=== PATIENT | female | born 1960 | race Caucasian/White ===

== ENCOUNTER 2017-05-26 16:30 | Emergency (ER) | payer MEDICARE, MEDICAID ==
[2017-05-26] MEDS ORDERED: Sodium Chloride 0.9% 10 ML Syringe FLUSH PRN (16:52)
--- NOTE | 2017-05-26 17:06 | EDM.PDOC ---
ED HPI GENERAL MEDICAL PROBLEM - General Chief Complaint: Respiratory Problem Stated Complaint: ILLNESS Time Seen by Provider: 05/26/17 16:40 Source of Information: Reports: Patient, Family History Limitations: Reports: No Limitations - History of Present Illness INITIAL COMMENTS - FREE TEXT/NARRATIVE: 49-year-old female who has chronic bronchitis, and a history of CHF presents with worsening cough, congestion, and low O2 saturations at the alf. She was seen in the clinic 3 days ago and given some pulmonary treatments. She seems to be worsening however, no fever. She was brought in by private car, her sisters brought her in because she is worsening. On arrival her O2 saturations were 85%, yamil to 93% on oxygen but she normally does not need O2. She is also complained of some intermittent right chest discomfort, worse with breathing. Onset: Gradual (Over the past several days) Severity: Moderate Associated Symptoms: Reports: Malaise, Shortness of Breath, Weakness. Denies: Fever/Chills, Headaches Right Chest Pain Score (Numeric/FACES): 5 - Related Data Allergies Allergy/AdvReac Type Severity Reaction Status Date / Time aspirin Allergy Cannot Verified 01/02/15 08:25 Remember cefaclor [From Ceclor] Allergy Cannot Verified 01/02/15 08:25 Remember Penicillins Allergy Rash Verified 01/02/15 08:25 Sulfa (Sulfonamide Allergy Rash Verified 01/02/15 08:25 Antibiotics) Home Meds: Home Meds ALPRAZolam [Alprazolam] 1 mg PO QID 03/19/14 [History] Acetaminophen [Acetaminophen Extra Strength] 1 - 2 tab PO Q46H PRN 03/19/14 [ History] Albuterol [Proventil Neb Soln] 1 ampule IH Q4H PRN 03/19/14 [History] Uqecv-M-Lhnswbmfhospk [Beano] 2 - 3 tab PO TIDAC 03/19/14 [History] Budesonide [Pulmicort] 0.5 mg IH BID 03/19/14 [History] Citalopram Hydrobromide [Citalopram HBr] 40 mg PO DAILY 03/19/14 [History] Codeine/guaiFENesin [Robitussin AC] 5 - 10 ml PO QID PRN 03/19/14 [History] Fluticasone Propionate [Flonase] 2 spray KANDI DAILY 03/19/14 [History] Ibuprofen 2 - 3 tab PO Q46H PRN 03/19/14 [History] Loperamide HCl [Anti-Diarrheal] 2 mg PO QID PRN 03/19/14 [History] Loratadine [Claritin] 1 mg PO DAILY 03/19/14 [History] Montelukast [Singulair] 10 mg PO DAILY 03/19/14 [History] Multivitamin [Multiple Vitamins] 1 tab PO DAILY 03/19/14 [History] Pseudoephedrine HCl [Nexafed] 30 mg PO Q6H PRN 03/19/14 [History] Acetaminophen with Codeine [Tylenol with Codeine #3 Tablet] 1 - 2 tab PO Q4HR PRN 12/31/14 [History] Ferrous Sulfate [Ferrous Sulfate] 325 mg PO DAILY 12/31/14 [History] Furosemide [Furosemide] 40 mg PO DAILY 12/31/14 [History] Albuterol [Ventolin HFA] 2 puff INH Q4H PRN 05/26/17 [History] Ipratropium [Atrovent HFA] 2 puff INH BID 05/26/17 [History] Ipratropium [Atrovent] 2.5 ml INH BID PRN 05/26/17 [History] Nystatin 1 appful TOP BID 05/26/17 [History] guaiFENesin [Robafen] 10 ml PO Q6H PRN 05/26/17 [History] Past Medical History HEENT History: Reports: Hard of Hearing Cardiovascular History: Reports: Hypertension Other Cardiovascular History: open heart Respiratory History: Reports: Bronchitis, Recurrent Psychiatric History: Reports: Anxiety, Developmental Delay, Learning Disability , Other (See Below) Other Psychiatric History: personality disorder - Past Surgical History Other Cardiovascular Surgeries/Procedures: open heart surg when [age]. mitral valve insuficiency, tricuspid valve desease cardiomegaly Other Musculoskeletal Surgeries/Procedures:: right knee three screws Social & Family History - Tobacco Use Smoking Status *Q: Never Smoker Second Hand Smoke Exposure: No - Caffeine Use Caffeine Use: Reports: Coffee - Alcohol Use Days Per Week of Alcohol Use: 0 - Recreational Drug Use Recreational Drug Use: No ED ROS GENERAL - Review of Systems Review Of Systems: See Below Constitutional: Reports: Malaise, Weakness. Denies: Fever, Chills HEENT: Reports: No Symptoms Respiratory: Reports: Shortness of Breath, Wheezing, Cough Cardiovascular: Reports: Chest Pain (Right sided, intermittent) GI/Abdominal: Denies: Abdominal Pain, Nausea, Vomiting : Reports: No Symptoms Neurological: Denies: Headache Psychiatric: Reports: No Symptoms ED EXAM, GENERAL - Physical Exam Exam: See Below Exam Limited By: Respiratory Distress (Appears to be in mild respiratory distress with increased effort, persistent moist cough) General Appearance: Alert, Mild Distress Eye Exam: Bilateral Eye: EOMI, Normal Inspection (No jaundice, normal hydration) Throat/Mouth: Normal Inspection Respiratory/Chest: Respiratory Distress (Mild respiratory distress and increased effort is noticed), Rales (Bilateral basilar rales are heard somewhat worse on the right), Wheezing (Diffuse expiratory wheezing) Cardiovascular: Regular Rate, Rhythm GI/Abdominal: Soft, Non-Tender, Other (morbidly patient is morbidly obese) Extremities: Pedal Edema (1+ symmetric pedal edema) Neurological: Alert, Oriented Psychiatric: Flat Affect Skin Exam: Warm, Dry Course - Vital Signs Last Recorded V/S: Last Vital Signs Temp 100.2 F 05/26/17 18:38 Pulse 94 05/26/17 18:38 Resp 18 05/26/17 18:38 BP 128/74 05/26/17 18:38 Pulse Ox 91 L 05/26/17 18:38 - Orders/Labs/Meds Orders: Active Orders 24 hr Category Date Time Status Insert Urinary Catheter [OM.PC] Stat Care 05/26/17 18:00 Ordered Urinary Catheter Assessment [RC] ASDIRECTED Care 05/26/17 17:50 Active Chest 1V Frontal [CR] Stat Exams 05/26/17 16:51 Taken CULTURE BLOOD [BC] Urgent Lab 05/26/17 17:43 Results CULTURE BLOOD [BC] Urgent Lab 05/26/17 17:53 Results Blood Culture x2 Reflex Set [OM.PC] Urgent Oth 05/26/17 17:39 Ordered Saline Lock Insert [OM.PC] Routine Oth 05/26/17 16:52 Ordered Labs: Laboratory Tests 05/26/17 05/26/17 05/26/17 Range/Units 17:06 17:06 17:50 WBC 18.5 H (4.5-11.0) K/uL RBC 4.59 (3.30-5.50) M/uL Hgb 12.9 D (12.0-15.0) g/dL Hct 41.5 (36.0-48.0) % MCV 90 (80-98) fL MCH 28 (27-31) pg MCHC 31 L (32-36) % Plt Count 161 (150-400) K/uL Add Manual Diff Yes Neutrophils % (Manual) 73 H (36-66) % Band Neutrophils % 10 (5-11) % Lymphocytes % (Manual) 4 L (24-44) % Monocytes % (Manual) 12 H (2-6) % Metamyelocytes % 1 % Sodium 138 L (140-148) mmol/L Potassium 4.1 (3.6-5.2) mmol/L Chloride 98 L (100-108) mmol/L Carbon Dioxide 30 (21-32) mmol/L Anion Gap 14.1 H (5.0-14.0) mmol/L BUN 22 H D (7-18) mg/dL Creatinine 1.3 H D (0.6-1.0) mg/dL Est Cr Clr Drug Dosing 33.88 mL/min Estimated GFR (MDRD) 42 L (>60) Glucose 110 H (74-106) mg/dL Lactic Acid (0.4-2.0) mmol/L Calcium 8.2 L D (8.5-10.1) mg/dL Total Bilirubin 0.7 D (0.2-1.0) mg/dL AST 58 H D (15-37) U/L ALT 57 D (12-78) U/L Alkaline Phosphatase 102 (46-116) U/L Troponin I 0.062 H* (0.000-0.056) ng/mL Total Protein 6.7 (6.4-8.2) g/dL Albumin 3.0 L (3.4-5.0) g/dL Globulin 3.7 H (2.3-3.5) g/dL Albumin/Globulin Ratio 0.8 L (1.2-2.2) Urine Color [place] Urine Appearance Cloudy Urine pH 5.0 (4.5-8.0) Ur Specific [place] 1.020 (1.008-1.030) Urine Protein Negative (NEGATIVE) mg/dL Urine Glucose (UA) Normal (NEGATIVE) mg/dL Urine Ketones Negative (NEGATIVE) mg/dL Urine Occult Blood Negative (NEGATIVE) Urine Nitrite Negative (NEGATIVE) Urine Bilirubin Small (NEGATIVE) Urine Urobilinogen 1 (NORMAL) mg/dL Ur Leukocyte Esterase Negative (NEGATIVE) Urine RBC 0-5 (0-5) Urine WBC 5-10 H (0-5) Ur Epithelial Cells Moderate Amorphous Sediment Moderate Urine Bacteria Few Urine Mucus Moderate 05/26/17 Range/Units 17:53 WBC (4.5-11.0) K/uL RBC (3.30-5.50) M/uL Hgb (12.0-15.0) g/dL Hct (36.0-48.0) % MCV (80-98) fL MCH (27-31) pg MCHC (32-36) % Plt Count (150-400) K/uL Add Manual Diff Neutrophils % (Manual) (36-66) % Band Neutrophils % (5-11) % Lymphocytes % (Manual) (24-44) % Monocytes % (Manual) (2-6) % Metamyelocytes % % Sodium (140-148) mmol/L Potassium (3.6-5.2) mmol/L Chloride (100-108) mmol/L Carbon Dioxide (21-32) mmol/L Anion Gap (5.0-14.0) mmol/L BUN (7-18) mg/dL Creatinine (0.6-1.0) mg/dL Est Cr Clr Drug Dosing mL/min Estimated GFR (MDRD) (>60) Glucose (74-106) mg/dL Lactic Acid 2.6 H (0.4-2.0) mmol/L Calcium (8.5-10.1) mg/dL Total Bilirubin (0.2-1.0) mg/dL AST (15-37) U/L ALT (12-78) U/L Alkaline Phosphatase (46-116) U/L Troponin I (0.000-0.056) ng/mL Total Protein (6.4-8.2) g/dL Albumin (3.4-5.0) g/dL Globulin (2.3-3.5) g/dL Albumin/Globulin Ratio (1.2-2.2) Urine Color Urine Appearance Urine pH (4.5-8.0) Ur Specific [place] (1.008-1.030) Urine Protein (NEGATIVE) mg/dL Urine Glucose (UA) (NEGATIVE) mg/dL Urine Ketones (NEGATIVE) mg/dL Urine Occult Blood (NEGATIVE) Urine Nitrite (NEGATIVE) Urine Bilirubin (NEGATIVE) Urine Urobilinogen (NORMAL) mg/dL Ur Leukocyte Esterase (NEGATIVE) Urine RBC (0-5) Urine WBC (0-5) Ur Epithelial Cells Amorphous Sediment Urine Bacteria Urine Mucus Meds: Medications Discontinued Medications Generic Name Dose Route Start Last Admin Trade Name Freq PRN Reason Stop Dose Admin Acetaminophen 1,000 mg 05/26/17 18:07 05/26/17 18:13 Tylenol Extra Strength PO 05/26/17 18:08 1,000 mg ONETIME ONE Administration Furosemide 80 mg 05/26/17 17:25 05/26/17 17:38 Lasix IVPUSH 05/26/17 17:26 80 mg ONETIME ONE Administration Levofloxacin/Dextrose 750 mg/ 150 mls @ 100 mls/hr 05/26/17 18:08 05/26/17 18 :15 Premix IV 05/26/17 19:37 100 mls/hr ONETIME ONE Administration Sodium Chloride 10 ml 05/26/17 16:52 05/26/17 17:16 Saline Flush FLUSH 10 ml ASDIRECTED PRN Administration Keep Vein Open - Re-Assessments/Exams Free Text/Narrative Re-Assessment/Exam: 05/26/17 18:09 An IV was established. A portable chest x-ray showed likely congestive heart failure, cardiomegaly and a right upper lobe infiltrate. Patient was then given 80 mg of IV Lasix, blood cultures and lactic acid were obtained followed by 750 mg of IV Levaquin. There were no hospital beds available so she was transferred to [place], accepted by Dr. Liriano. She is a DNR. 05/26/17 18:10 White count revealed 18.5. Lactic acid 2.6. Developing sepsis was likely, fluids were continued. Departure - Departure Time of Disposition: 18:50 Disposition: Home, Self-Care 01 Condition: Poor Clinical Impression: Pneumonia, Septicemia Congestive heart failure Qualifiers: Congestive heart failure type: combined Congestive heart failure chronicity: acute on chronic Qualified Code(s): I50.43 - Acute on chronic combined systolic (congestive) and diastolic (congestive) heart failure - Discharge Information Referrals: Christian Fernandez MD [Primary Care Provider] - Forms: ED Department Discharge Care Plan Goals: Patient will be transferred by EMS to [place], admitted to the hospitalist service at [facility]. - My Orders Last 24 Hours: My Active Orders 05/26/17 16:51 Chest 1V Frontal [CR] Stat 05/26/17 16:52 Saline Lock Insert [OM.PC] Routine 05/26/17 17:39 Blood Culture x2 Reflex Set [OM.PC] Urgent 05/26/17 17:43 CULTURE BLOOD [BC] Urgent 05/26/17 17:50 Urinary Catheter Assessment [RC] ASDIRECTED 05/26/17 17:53 CULTURE BLOOD [BC] Urgent 05/26/17 18:00 Insert Urinary Catheter [OM.PC] Stat - Assessment/Plan Last 24 Hours: My Active Orders 05/26/17 16:51 Chest 1V Frontal [CR] Stat 05/26/17 16:52 Saline Lock Insert [OM.PC] Routine 05/26/17 17:39 Blood Culture x2 Reflex Set [OM.PC] Urgent 05/26/17 17:43 CULTURE BLOOD [BC] Urgent 05/26/17 17:50 Urinary Catheter Assessment [RC] ASDIRECTED 05/26/17 17:53 CULTURE BLOOD [BC] Urgent 05/26/17 18:00 Insert Urinary Catheter [OM.PC] Stat
[2017-05-26] MEDS ORDERED: Furosemide 40 MG/4 ML VIAL IVPUSH ONE (17:25)
[2017-05-26] MEDS ORDERED: Acetaminophen 500 MG Tab PO ONE (18:07)
[2017-05-26] MEDS ORDERED: Levofloxacin/Dextrose 5%-Water 750 MG in Premix Bag 1 BAG IV ONE (18:08)
[2017-05-26 18:39] VITALS: BP 128/74
--- NOTE | 2017-05-27 11:58 | CR ---
Portable chest Comparison: March 2014. There is cardiac enlargement. There is vascular engorgement. There are small bilateral effusions. The re is a pleural-based soft tissue density in the peripheral right upper lobe. The finding may reflect a dense pneumonia. A mass cannot be excluded. Impression: 1. CHF with interstitial edema and small effusions. 2. Focal pleural-based density peripheral right upper lobe. Correlate for pneumonia. Close follow-up recommended. A mass is not excluded.
== END 2017-05-26 18:50 | disposition home or self-care (01) ==
LOC: JP.ED 16:30
DX: A41.9 Sepsis, unspecified organism (principal); J18.9 Pneumonia, unspecified organism; I11.0 Hypertensive heart disease with heart failure; I50.43 Acute on chronic combined systolic (congestive) and diastolic (congestive) heart failure; Z88.2 Allergy status to sulfonamides
CPT/HCPCS: 36415; 51702; 71010; 80053; 81001; 83605; 84484; 85025; 87040; 87077; 87184; 96365; 96375; 99284; A9270; J1940; J1956; J7050

== ENCOUNTER 2017-12-26 12:15 | Inpatient (IN) | payer MEDICARE, MEDICAID ==
[2017-12-26] MEDS ORDERED: Albuterol/Ipratropium 3.0-0.5 MG/3 ML Neb Soln NEB ONE (13:09)
--- NOTE | 2017-12-26 13:13 | EDM.PDOC ---
ED HPI GENERAL MEDICAL PROBLEM - General Chief Complaint: Respiratory Problem Stated Complaint: SINUS INFECTION LOW 02 Time Seen by Provider: 12/26/17 13:00 Source of Information: Reports: Patient, Family History Limitations: Reports: No Limitations - History of Present Illness INITIAL COMMENTS - FREE TEXT/NARRATIVE: 49-year-old female who has COPD, [facility] who uses oxygen usually only at night has had an upper respiratory cold for the past several weeks but over the past several days it has gotten much worse, went into her lungs, she is coughing, short of breath, and her O2 sats are lower than her usual baseline. She's been running low-grade fevers. Cough is becoming productive. No nausea or vomiting, no significant pain. Onset: Gradual Severity: Moderate Associated Symptoms: Reports: Cough, Fever/Chills, Shortness of Breath, Weakness. Denies: Chest Pain, Nausea/Vomiting Back Pain Score (Numeric/FACES): 3 Left Shoulder Pain Score (Numeric/FACES): 4 - Related Data Allergies Allergy/AdvReac Type Severity Reaction Status Date / Time aspirin Allergy Cannot Verified 01/02/15 08:25 Remember cefaclor [From Ceclor] Allergy Cannot Verified 01/02/15 08:25 Remember Penicillins Allergy Rash Verified 01/02/15 08:25 Sulfa (Sulfonamide Allergy Rash Verified 01/02/15 08:25 Antibiotics) Home Meds: Home Meds ALPRAZolam [Alprazolam] 1 mg PO TID 03/19/14 [History] Albuterol [Proventil Neb Soln] 1 ampule IH Q4H PRN 03/19/14 [History] Budesonide [Pulmicort] 0.5 mg IH BID 03/19/14 [History] Citalopram Hydrobromide [Citalopram HBr] 40 mg PO DAILY 03/19/14 [History] Fluticasone Propionate [Flonase] 1 spray KANDI BID 03/19/14 [History] Loratadine [Claritin] 10 mg PO DAILY 03/19/14 [History] Montelukast [Singulair] 10 mg PO DAILY 03/19/14 [History] Multivitamin [Multiple Vitamins] 1 tab PO DAILY 03/19/14 [History] Pseudoephedrine HCl [Nexafed] 30 mg PO Q6H PRN 03/19/14 [History] Ferrous Sulfate 325 mg PO DAILY 12/31/14 [History] Albuterol [Ventolin HFA] 2 puff INH Q4H PRN 05/26/17 [History] Nystatin 1 appful TOP BID 05/26/17 [History] guaiFENesin [Robafen] 10 ml PO Q4H PRN 05/26/17 [History] Acetaminophen [Acetaminophen ER] 500 mg PO QID 12/26/17 [History] Clindamycin HCl 600 mg PO ASDIRECTED PRN 12/26/17 [History] Dextran 70/Hypromellose/PF [Artificial Tears Drops] 1 each OP Q4H PRN 12/26/17 [ History] Nystatin 1 each TOP ASDIRECTED PRN 12/26/17 [History] Sennosides/Docusate Sodium [Senna Plus Tablet] 2 tab PO Q12HR PRN 12/26/17 [ History] Triamterene/Hydrochlorothiazid [Triamterene-HCTZ 37.5-25 MG] 1 each PO DAILY [History] traMADol HCl [Tramadol HCl] 50 mg PO QID PRN 12/26/17 [History] Past Medical History HEENT History: Reports: Hard of Hearing Cardiovascular History: Reports: Hypertension Other Cardiovascular History: open heart Respiratory History: Reports: Bronchitis, Recurrent Psychiatric History: Reports: Anxiety, Developmental Delay, Learning Disability , Other (See Below) Other Psychiatric History: personality disorder - Infectious Disease History Infectious Disease History: Reports: Chicken Pox, Measles, Mumps - Past Surgical History Other Cardiovascular Surgeries/Procedures: open heart surg when [age]. mitral valve insuficiency, tricuspid valve desease cardiomegaly Other Musculoskeletal Surgeries/Procedures:: right knee three screws Social & Family History - Tobacco Use Smoking Status *Q: Never Smoker - Caffeine Use Caffeine Use: Reports: Coffee - Recreational Drug Use Recreational Drug Use: No ED ROS GENERAL - Review of Systems Review Of Systems: See Below Constitutional: Denies: Fever, Chills Respiratory: Reports: Shortness of Breath, Cough, Sputum Cardiovascular: Denies: Chest Pain GI/Abdominal: Denies: Abdominal Pain, Nausea, Vomiting : Reports: No Symptoms Skin: Reports: No Symptoms Neurological: Reports: Weakness. Denies: Headache ED EXAM, GENERAL - Physical Exam Exam: See Below Exam Limited By: No Limitations General Appearance: Alert, No Apparent Distress Head: Atraumatic Respiratory/Chest: No Respiratory Distress, Crackles, Rales, Wheezing (Patient has diffuse rales, expiratory wheezes), Other (O2 saturations were only in the low to mid 80s without O2, O2 was applied) Cardiovascular: Regular Rate, Rhythm Neurological: Alert, Oriented Psychiatric: Normal Affect, Normal Mood Skin Exam: Warm, Dry Course - Vital Signs Last Recorded V/S: Last Vital Signs Temp 98.1 F 12/27/17 11:44 Pulse 74 12/27/17 11:44 Resp 16 12/27/17 11:44 BP 91/71 12/27/17 11:44 Pulse Ox 91 L 12/27/17 11:44 - Orders/Labs/Meds Orders: Active Orders 24 hr Category Date Time Status UA W/MICROSCOPIC [URIN] Stat Lab 12/26/17 14:44 Ordered Medication Orders Acetaminophen (Tylenol) 650 mg PO Q4H PRN PRN Reason: Pain (Mild 1-3)/fever Last Admin: 12/27/17 00:36 Dose: 650 mg Admin: 12/26/17 20:15 Dose: 650 mg Albuterol (Proventil Neb Soln) 2.5 mg INH Q4H PRN PRN Reason: Shortness of Breath Albuterol (Ventolin Hfa) 0 gm INH Q4H PRN PRN Reason: Shortness of Breath Albuterol/Ipratropium (Duoneb 3.0-0.5 Mg/3 Ml) 3 ml NEB QIDRT [facility] Last Admin: 12/27/17 11:07 Dose: 3 ml Admin: 12/27/17 07:28 Dose: 3 ml Admin: 12/26/17 20:46 Dose: 3 ml Admin: 12/26/17 16:51 Dose: 3 ml Alprazolam (Xanax) 1 mg PO QID [facility] Last Admin: 12/27/17 09:06 Dose: 1 mg Admin: 12/27/17 05:04 Dose: 1 mg Admin: 12/26/17 21:04 Dose: 1 mg Admin: 12/26/17 16:50 Dose: 1 mg Budesonide (Pulmicort) 0.5 mg INH BIDRT [facility] Last Admin: 12/27/17 07:28 Dose: 0.5 mg Admin: 12/26/17 20:46 Dose: 0.5 mg Citalopram Hydrobromide (Celexa) 40 mg PO DAILY [facility] Last Admin: 12/27/17 08:54 Dose: 40 mg Enoxaparin Sodium (Lovenox) 40 mg SUBCUT Q24H [facility] Last Admin: 12/26/17 17:00 Dose: 40 mg Fluticasone Propionate (Flonase) 0 gm KANDI DAILY [facility] Last Admin: 12/27/17 08:54 Dose: 2 spray Furosemide (Lasix) 40 mg PO DAILY [facility] Last Admin: 12/27/17 08:54 Dose: 40 mg Guaifenesin/Codeine Phosphate (Robitussin Ac) 5 - 10 ml PO Q4H PRN PRN Reason: Cough Last Admin: 12/26/17 21:00 Dose: 10 ml Levofloxacin/Dextrose 500 mg/ (Premix) 100 mls @ 100 mls/hr IV Q24H [facility] Last Admin: 12/26/17 16:43 Dose: 100 mls/hr Sodium Chloride (Normal Saline) 1,000 mls @ 75 mls/hr IV ASDIRECTED [facility] Last Admin: 12/27/17 05:03 Dose: 75 mls/hr Infusion: 12/27/17 05:03 Dose: 75 mls/hr Admin: 12/26/17 17:00 Dose: 75 mls/hr Loratadine (Claritin) 10 mg PO DAILY [facility] Last Admin: 12/27/17 08:54 Dose: 10 mg Magnesium Hydroxide (Milk Of Magnesia) 30 ml PO Q12H PRN PRN Reason: Constipation Methylprednisolone Sodium Succinate (Solu-Medrol) 40 mg IVPUSH Q6H [facility] Last Admin: 12/27/17 09:06 Dose: 40 mg Admin: 12/27/17 03:46 Dose: 40 mg Admin: 12/26/17 21:04 Dose: 40 mg Admin: 12/26/17 16:43 Dose: 40 mg Montelukast Sodium (Singulair) 10 mg PO DAILY [facility] Last Admin: 12/27/17 08:55 Dose: 10 mg Ondansetron HCl (Zofran) 4 mg IV Q4H PRN PRN Reason: Nausea/Vomiting Polyethylene Glycol (Miralax) 17 gm PO DAILY PRN PRN Reason: Constipation Senna/Docusate Sodium (Senna Plus) 1 tab PO BID PRN PRN Reason: Constipation Sodium Chloride (Saline Flush) 10 ml FLUSH ASDIRECTED PRN PRN Reason: Keep Vein Open Tramadol HCl (Ultram) 50 mg PO QID [facility] Last Admin: 12/27/17 09:06 Dose: 50 mg Admin: 12/27/17 05:03 Dose: 50 mg Admin: 12/26/17 21:04 Dose: 50 mg Admin: 12/26/17 16:44 Dose: 50 mg Triamterene/HCTZ (Maxzide 25-37.5 Mg) 1 each PO DAILY [facility] Last Admin: 12/27/17 08:55 Dose: 1 each Labs: Laboratory Tests 12/26/17 12/26/17 12/26/17 Range/Units 13:18 13:18 14:44 WBC 7.2 (4.5-11.0) K/uL RBC 5.07 (3.30-5.50) M/uL Hgb 13.7 (12.0-15.0) g/dL Hct 42.5 (36.0-48.0) % MCV 84 (80-98) fL MCH 27 (27-31) pg MCHC 32 (32-36) % Plt Count 159 (150-400) K/uL Neut % (Auto) 77 H (36-66) % Lymph % (Auto) 11 L (24-44) % [place] % (Auto) 11 H (2-6) % Eos % (Auto) 1 L (2-4) % Baso % (Auto) 0 (0-1) % Sodium 139 L (140-148) mmol/L Potassium 3.7 (3.6-5.2) mmol/L Chloride 98 L (100-108) mmol/L Carbon Dioxide 33 H (21-32) mmol/L Anion Gap 11.7 (5.0-14.0) mmol/L BUN 8 (7-18) mg/dL Creatinine 0.6 (0.6-1.0) mg/dL Est Cr Clr Drug Dosing 73.41 mL/min Estimated GFR (MDRD) > 60 (>60) Glucose 96 (74-106) mg/dL Calcium 8.3 L (8.5-10.1) mg/dL Urine Color Yellow Urine Appearance Clear Urine pH 7.0 (4.5-8.0) Ur Specific [place] 1.005 L (1.008-1.030) Urine Protein Negative (NEGATIVE) mg/dL Urine Glucose (UA) Normal (NEGATIVE) mg/dL Urine Ketones Negative (NEGATIVE) mg/dL Urine Occult Blood Negative (NEGATIVE) Urine Nitrite Negative (NEGATIVE) Urine Bilirubin Negative (NEGATIVE) Urine Urobilinogen Normal (NORMAL) mg/dL Ur Leukocyte Esterase Negative (NEGATIVE) Urine RBC Not seen (0-5) Urine WBC 0-5 (0-5) Ur Epithelial Cells Few Amorphous Sediment Not seen Urine Bacteria Not seen Urine Mucus Not seen Meds: Medications Generic Name Dose Route Start Last Admin Trade Name Freq PRN Reason Stop Dose Admin Acetaminophen 650 mg 12/26/17 15:23 12/27/17 00:36 Tylenol PO 650 mg Q4H PRN Administration Pain (Mild 1-3)/fever Albuterol 2.5 mg 12/26/17 15:23 Proventil Neb Soln INH Q4H PRN Shortness of Breath Albuterol 0 gm 12/26/17 15:23 Ventolin Hfa INH Q4H PRN Shortness of Breath Albuterol/Ipratropium 3 ml 12/26/17 16:00 12/27/17 11:07 Duoneb 3.0-0.5 Mg/3 Ml NEB 3 ml QIDRT [facility] Administration Alprazolam 1 mg 12/26/17 16:00 12/27/17 09:06 Xanax PO 1 mg QID [facility] Administration Budesonide 0.5 mg 12/26/17 21:00 12/27/17 07:28 Pulmicort INH 0.5 mg BIDRT [facility] Administration Citalopram Hydrobromide 40 mg 12/27/17 09:00 12/27/17 08:54 Celexa PO 40 mg DAILY [facility] Administration Enoxaparin Sodium 40 mg 12/26/17 18:00 12/26/17 17:00 Lovenox SUBCUT 40 mg Q24H [facility] Administration Fluticasone Propionate 0 gm 12/27/17 09:00 12/27/17 08:54 Flonase KANDI 2 spray DAILY [facility] Administration Furosemide 40 mg 12/27/17 09:00 12/27/17 08:54 Lasix PO 40 mg DAILY [facility] Administration Guaifenesin/Codeine Phosphate 5 - 10 ml 12/26/17 15:23 12/26/17 21:00 Robitussin Ac PO 10 ml Q4H PRN Administration Cough Levofloxacin/Dextrose 500 mg/ 100 mls @ 100 mls/hr 12/26/17 16:00 12/26/17 16 :43 Premix IV 100 mls/hr Q24H [facility] Administration Sodium Chloride 1,000 mls @ 75 mls/hr 12/26/17 15:23 12/27/17 05:03 Normal Saline IV 75 mls/hr ASDIRECTED [facility] Administration Loratadine 10 mg 12/27/17 09:00 12/27/17 08:54 Claritin PO 10 mg DAILY [facility] Administration Magnesium Hydroxide 30 ml 12/26/17 15:23 Milk Of Magnesia PO Q12H PRN Constipation Methylprednisolone Sodium Succinate 40 mg 12/26/17 16:00 12/27/17 09:06 Solu-Medrol IVPUSH 40 mg Q6H [facility] Administration Montelukast Sodium 10 mg 12/27/17 09:00 12/27/17 08:55 Singulair PO 10 mg DAILY [facility] Administration Ondansetron HCl 4 mg 12/26/17 15:23 Zofran IV Q4H PRN Nausea/Vomiting Polyethylene Glycol 17 gm 12/26/17 15:23 Miralax PO DAILY PRN Constipation Senna/Docusate Sodium 1 tab 12/26/17 15:23 Senna Plus PO BID PRN Constipation Sodium Chloride 10 ml 12/26/17 15:23 Saline Flush FLUSH ASDIRECTED PRN Keep Vein Open Tramadol HCl 50 mg 12/26/17 16:00 12/27/17 09:06 Ultram PO 50 mg QID [facility] Administration Triamterene/HCTZ 1 each 12/27/17 09:00 12/27/17 08:55 Maxzide 25-37.5 Mg PO 1 each DAILY [facility] Administration Discontinued Medications Generic Name Dose Route Start Last Admin Trade Name Freq PRN Reason Stop Dose Admin Albuterol/Ipratropium 3 ml 12/26/17 13:09 12/26/17 13:37 Duoneb 3.0-0.5 Mg/3 Ml NEB 12/26/17 13:10 3 ml ONETIME ONE Administration - Re-Assessments/Exams Free Text/Narrative Re-Assessment/Exam: 12/26/17 13:12 Nasal cannula O2 helped her sats remain in the upper 80s to low 90s, a two-view chest x-ray was obtained as well as a CBC and BMP and the patient was supplied with a DuoNeb. 12/26/17 14:15 White count and hemoglobin was normal. Electrolytes are reassuring. Two-view chest x-ray showed some fluid in the pleural fissure on the lateral view but no significant infiltrates. Despite the DuoNeb the patient still needed 4 L of oxygen to maintain saturations at 88-89%. Even a small amount of activity causes dyspnea. I think she'll need some IV steroids for the next 1-2 days and antibiotics on an inpatient basis. I discussed this with Dr. Momin and he agreed to see the patient and assess for admission. Departure - Departure Time of Disposition: 15:29 Disposition: Admitted As Inpatient 65 Condition: Fair Clinical Impression: COPD with acute exacerbation, Bronchitis, Hypoxia - Discharge Information - My Orders Last 24 Hours: My Active Orders 12/26/17 14:44 UA W/MICROSCOPIC [URIN] Stat - Assessment/Plan Last 24 Hours: My Active Orders 12/26/17 14:44 UA W/MICROSCOPIC [URIN] Stat
--- NOTE | 2017-12-26 15:17 | PCM.HP ---
H&P History of Present Illness - General Date of Service: 12/26/17 Admit Problem/Dx: Source of Information: Patient, Old Records, Provider, RN Notes Reviewed History Limitations: Reports: Altered Mental Status (Congenital cognitive impairment) - History of Present Illness Initial Comments - Free Text/Narative: Ms. Marti 57-year-old woman who is admitted through the emergency department with shortness of breath and hypoxia secondary to COPD exacerbation with bronchitis. She has a known history of COPD, over the past few weeks has come progressively more short of breath with associated cough. In the past she has had difficulty with environmental allergies. Symptoms of been worse over the past few days and her sputum has become yellow in color. This morning nursing staff at the [facility] found her to be hypoxic, when she did not respond to nebulizer therapy, she was brought into the emergency department by ambulance. When she first arrived here was found to be hypoxic, oxygen saturation has improved with supplemental oxygen. She is receiving nebulizer therapy which seems to help modestly. White blood cell count is normal and chest x-ray shows no evidence of acute infiltrate. - Related Data Allergies/Adverse Reactions: Allergies Allergy/AdvReac Type Severity Reaction Status Date / Time aspirin Allergy Cannot Verified 01/02/15 08:25 Remember cefaclor [From Ceclor] Allergy Cannot Verified 01/02/15 08:25 Remember Penicillins Allergy Rash Verified 01/02/15 08:25 Sulfa (Sulfonamide Allergy Rash Verified 01/02/15 08:25 Antibiotics) Home Medications: Home Meds ALPRAZolam [Alprazolam] 1 mg PO QID 03/19/14 [History] Albuterol [Proventil Neb Soln] 1 ampule IH Q4H PRN 03/19/14 [History] Wukkc-O-Zfrixokghquph [Beano] 2 - 3 tab PO TIDAC 03/19/14 [History] Budesonide [Pulmicort] 0.5 mg IH BID 03/19/14 [History] Citalopram Hydrobromide [Citalopram HBr] 40 mg PO DAILY 03/19/14 [History] Codeine/guaiFENesin [Robitussin AC] 5 - 10 ml PO QID PRN 03/19/14 [History] Fluticasone Propionate [Flonase] 2 spray KANDI DAILY 03/19/14 [History] Ibuprofen 2 - 3 tab PO Q46H PRN 03/19/14 [History] Loperamide HCl [Anti-Diarrheal] 2 mg PO QID PRN 03/19/14 [History] Loratadine [Claritin] 10 mg PO DAILY 03/19/14 [History] Montelukast [Singulair] 10 mg PO DAILY 03/19/14 [History] Multivitamin [Multiple Vitamins] 1 tab PO DAILY 03/19/14 [History] Pseudoephedrine HCl [Nexafed] 30 mg PO Q6H PRN 03/19/14 [History] Ferrous Sulfate 325 mg PO DAILY 12/31/14 [History] Furosemide 40 mg PO DAILY 12/31/14 [History] Albuterol [Ventolin HFA] 2 puff INH Q4H PRN 05/26/17 [History] Ipratropium [Atrovent] 2.5 ml INH BID PRN 05/26/17 [History] Nystatin 1 appful TOP BID 05/26/17 [History] guaiFENesin [Robafen] 10 ml PO Q6H PRN 05/26/17 [History] Acetaminophen [Acetaminophen ER] 500 mg PO QID 12/26/17 [History] Triamterene/Hydrochlorothiazid [Triamterene-HCTZ 37.5-25 MG] 1 each PO DAILY [History] traMADol HCl [Tramadol HCl] 50 mg PO QID 12/26/17 [History] Past Medical History HEENT History: Reports: Hard of Hearing Cardiovascular History: Reports: Hypertension, Other (See Below) (Tetralogy of Fallot) Other Cardiovascular History: open heart Respiratory History: Reports: Bronchitis, Recurrent, COPD Psychiatric History: Reports: Anxiety, Developmental Delay, Learning Disability , Other (See Below) Other Psychiatric History: personality disorder - Infectious Disease History Infectious Disease History: Reports: Chicken Pox, Measles, Mumps - Past Surgical History Other Cardiovascular Surgeries/Procedures: open heart surg when [age]. mitral valve insuficiency, tricuspid valve desease cardiomegaly Other Musculoskeletal Surgeries/Procedures:: right knee three screws Social & Family History - Tobacco Use Smoking Status *Q: Never Smoker - Caffeine Use Caffeine Use: Reports: Coffee - Recreational Drug Use Recreational Drug Use: No H&P Review of Systems - Review of Systems: Review Of Systems: See Below General: Reports: Malaise, Weakness, Fatigue, Decreased Appetite. Denies: Fever , Chills HEENT: Reports: No Symptoms Pulmonary: Reports: Shortness of Breath, Wheezing, Cough, Sputum. Denies: Pleuritic Chest Pain, Hemoptysis Cardiovascular: Reports: Dyspnea on Exertion. Denies: Chest Pain, Palpitations , Orthopnea, PND, Edema, Lightheadedness Gastrointestinal: Reports: No Symptoms Genitourinary: Reports: No Symptoms Musculoskeletal: Reports: No Symptoms Skin: Reports: No Symptoms Psychiatric: Reports: No Symptoms Neurological: Reports: No Symptoms Hematologic/Lymphatic: Reports: No Symptoms Immunologic: Reports: No Symptoms Exam - Exam Exam: See Below - Vital Signs Vital Signs: Last Vital Signs Temp 98.1 F 12/26/17 12:44 Pulse 88 12/26/17 12:44 Resp 13 12/26/17 12:44 BP 149/71 H 12/26/17 12:44 Pulse Ox 84 L 12/26/17 12:44 Weight: 180 lb 15.992 oz - Exam Quality Assessment: Supplemental Oxygen, DVT Prophylaxis General: Alert, Cooperative, Mild Distress HEENT: Conjunctiva Clear, Hearing Intact, Mucosa Moist & [place], Normal Nasal Septum, Posterior Pharynx Clear, Pupils Equal Neck: Supple, Trachea Midline, +2 Carotid Pulse wo Bruit Lungs: Decreased Breath Sounds, Rhonchi, Wheezing. No: Rales, Rub Cardiovascular: Regular Rate, Regular Rhythm, Normal S1, Normal S2, Systolic Murmur. No: Bradycardia, Tachycardia, Diastolic Murmur GI/Abdominal Exam: Soft, Non-Tender, No Organomegaly, No Distention, No Mass Back Exam: Normal Inspection, Decreased Range of Motion, Other (Surgical scar thoracic spine) Extremities: Non-Tender, No Pedal Edema Skin: Warm, Dry, Intact Neurological: Cranial Nerves Intact, Strength Equal Bilateral, Normal Speech, Normal Tone, Sensation Intact. No: Focal Deficit Neuro Extensive - Mental Status: Alert, Normal Mood/Affect. No: Normal Cognition - Patient Data Lab Results Last 24 hrs: Laboratory Results - last 24 hr 12/26/17 12/26/17 12/26/17 Range/Units 13:18 13:18 14:44 WBC 7.2 (4.5-11.0) K/uL RBC 5.07 (3.30-5.50) M/uL Hgb 13.7 (12.0-15.0) g/dL Hct 42.5 (36.0-48.0) % MCV 84 (80-98) fL MCH 27 (27-31) pg MCHC 32 (32-36) % Plt Count 159 (150-400) K/uL Neut % (Auto) 77 H (36-66) % Lymph % (Auto) 11 L (24-44) % [place] % (Auto) 11 H (2-6) % Eos % (Auto) 1 L (2-4) % Baso % (Auto) 0 (0-1) % Sodium 139 L (140-148) mmol/L Potassium 3.7 (3.6-5.2) mmol/L Chloride 98 L (100-108) mmol/L Carbon Dioxide 33 H (21-32) mmol/L Anion Gap 11.7 (5.0-14.0) mmol/L BUN 8 (7-18) mg/dL Creatinine 0.6 (0.6-1.0) mg/dL Est Cr Clr Drug Dosing 73.41 mL/min Estimated GFR (MDRD) > 60 (>60) Glucose 96 (74-106) mg/dL Calcium 8.3 L (8.5-10.1) mg/dL Urine Color Yellow Urine Appearance Clear Urine pH 7.0 (4.5-8.0) Ur Specific [place] 1.005 L (1.008-1.030) Urine Protein Negative (NEGATIVE) mg/dL Urine Glucose (UA) Normal (NEGATIVE) mg/dL Urine Ketones Negative (NEGATIVE) mg/dL Urine Occult Blood Negative (NEGATIVE) Urine Nitrite Negative (NEGATIVE) Urine Bilirubin Negative (NEGATIVE) Urine Urobilinogen Normal (NORMAL) mg/dL Ur Leukocyte Esterase Negative (NEGATIVE) Urine RBC Not seen (0-5) Urine WBC 0-5 (0-5) Ur Epithelial Cells Few Amorphous Sediment Not seen Urine Bacteria Not seen Urine Mucus Not seen Result Diagrams: 12/26/17 13:18 12/26/17 13:18 *Q Meaningful Use (ADM) - VTE Risk Assess *Q Each Risk Factor Represents 1 Point: Age 41 - 59 years, Obesity ( BMI > 25 kg/m2 ), Abnormal Pulmonary Function (COPD) Total Score 1 Point Risk Factors: 3 Each Risk Factor Represents 2 Points: None Total Score 2 Point Risk Factors: 0 Each Risk Factor Represents 3 Points: None Total Score 3 Point Risk Factors: 0 Each Risk Factor Represents 5 Points: None Total Score 5 Point Risk Factors: 0 Venous Thromboembolism Risk Factor Score *Q: 3 Problem List Initiated/Reviewed/Updated: Yes Orders Last 24hrs: Active Orders 24 hr Category Date Time Status Patient Status Manage Transfer [TRANSFER] Routine ADT 12/26/17 15:03 Ordered RT Aerosol Therapy [RC] ASDIRECTED Care 12/26/17 13:09 Active Chest 2V [CR] Routine Exams 12/26/17 13:09 Taken UA W/MICROSCOPIC [URIN] Stat Lab 12/26/17 14:44 Ordered Resuscitation Status Routine Resus Stat 12/26/17 15:07 Ordered Assessment/Plan Comment:: ASSESSMENT AND PLAN COPD EXACERBATION SECONDARY TO BRONCHITIS-she is not oxygen dependent at baseline, has had previous history of exacerbations and shortness of breath. Also has a history of underlying environmental allergies likely causing a portion of her current exacerbation. Chest x-ray shows no evidence of infiltrate and her white blood cell count is within normal range. -Sputum culture pending -Nebulized albuterol and duo nebs -IV levofloxacin -Solu-Medrol 40 mg IV every 6 hours -Supplemental oxygen as needed HYPOXIA-secondary to COPD exacerbation and bronchitis -Management as above TETRALOGY OF FALLOT-stable with no evidence of pulmonary edema or CHF exacerbation -Continue outpatient medical regimen MAINTENANCE ISSUES -DVT prophylaxis; Lovenox 40 mg subcutaneous daily -GI prophylaxis; not indicated -Sharma catheter; not indicated -Nutrition; 2 g sodium diet -Nicotine dependence; not required CODE STATUS-FULL CODE ADMISSION STATUS-patient will be admitted to inpatient status, expect at least a 2 night hospital stay for evaluation and management of problems as outlined above. At the time of this admission I do not reasonably expected evaluation and management of this problem will require more than a 96 hour hospital stay. DISPOSITION-anticipate discharge to home after the hospital stay. PRIMARY CARE PROVIDER-Dr. Fernandez
[2017-12-26] MEDS ORDERED: Magnesium Hydroxide 400 MG/5 ML Susp 30 ML Cup PO PRN (15:23)
[2017-12-26] MEDS ORDERED: Albuterol 0.083% 2.5 MG/3 ML Neb Soln INH PRN (15:23)
[2017-12-26] MEDS ORDERED: Sodium Chloride 0.9% 10 ML Syringe FLUSH PRN (15:23)
[2017-12-26] MEDS ORDERED: Albuterol 8 GM Inhaler INH PRN (15:23)
[2017-12-26] MEDS ORDERED: Polyethylene Glycol 3350 Powder 17 GM Packet PO PRN (15:23)
[2017-12-26] MEDS ORDERED: Ondansetron 4 MG/2 ML SDV IV PRN (15:23)
[2017-12-26] MEDS: methylPREDNISolone Sodium Succinate 40 MG/1 ML SDV IVPUSH SCH ×2 (16:43→21:04)
[2017-12-26] MEDS: Levofloxacin/Dextrose 5%-Water 500 MG in Premix Bag 1 BAG IV SCH (16:43)
[2017-12-26] MEDS: traMADol 50 MG Tab PO SCH ×2 (16:44→21:04)
[2017-12-26] MEDS: ALPRAZolam 0.5 MG Tab PO SCH ×2 (16:50→21:04)
[2017-12-26] MEDS: Albuterol/Ipratropium 3.0-0.5 MG/3 ML Neb Soln NEB SCH ×2 (16:51→20:46)
[2017-12-26] MEDS: Sodium Chloride 0.9% 1,000 ML IV SCH (17:00)
[2017-12-26] MEDS: Enoxaparin 40 MG/0.4 ML Syringe SUBCUT SCH (17:00)
[2017-12-26] MEDS: Acetaminophen 325 MG Tab PO PRN (20:15)
[2017-12-26] MEDS: Budesonide 0.5 MG/2 ML Neb Susp INH SCH (20:46)
[2017-12-26] MEDS: Codeine/guaiFENesin 100mg-10 MG/5 ML Syrup 10 ML Cup PO PRN (21:00)
[2017-12-27] MEDS: Acetaminophen 325 MG Tab PO PRN ×3 (00:36→23:15)
[2017-12-27] MEDS: methylPREDNISolone Sodium Succinate 40 MG/1 ML SDV IVPUSH SCH ×4 (03:46→21:04)
[2017-12-27] MEDS: Sodium Chloride 0.9% 1,000 ML IV SCH (05:03)
[2017-12-27] MEDS: traMADol 50 MG Tab PO SCH ×4 (05:03→21:08)
[2017-12-27] MEDS: ALPRAZolam 0.5 MG Tab PO SCH ×4 (05:04→21:09)
[2017-12-27] MEDS: Budesonide 0.5 MG/2 ML Neb Susp INH SCH ×2 (07:28→21:03)
[2017-12-27] MEDS: Albuterol/Ipratropium 3.0-0.5 MG/3 ML Neb Soln NEB SCH ×4 (07:28→21:03)
[2017-12-27] MEDS: Furosemide 40 MG Tab PO SCH (08:54)
[2017-12-27] MEDS: Fluticasone Propionate Nasal Spray 16 GM Bottle NAS SCH (08:54)
[2017-12-27] MEDS: Loratadine 10 MG Tab PO SCH (08:54)
[2017-12-27] MEDS: Citalopram 20 MG Tab PO SCH (08:54)
[2017-12-27] MEDS: Hydrochlorothiazide/Triamterene 25-37.5 Tab PO SCH (08:55)
[2017-12-27] MEDS: Montelukast 10 MG Tab PO SCH (08:55)
--- NOTE | 2017-12-27 09:57 | CR ---
Cardiomegaly stable. Prominence the right paratracheal stripe similar. Emphysematous change. Pulmonar y vasculature is mildly engorged. No focal consolidation.
--- NOTE | 2017-12-27 12:10 | PCM.PN ---
- General Info Date of Service: 12/27/17 Subjective Update: Ms. Marti has experienced modest improvement in symptoms of shortness of breath and cough since admission. Continues to require relatively high level of supplemental oxygen to maintain adequate saturations. Vital signs have been stable and she has remained afebrile. - Review of Systems General: Denies: Fever, Weakness, Chills Pulmonary: Reports: Shortness of Breath, Cough, Sputum, Wheezing. Denies: Pleuritic Chest Pain, Hemoptysis Cardiovascular: Reports: Dyspnea on Exertion. Denies: Chest Pain, Palpitations , Orthopnea, PND, Edema, Lightheadedness Gastrointestinal: Reports: No Symptoms - Patient Data Vitals - Most Recent: Last Vital Signs Temp 98.1 F 12/27/17 11:44 Pulse 74 12/27/17 11:44 Resp 16 12/27/17 11:44 BP 91/71 12/27/17 11:44 Pulse Ox 91 L 12/27/17 11:44 Weight - Most Recent: 184 lb 8 oz I&O - Last 24 Hours: Intake & Output 12/26/17 12/27/17 12/27/17 22:59 06:59 14:59 Intake Total 1834 250 Output Total 200 2250 700 Balance -200 -416 -450 Lab Results Last 24 Hours: Laboratory Results - last 24 hr 12/26/17 12/26/17 12/26/17 Range/Units 13:18 13:18 14:44 WBC 7.2 (4.5-11.0) K/uL RBC 5.07 (3.30-5.50) M/uL Hgb 13.7 (12.0-15.0) g/dL Hct 42.5 (36.0-48.0) % MCV 84 (80-98) fL MCH 27 (27-31) pg MCHC 32 (32-36) % Plt Count 159 (150-400) K/uL Neut % (Auto) 77 H (36-66) % Lymph % (Auto) 11 L (24-44) % Hamilton % (Auto) 11 H (2-6) % Eos % (Auto) 1 L (2-4) % Baso % (Auto) 0 (0-1) % Sodium 139 L (140-148) mmol/L Potassium 3.7 (3.6-5.2) mmol/L Chloride 98 L (100-108) mmol/L Carbon Dioxide 33 H (21-32) mmol/L Anion Gap 11.7 (5.0-14.0) mmol/L BUN 8 (7-18) mg/dL Creatinine 0.6 (0.6-1.0) mg/dL Est Cr Clr Drug Dosing 73.41 mL/min Estimated GFR (MDRD) > 60 (>60) Glucose 96 (74-106) mg/dL Calcium 8.3 L (8.5-10.1) mg/dL Magnesium (1.8-2.4) mg/dL Urine Color Yellow Urine Appearance Clear Urine pH 7.0 (4.5-8.0) Ur Specific Sikes 1.005 L (1.008-1.030) Urine Protein Negative (NEGATIVE) mg/dL Urine Glucose (UA) Normal (NEGATIVE) mg/dL Urine Ketones Negative (NEGATIVE) mg/dL Urine Occult Blood Negative (NEGATIVE) Urine Nitrite Negative (NEGATIVE) Urine Bilirubin Negative (NEGATIVE) Urine Urobilinogen Normal (NORMAL) mg/dL Ur Leukocyte Esterase Negative (NEGATIVE) Urine RBC Not seen (0-5) Urine WBC 0-5 (0-5) Ur Epithelial Cells Few Amorphous Sediment Not seen Urine Bacteria Not seen Urine Mucus Not seen 12/27/17 12/27/17 Range/Units 04:39 04:39 WBC 5.9 (4.5-11.0) K/uL RBC 4.65 (3.30-5.50) M/uL Hgb 12.4 (12.0-15.0) g/dL Hct 39.0 (36.0-48.0) % MCV 84 (80-98) fL MCH 27 (27-31) pg MCHC 32 (32-36) % Plt Count 134 L (150-400) K/uL Neut % (Auto) 92 H (36-66) % Lymph % (Auto) 7 L (24-44) % Hamilton % (Auto) 1 L (2-6) % Eos % (Auto) 0 L (2-4) % Baso % (Auto) 0 (0-1) % Sodium 138 L (140-148) mmol/L Potassium 3.8 (3.6-5.2) mmol/L Chloride 100 (100-108) mmol/L Carbon Dioxide 30 (21-32) mmol/L Anion Gap 11.8 (5.0-14.0) mmol/L BUN 7 (7-18) mg/dL Creatinine 0.6 (0.6-1.0) mg/dL Est Cr Clr Drug Dosing 73.41 mL/min Estimated GFR (MDRD) > 60 (>60) Glucose 179 H (74-106) mg/dL Calcium 7.9 L (8.5-10.1) mg/dL Magnesium 1.9 (1.8-2.4) mg/dL Urine Color Urine Appearance Urine pH (4.5-8.0) Ur Specific Sikes (1.008-1.030) Urine Protein (NEGATIVE) mg/dL Urine Glucose (UA) (NEGATIVE) mg/dL Urine Ketones (NEGATIVE) mg/dL Urine Occult Blood (NEGATIVE) Urine Nitrite (NEGATIVE) Urine Bilirubin (NEGATIVE) Urine Urobilinogen (NORMAL) mg/dL Ur Leukocyte Esterase (NEGATIVE) Urine RBC (0-5) Urine WBC (0-5) Ur Epithelial Cells Amorphous Sediment Urine Bacteria Urine Mucus Micheal Results Last 24 Hours: Microbiology 12/26/17 16:14 Gram Stain - Final Sputum - Expectorated Med Orders - Current: Current Medications Acetaminophen (Tylenol) 650 mg PO Q4H PRN PRN Reason: Pain (Mild 1-3)/fever Last Admin: 12/27/17 00:36 Dose: 650 mg Albuterol (Proventil Neb Soln) 2.5 mg INH Q4H PRN PRN Reason: Shortness of Breath Albuterol (Ventolin Hfa) 0 gm INH Q4H PRN PRN Reason: Shortness of Breath Albuterol/Ipratropium (Duoneb 3.0-0.5 Mg/3 Ml) 3 ml NEB QIDRT [facility] Last Admin: 12/27/17 11:07 Dose: 3 ml Alprazolam (Xanax) 1 mg PO QID [facility] Last Admin: 12/27/17 09:06 Dose: 1 mg Budesonide (Pulmicort) 0.5 mg INH BIDRT [facility] Last Admin: 12/27/17 07:28 Dose: 0.5 mg Citalopram Hydrobromide (Celexa) 40 mg PO DAILY [facility] Last Admin: 12/27/17 08:54 Dose: 40 mg Enoxaparin Sodium (Lovenox) 40 mg SUBCUT Q24H [facility] Last Admin: 12/26/17 17:00 Dose: 40 mg Fluticasone Propionate (Flonase) 0 gm KANDI DAILY [facility] Last Admin: 12/27/17 08:54 Dose: 2 spray Furosemide (Lasix) 40 mg PO DAILY [facility] Last Admin: 12/27/17 08:54 Dose: 40 mg Guaifenesin/Codeine Phosphate (Robitussin Ac) 5 - 10 ml PO Q4H PRN PRN Reason: Cough Last Admin: 12/26/17 21:00 Dose: 10 ml Levofloxacin/Dextrose 500 mg/ (Premix) 100 mls @ 100 mls/hr IV Q24H [facility] Last Admin: 12/26/17 16:43 Dose: 100 mls/hr Loratadine (Claritin) 10 mg PO DAILY [facility] Last Admin: 12/27/17 08:54 Dose: 10 mg Magnesium Hydroxide (Milk Of Magnesia) 30 ml PO Q12H PRN PRN Reason: Constipation Methylprednisolone Sodium Succinate (Solu-Medrol) 40 mg IVPUSH Q6H [facility] Last Admin: 12/27/17 09:06 Dose: 40 mg Montelukast Sodium (Singulair) 10 mg PO DAILY [facility] Last Admin: 12/27/17 08:55 Dose: 10 mg Ondansetron HCl (Zofran) 4 mg IV Q4H PRN PRN Reason: Nausea/Vomiting Polyethylene Glycol (Miralax) 17 gm PO DAILY PRN PRN Reason: Constipation Senna/Docusate Sodium (Senna Plus) 1 tab PO BID PRN PRN Reason: Constipation Sodium Chloride (Saline Flush) 10 ml FLUSH ASDIRECTED PRN PRN Reason: Keep Vein Open Tramadol HCl (Ultram) 50 mg PO QID [facility] Last Admin: 12/27/17 09:06 Dose: 50 mg Triamterene/HCTZ (Maxzide 25-37.5 Mg) 1 each PO DAILY [facility] Last Admin: 12/27/17 08:55 Dose: 1 each Discontinued Medications Albuterol/Ipratropium (Duoneb 3.0-0.5 Mg/3 Ml) 3 ml NEB ONETIME ONE Stop: 12/26/17 13:10 Last Admin: 12/26/17 13:37 Dose: 3 ml Sodium Chloride (Normal Saline) 1,000 mls @ 75 mls/hr IV ASDIRECTED [facility] Last Admin: 12/27/17 05:03 Dose: 75 mls/hr - Exam Quality Assessment: DVT Prophylaxis General: Alert, Oriented, Cooperative, Mild Distress Lungs: Decreased Breath Sounds, Rhonchi, Wheezing. No: Rales, Rub Cardiovascular: Regular Rate, Regular Rhythm, Murmurs GI/Abdominal Exam: Soft, Non-Tender, No Organomegaly, No Distention Extremities: Non-Tender, No Pedal Edema Skin: Warm, Dry, Intact - Problem List Review Problem List Initiated/Reviewed/Updated: Yes - My Orders Last 24 Hours: My Active Orders 12/26/17 15:07 Resuscitation Status Routine 12/26/17 15:23 Patient Status [ADT] Routine Ambulate [RC] QID Height and Weight [RC] DAILY Intake and Output [RC] QSHIFT Notify Provider Vital Signs [RC] ASDIRECTED Oxygen Therapy [RC] PRN Peripheral IV Care [RC] . DIRECTED Pulse Oximetry [RC] CONTINUOUS RT Aerosol Therapy [RC] ASDIRECTED Up With Assistance [RC] ASDIRECTED Up to Chair [RC] QID VTE/DVT Education [RC] Per Unit Routine Vital Signs [RC] Q4H Acetaminophen [Tylenol] 650 mg PO Q4H PRN Albuterol [Proventil Neb Soln] 2.5 mg INH Q4H PRN Albuterol [Ventolin HFA] 0 gm INH Q4H PRN Codeine/guaiFENesin [Robitussin AC] 5 - 10 ml PO Q4H PRN Docusate Sodium/Sennosides [Senna Plus] 1 tab PO BID PRN Magnesium Hydroxide [Milk of Magnesia] 30 ml PO Q12H PRN Ondansetron [Zofran] 4 mg IV Q4H PRN Polyethylene Glycol 3350 [MiraLAX] 17 gm PO DAILY PRN Sodium Chloride 0.9% [Saline Flush] 10 ml FLUSH ASDIRECTED PRN Peripheral IV Insertion Adult [OM.PC] Routine 12/26/17 16:00 ALPRAZolam [Xanax] 1 mg PO QID Albuterol/Ipratropium [DuoNeb 3.0-0.5 MG/3 ML] 3 ml NEB QIDRT Levofloxacin/Dextrose 5%-Water [Levaquin in D5W 500 MG/100 ML] 500 mg Premix Bag 1 bag IV Q24H methylPREDNISolone Sod Succ [Solu-MEDROL] 40 mg IVPUSH Q6H traMADol [Ultram] 50 mg PO QID 12/26/17 16:14 CULTURE RESPIRATORY + SMEAR [RM] Stat 12/26/17 18:00 Enoxaparin [Lovenox] 40 mg SUBCUT Q24H 12/26/17 21:00 Budesonide [Pulmicort] 0.5 mg INH BIDRT 12/26/17 Lunch 2 Gram Sodium Diet [DIET] 12/27/17 09:00 Citalopram [Celexa] 40 mg PO DAILY Fluticasone Propionate [Flonase] 0 gm KANDI DAILY Furosemide [Lasix] 40 mg PO DAILY HCTZ/Triamterene [Maxzide 25-37.5 MG] 1 each PO DAILY Loratadine [Claritin] 10 mg PO DAILY Montelukast [Singulair] 10 mg PO DAILY 12/27/17 12:06 Convert IV to Saline Lock [OM.PC] Routine - Plan Plan:: ASSESSMENT AND PLAN COPD EXACERBATION SECONDARY TO BRONCHITIS-modest improvement in symptoms since admission, continues to require relatively high level of supplemental oxygen -Sputum culture pending -Nebulized albuterol and duo nebs -IV levofloxacin -Solu-Medrol 40 mg IV every 6 hours -Supplemental oxygen as needed -Saline lock IV HYPOXIA-secondary to COPD exacerbation and bronchitis -Management as above TETRALOGY OF FALLOT-stable with no evidence of pulmonary edema or CHF exacerbation -Continue outpatient medical regimen MAINTENANCE ISSUES -DVT prophylaxis; Lovenox 40 mg subcutaneous daily -GI prophylaxis; not indicated -Sharma catheter; not indicated -Nutrition; 2 g sodium diet -Nicotine dependence; not required CODE STATUS-FULL CODE ADMISSION STATUS-patient will be admitted to inpatient status, expect at least a 2 night hospital stay for evaluation and management of problems as outlined above. At the time of this admission I do not reasonably expected evaluation and management of this problem will require more than a 96 hour hospital stay. DISPOSITION-anticipate discharge to home after the hospital stay. PRIMARY CARE PROVIDER-Dr. Fernandez
[2017-12-27] MEDS: Nystatin Topical Powder 15 GM Bottle TOP SCH ×2 (15:17→21:03)
[2017-12-27] MEDS: Levofloxacin/Dextrose 5%-Water 500 MG in Premix Bag 1 BAG IV SCH (15:17)
[2017-12-27] MEDS: Enoxaparin 40 MG/0.4 ML Syringe SUBCUT SCH (17:00)
[2017-12-28] MEDS: Codeine/guaiFENesin 100mg-10 MG/5 ML Syrup 10 ML Cup PO PRN ×2 (02:02→07:47)
[2017-12-28] MEDS: methylPREDNISolone Sodium Succinate 40 MG/1 ML SDV IVPUSH SCH ×2 (03:03→10:50)
[2017-12-28] MEDS: traMADol 50 MG Tab PO SCH ×2 (06:08→10:46)
[2017-12-28] MEDS: ALPRAZolam 0.5 MG Tab PO SCH ×2 (06:08→10:46)
[2017-12-28] MEDS: Albuterol/Ipratropium 3.0-0.5 MG/3 ML Neb Soln NEB SCH ×2 (07:17→10:54)
[2017-12-28] MEDS: Budesonide 0.5 MG/2 ML Neb Susp INH SCH (07:18)
[2017-12-28 07:54] VITALS: BP 124/70
[2017-12-28] MEDS: Citalopram 20 MG Tab PO SCH (08:53)
[2017-12-28] MEDS: Fluticasone Propionate Nasal Spray 16 GM Bottle NAS SCH (08:53)
[2017-12-28] MEDS: Loratadine 10 MG Tab PO SCH (08:53)
[2017-12-28] MEDS: Hydrochlorothiazide/Triamterene 25-37.5 Tab PO SCH (08:53)
[2017-12-28] MEDS: Furosemide 40 MG Tab PO SCH (08:53)
[2017-12-28] MEDS: Nystatin Topical Powder 15 GM Bottle TOP SCH (08:54)
[2017-12-28] MEDS: Montelukast 10 MG Tab PO SCH (08:54)
--- NOTE | 2017-12-28 11:51 | PCM.DCSUM1 ---
Discharge Summary - Hospital Course Brief History: Ms. Marti is a 57-year-old woman who was admitted through the emergency department with hypoxia, secondary to COPD exacerbation and underlying bronchitis. - Discharge Data Discharge Date: 12/28/17 Discharge Disposition: DC/Tfer to SNF 03 Condition: Fair - Discharge Diagnosis/Problem(s) (1) COPD with acute exacerbation SNOMED Code(s): 656388389 ICD Code: J44.1 - CHRONIC OBSTRUCTIVE PULMONARY DISEASE W (ACUTE) EXACERBATION Status: Acute Current Visit: Yes (2) Bronchitis SNOMED Code(s): 98391018 ICD Code: J40 - BRONCHITIS, NOT SPECIFIED ACUTE OR CHRONIC Status: Acute Current Visit: Yes (3) Hypoxia SNOMED Code(s): 356850070 ICD Code: R09.02 - HYPOXEMIA Status: Acute Current Visit: Yes - Patient Summary/Data Hospital Course: Ms. Marti 57-year-old woman who was admitted through the emergency department with shortness of breath and hypoxia secondary to COPD exacerbation with bronchitis. She has a known history of COPD, over the past few weeks she has become progressively more short of breath with associated cough. Over the past few weeks she has had difficulty with environmental allergies. Symptoms have been worse over the past few days and her sputum has become yellow in color. This [facility] found her to be hypoxic, when she did not respond to nebulizer therapy, she was brought into the emergency department by ambulance. When she first arrived here was found to be hypoxic, oxygen saturation has improved with supplemental oxygen. She has receiving nebulizer therapy which seems to help modestly. White blood cell count is normal and chest x-ray shows no evidence of acute infiltrate. She was initially given IV fluids for hydration, IV antibiotic therapy with Rocephin, IV Solu-Medrol, and nebulizer therapy. Over the next few days of hospitalization she improved significantly and by the time of discharge was off of supplemental oxygen with adequate saturations on room air. She will be [facility] to [facility] oxygen at night and while sleeping as well as as needed during the day. She will complete a course of oral antibiotic therapy over the next 3 days and will be on prednisone 40 mg daily for the next 4 days. Activity will be as tolerated and she will resume her usual diet. - Patient Instructions Diet: Low Sodium Activity: As Tolerated Other/Special Instructions: Oxygen 2 L/m via nasal cannula at night and while sleeping, and as needed during the day. - Discharge Plan Prescriptions/Med Rec: Levofloxacin [Levaquin] 500 mg PO DAILY #3 tab predniSONE [Prednisone] 40 mg PO DAILY #8 tablet Home Medications: Home Meds ALPRAZolam [Alprazolam] 1 mg PO TID 03/19/14 [History] Albuterol [Proventil Neb Soln] 1 ampule IH Q4H PRN 03/19/14 [History] Budesonide [Pulmicort] 0.5 mg IH BID 03/19/14 [History] Citalopram Hydrobromide [Citalopram HBr] 40 mg PO DAILY 03/19/14 [History] Fluticasone Propionate [Flonase] 1 spray KANDI BID 03/19/14 [History] Loratadine [Claritin] 10 mg PO DAILY 03/19/14 [History] Montelukast [Singulair] 10 mg PO DAILY 03/19/14 [History] Multivitamin [Multiple Vitamins] 1 tab PO DAILY 03/19/14 [History] Pseudoephedrine HCl [Nexafed] 30 mg PO Q6H PRN 03/19/14 [History] Ferrous Sulfate 325 mg PO DAILY 12/31/14 [History] Albuterol [Ventolin HFA] 2 puff INH Q4H PRN 05/26/17 [History] Nystatin 1 appful TOP BID 05/26/17 [History] guaiFENesin [Robafen] 10 ml PO Q4H PRN 05/26/17 [History] Acetaminophen [Acetaminophen ER] 500 mg PO QID 12/26/17 [History] Dextran 70/Hypromellose/PF [Artificial Tears Drops] 1 each OP Q4H PRN 12/26/17 [ History] Nystatin 1 each TOP ASDIRECTED PRN 12/26/17 [History] Sennosides/Docusate Sodium [Senna Plus Tablet] 2 tab PO Q12HR PRN 12/26/17 [ History] Triamterene/Hydrochlorothiazid [Triamterene-HCTZ 37.5-25 MG] 1 each PO DAILY [History] traMADol HCl [Tramadol HCl] 50 mg PO QID PRN 12/26/17 [History] Levofloxacin [Levaquin] 500 mg PO DAILY #3 tab 12/28/17 [Rx] predniSONE [Prednisone] 40 mg PO DAILY #8 tablet 12/28/17 [Rx] Referrals: Christian Fernandez MD [Primary Care Provider] - - Discharge Summary/Plan Comment DC Time >30 min.: No - Patient Data Vitals - Most Recent: Last Vital Signs Temp 95.9 F 12/28/17 07:51 Pulse 81 12/28/17 10:54 Resp 16 12/28/17 07:51 BP 124/70 12/28/17 07:51 Pulse Ox 90 L 12/28/17 10:54 Weight - Most Recent: 186 lb I&O - Last 24 hours: Intake & Output 12/27/17 12/28/17 12/28/17 22:59 06:59 14:59 Intake Total 1097 740 Output Total 500 1550 1400 Balance 597 -810 -1400 JIA Results - Last 24 hrs: Microbiology 12/26/17 16:14 Gram Stain - Final Sputum - Expectorated Respiratory Culture - Preliminary NORMAL RESPIRATORY TK 1 DAY Med Orders - Current: Current Medications Acetaminophen (Tylenol) 650 mg PO Q4H PRN PRN Reason: Pain (Mild 1-3)/fever Last Admin: 12/27/17 23:15 Dose: 650 mg Albuterol (Proventil Neb Soln) 2.5 mg INH Q4H PRN PRN Reason: Shortness of Breath Albuterol (Ventolin Hfa) 0 gm INH Q4H PRN PRN Reason: Shortness of Breath Albuterol/Ipratropium (Duoneb 3.0-0.5 Mg/3 Ml) 3 ml NEB QIDRT [facility] Last Admin: 12/28/17 10:54 Dose: 3 ml Alprazolam (Xanax) 1 mg PO QID [facility] Last Admin: 12/28/17 10:46 Dose: 1 mg Budesonide (Pulmicort) 0.5 mg INH BIDRT [facility] Last Admin: 12/28/17 07:18 Dose: 0.5 mg Citalopram Hydrobromide (Celexa) 40 mg PO DAILY [facility] Last Admin: 12/28/17 08:53 Dose: 40 mg Enoxaparin Sodium (Lovenox) 40 mg SUBCUT Q24H [facility] Last Admin: 12/27/17 17:00 Dose: 40 mg Fluticasone Propionate (Flonase) 0 gm KANDI DAILY [facility] Last Admin: 12/28/17 08:53 Dose: 2 spray Furosemide (Lasix) 40 mg PO DAILY [facility] Last Admin: 12/28/17 08:53 Dose: 40 mg Guaifenesin/Codeine Phosphate (Robitussin Ac) 5 - 10 ml PO Q4H PRN PRN Reason: Cough Last Admin: 12/28/17 07:47 Dose: 10 ml Levofloxacin/Dextrose 500 mg/ (Premix) 100 mls @ 100 mls/hr IV Q24H [facility] Last Admin: 12/27/17 15:17 Dose: 100 mls/hr Loratadine (Claritin) 10 mg PO DAILY [facility] Last Admin: 12/28/17 08:53 Dose: 10 mg Magnesium Hydroxide (Milk Of Magnesia) 30 ml PO Q12H PRN PRN Reason: Constipation Methylprednisolone Sodium Succinate (Solu-Medrol) 40 mg IVPUSH Q6H [facility] Last Admin: 12/28/17 10:50 Dose: 40 mg Montelukast Sodium (Singulair) 10 mg PO DAILY [facility] Last Admin: 12/28/17 08:54 Dose: 10 mg Nystatin (Nystop) 0 gm TOP TID [facility] Last Admin: 12/28/17 08:54 Dose: 1 applic Ondansetron HCl (Zofran) 4 mg IV Q4H PRN PRN Reason: Nausea/Vomiting Polyethylene Glycol (Miralax) 17 gm PO DAILY PRN PRN Reason: Constipation Senna/Docusate Sodium (Senna Plus) 1 tab PO BID PRN PRN Reason: Constipation Sodium Chloride (Saline Flush) 10 ml FLUSH ASDIRECTED PRN PRN Reason: Keep Vein Open Tramadol HCl (Ultram) 50 mg PO QID [facility] Last Admin: 12/28/17 10:46 Dose: 50 mg Triamterene/HCTZ (Maxzide 25-37.5 Mg) 1 each PO DAILY [facility] Last Admin: 12/28/17 08:53 Dose: 1 each Discontinued Medications Albuterol/Ipratropium (Duoneb 3.0-0.5 Mg/3 Ml) 3 ml NEB ONETIME ONE Stop: 12/26/17 13:10 Last Admin: 12/26/17 13:37 Dose: 3 ml Sodium Chloride (Normal Saline) 1,000 mls @ 75 mls/hr IV ASDIRECTED [facility] Last Admin: 12/27/17 05:03 Dose: 75 mls/hr - Exam Quality Assessment: Reports: Supplemental Oxygen General: Reports: Alert, Cooperative, No Acute Distress Lungs: Reports: Clear to Auscultation, Normal Respiratory Effort, Decreased Breath Sounds Cardiovascular: Reports: Regular Rate, Regular Rhythm, Murmurs GI/Abdominal Exam: Soft, Non-Tender, No Organomegaly, No Distention Extremities: Non-Tender, No Pedal Edema Skin: Reports: Warm, Dry, Intact
== END 2017-12-28 13:30 | DRG 190 ==
LOC: JP.ED 12:15 → JP.MS 15:03
PROVIDERS: ADMIT Hospitalist; ATTEND Hospitalist
DX: J44.0 Chronic obstructive pulmonary disease with (acute) lower respiratory infection (principal); Q21.3 Tetralogy of Fallot; J20.9 Acute bronchitis, unspecified; J44.1 Chronic obstructive pulmonary disease with (acute) exacerbation; I10 Essential (primary) hypertension; R09.02 Hypoxemia; Z99.81 Dependence on supplemental oxygen; R06.02 Shortness of breath; R05 Cough; F41.9 Anxiety disorder, unspecified; H91.90 Unspecified hearing loss, unspecified ear; F81.9 Developmental disorder of scholastic skills, unspecified; F60.9 Personality disorder, unspecified; Z88.6 Allergy status to analgesic agent; Z88.1 Allergy status to other antibiotic agents; Z88.0 Allergy status to penicillin; Z88.2 Allergy status to sulfonamides; Z91.09 Other allergy status, other than to drugs and biological substances
CPT/HCPCS: 36415; 71046 ×2; 80048; 81001; 85025; 99285; J7620; 83735; 87070; 87205; 94640; 94762; A9270-GY; J1650; J1956; J2920; J7030

== ENCOUNTER 2019-01-07 07:42 | Emergency (ER) | payer MEDICARE, MEDICAID ==
[2019-01-07] MEDS ORDERED: Nitroglycerin 0.4 MG Tab.SL SL PRN (07:44)
[2019-01-07] MEDS ORDERED: methylPREDNISolone Sodium Succinate 125 MG/2 ML SDV IVPUSH ONE (07:51)
[2019-01-07] MEDS: Aspirin 81 MG Tab.Chew PO ONE ×3 (07:52→10:16)
--- NOTE | 2019-01-07 08:15 | CRLCR ---
INDICATION: chest pain HISTORY: Chest pain. COMPARISON: 12/26/2017. TECHNIQUE: Chest one-view portable upright. FINDINGS: There is a vague airspace opacity adjacent to the right pulmonary hilum, which is new from previous. This could represent pneumonia. This measures 2.4 cm in craniocaudad dimension. Radiographic followup is advised to document resolution. Cardiomegaly is stable. Fusion elissa in the thoracolumbar spine, with S shaped scoliotic curvature. Paucity of abdominal bowel gas. No pneumothorax. IMPRESSION: 1. Airspace opacity adjacent to the right pulmonary hilum, new from 12/26/2017. 2. Consider pneumonia. When clinically appropriate, follow-up PA and lateral chest radiographs are suggested. Dictated by Migue Fay MD @ 01/07/2019 8:13:41 AM Dictated by: Migue Fay MD @ 01/07/2019 08:13:47 (Electronically Signed)
[2019-01-07] MEDS ORDERED: Sodium Chloride 0.9% 90 ML IV SCH (08:45)
[2019-01-07] MEDS ORDERED: Iopamidol 755 Mg/ML 100 ML Bottle IV SCH (08:45)
--- NOTE | 2019-01-07 08:47 | EDM.PDOC ---
ED HPI GENERAL MEDICAL PROBLEM - General Chief Complaint: Cardiovascular Problem Stated Complaint: [facility] Time Seen by Provider: 01/07/19 07:45 Source of Information: Reports: Patient, EMS, Family - History of Present Illness INITIAL COMMENTS - FREE TEXT/NARRATIVE: 58 yo with hx of COPD (recent chronic O2 dependence), tetralogy of fallot, hypertension who presents from her [facility] with concerns of dyspnea. EMS was called to her home this morning. They found the patients tachypnic with increased WOB. Oxygen sats were noted to be in the low 80s. She was noted to be mildly hypertensive with SBPs in 160s. WOB improved with bipap, 40 mg of IV lasix were administered. Patient's ability to provide history somewhat limited by respiratory distress on bipap. She reports that symptoms started abruptly this AM. The is concerns of discomfort in her left arm. Family reports this is chronic. They report that she has been more dyspneic recently, generally improves with inhaler. Patients reports minimal cough. Non-productive. No hemoptysis. No LE edema or pain. No fevers. Treatments LADLE POURER: Reports: Breathing Treatments, EKG, IV/IO, Oxygen Left Upper Chest Pain Score (Numeric/FACES): 5 - Related Data Allergies Allergy/AdvReac Type Severity Reaction Status Date / Time aspirin Allergy Cannot Verified 01/07/19 08:03 Remember cefaclor [From Ceclor] Allergy Cannot Verified 01/07/19 08:03 Remember Penicillins Allergy Rash Verified 01/07/19 08:03 Sulfa (Sulfonamide Allergy Rash Verified 01/07/19 08:03 Antibiotics) Home Meds: Home Meds ALPRAZolam [Alprazolam] 1 mg PO TID 03/19/14 [History] Albuterol [Proventil Neb Soln] 1 ampule IH Q4H PRN 03/19/14 [History] Budesonide [Pulmicort] 0.5 mg IH BID 03/19/14 [History] Citalopram Hydrobromide [Citalopram HBr] 40 mg PO DAILY 03/19/14 [History] Fluticasone Propionate [Flonase] 1 spray KANDI BID 03/19/14 [History] Loratadine [Claritin] 10 mg PO DAILY 03/19/14 [History] Montelukast [Singulair] 10 mg PO DAILY 03/19/14 [History] Multivitamin [Multiple Vitamins] 1 tab PO DAILY 03/19/14 [History] Pseudoephedrine HCl [Nexafed] 30 mg PO Q6H PRN 03/19/14 [History] Albuterol [Ventolin HFA] 2 puff INH Q4H PRN 05/26/17 [History] Nystatin 1 appful TOP BID 05/26/17 [History] guaiFENesin [Robafen] 10 ml PO Q4H PRN 05/26/17 [History] Acetaminophen [Acetaminophen ER] 500 mg PO QID 12/26/17 [History] Nystatin 1 each TOP ASDIRECTED PRN 12/26/17 [History] Sennosides/Docusate Sodium [Senna Plus Tablet] 2 tab PO Q12HR PRN 12/26/17 [ History] Triamterene/Hydrochlorothiazid [Triamterene-HCTZ 37.5-25 MG] 1 each PO DAILY [History] traMADol HCl [Tramadol HCl] 50 mg PO QID PRN 12/26/17 [History] Ipratropium/Albuterol Sulfate [Iprat-Albut 0.5-3(2.5) MG/3 ML] 3 ml IH QID 01/07 [History] Mirtazapine [Remeron] 7.5 mg PO BEDTIME 01/07/19 [History] busPIRone [Buspar] 15 mg PO BID 01/07/19 [History] Past Medical History HEENT History: Reports: Cataract, Hard of Hearing Other HEENT History: Cataract on right. Cardiovascular History: Reports: Heart Murmur, Hypertension Other Cardiovascular History: open heart Respiratory History: Reports: Bronchitis, Recurrent, COPD Gastrointestinal History: Reports: GERD Genitourinary History: Reports: Renal Disease FUEL QUALITY TECH History: Reports: Musculoskeletal History: Reports: Arthritis Neurological History: Reports: Headaches, Chronic Psychiatric History: Reports: Anxiety, Developmental Delay, Learning Disability , Other (See Below) Other Psychiatric History: personality disorder Endocrine/Metabolic History: Reports: Obesity/BMI 30+ Hematologic History: Reports: Anemia, Blood Transfusion(s) - Infectious Disease History Infectious Disease History: Reports: Chicken Pox - Past Surgical History HEENT Surgical History: Reports: Cataract Surgery, Oral Surgery Cardiovascular Surgical History: Reports: Other (See Below) Other Cardiovascular Surgeries/Procedures: open heart surg when [age]. mitral valve insuficiency, tricuspid valve desease cardiomegaly GI Surgical History: Reports: Cholecystectomy, EGD, Hernia, Inguinal Female Surgical History: Reports: Breast Biopsy Neurological Surgical History: Reports: Scoliosis Other Musculoskeletal Surgeries/Procedures:: right knee three screws Social & Family History - Family History Family Medical History: Noncontributory - Tobacco Use Smoking Status *Q: Never Smoker - Caffeine Use Caffeine Use: Reports: Coffee Other Caffeine Use: 1-4 coffee's per/day. - Recreational Drug Use Recreational Drug Use: No ED ROS GENERAL - Review of Systems Review Of Systems: See Below Constitutional: Denies: Fever, Chills HEENT: Reports: No Symptoms Respiratory: Reports: Shortness of Breath. Denies: Wheezing, Hemoptysis Cardiovascular: Reports: Chest Pain Endocrine: Reports: No Symptoms GI/Abdominal: Denies: Abdominal Pain : Reports: No Symptoms Musculoskeletal: Reports: No Symptoms Skin: Reports: No Symptoms Neurological: Reports: No Symptoms Psychiatric: Reports: No Symptoms Hematologic/Lymphatic: Reports: No Symptoms Immunologic: Reports: No Symptoms ED EXAM, GENERAL - Physical Exam Exam: See Below Exam Limited By: No Limitations General Appearance: Alert, Moderate Distress Eye Exam: Bilateral Eye: EOMI Nose: Normal Inspection Throat/Mouth: Normal Inspection Head: Atraumatic, Normocephalic Neck: Supple Respiratory/Chest: Respiratory Distress, Rhonchi (diffuse), Accessory Muscle Use , Other (tachypnea). No: Wheezing Cardiovascular: No Edema, Tachycardia GI/Abdominal: Soft, Non-Tender Back Exam: Normal Inspection Extremities: Normal Inspection Neurological: Alert, Oriented Psychiatric: Normal Affect Skin Exam: Warm, Dry EKG INTERPRETATION EKG Date: 01/07/19 Rhythm: NSR QRS: RBBB QT: Prolonged EKG Interpretation Comments: Sinus tachycardia with RBBB. ST depression in V4. Prolonged QT. No prior tracing for comparison. Course - Vital Signs Last Recorded V/S: Last Vital Signs Temp 35.9 C 01/07/19 10:55 Pulse 105 H 01/07/19 10:55 Resp 21 H 01/07/19 10:55 BP 94/69 01/07/19 10:55 Pulse Ox 94 L 01/07/19 10:55 - Orders/Labs/Meds Orders: Active Orders 24 hr Category Date Time Status EKG Documentation Completion [RC] ASDIRECTED Care 01/07/19 07:43 Active Iopamidol [Isovue-370 (76%)] Med 01/07/19 08:45 Active 100 ml IV . DIRECTED Nitroglycerin [Nitrostat] Med 01/07/19 07:44 Active 0.4 mg SL Q5M PRN Sodium Chloride 0.9% [Normal Saline] 90 ml Med 01/07/19 08:45 Active IV ASDIRECTED EKG 12 Lead [EK] Routine Ther 01/07/19 07:43 Ordered Medication Orders Sodium Chloride (Normal Saline) 90 mls @ 4 mls/sec IV ASDIRECTED MACARIO Last Admin: 01/07/19 09:09 Dose: 4 mls/sec Iopamidol (Isovue-370 (76%)) 100 ml IV . DIRECTED [facility] Last Admin: 01/07/19 09:09 Dose: 100 ml Nitroglycerin (Nitrostat) 0.4 mg SL Q5M PRN PRN Reason: Chest Pain Last Admin: 01/07/19 07:52 Dose: 0.4 mg Labs: Laboratory Tests 01/07/19 01/07/19 01/07/19 Range/Units 07:54 07:54 09:52 WBC 25.9 H (4.5-11.0) K/uL RBC 5.01 (3.30-5.50) M/uL Hgb 13.3 (12.0-15.0) g/dL Hct 44.8 (36.0-48.0) % MCV 89 (80-98) fL MCH 27 (27-31) pg MCHC 30 L (32-36) % Plt Count 255 (150-400) K/uL Sodium 138 L (140-148) mmol/L Potassium 3.9 (3.6-5.2) mmol/L Chloride 99 L (100-108) mmol/L Carbon Dioxide 33 H (21-32) mmol/L Anion Gap 9.9 (5.0-14.0) mmol/L BUN 12 D (7-18) mg/dL Creatinine 0.8 (0.6-1.0) mg/dL Est Cr Clr Drug Dosing TNP Estimated GFR (MDRD) > 60 (>60) Glucose 144 H (74-106) mg/dL Calcium 8.4 L (8.5-10.1) mg/dL Total Bilirubin 0.3 D (0.2-1.0) mg/dL AST 35 (15-37) U/L ALT 31 (12-78) U/L Alkaline Phosphatase 132 H (46-116) U/L Troponin I 0.358 H* 1.198 H* (0.000-0.056) ng/mL NT-Pro-B Natriuret Pep 654 H (5-125) pg/mL Total Protein 6.6 (6.4-8.2) g/dL Albumin 3.0 L (3.4-5.0) g/dL Globulin 3.6 H (2.3-3.5) g/dL Albumin/Globulin Ratio 0.8 L (1.2-2.2) Meds: Medications Generic Name Dose Route Start Last Admin Trade Name Kirsten PRN Reason Stop Dose Admin Sodium Chloride 90 mls @ 4 mls/sec 01/07/19 08:45 01/07/19 09:09 Normal Saline IV 4 mls/sec ASDIRECTED MACARIO Administration Iopamidol 100 ml 01/07/19 08:45 01/07/19 09:09 Isovue-370 (76%) IV 100 ml . DIRECTED MACARIO Administration Nitroglycerin 0.4 mg 01/07/19 07:44 01/07/19 07:52 Nitrostat SL 0.4 mg Q5M PRN Administration Chest Pain Discontinued Medications Generic Name Dose Route Start Last Admin Trade Name Kirsten PRN Reason Stop Dose Admin Aspirin 324 mg 01/07/19 07:45 01/07/19 10:16 Aspirin PO 01/07/19 07:46 324 mg ONETIME ONE Administration Heparin Sodium (Porcine) 4,000 units 01/07/19 10:43 01/07/19 10:56 Heparin Sodium IVPUSH 01/07/19 10:44 4,000 units BOLUS ONE Administration Ceftriaxone Sodium 1 gm/ 50 mls @ 100 mls/hr 01/07/19 08:48 01/07/19 09:43 Sodium Chloride IV 01/07/19 09:17 100 mls/hr ONETIME ONE Administration Doxycycline Hyclate 100 mg/ 100 mls @ 100 mls/hr 01/07/19 08:48 01/07/19 10: 14 Sodium Chloride IV 01/07/19 09:47 100 mls/hr ONETIME ONE Administration Methylprednisolone Sodium Succinate 125 mg 01/07/19 07:51 01/07/19 08:08 Solu-Medrol IVPUSH 01/07/19 07:52 125 mg ONETIME ONE Administration - Re-Assessments/Exams Free Text/Narrative Re-Assessment/Exam: 58 yo with hx of COPD, chronic O2 dependence, tetralogy of fallot repair with diastolic CHF presents in respiratory distress. Tachycardic and tachypnic on arrival with significant WOB. BPs largely normalized by arrival. Diffuse rhonchi on pulmonary exam. Otherwise no obvious volume overload. Immediately treated with bipap support. CXR limited by showing likely volume overload, difficult to assess L base of lungs. EKG appears to be sinus tachycardia with RBBB, no prior. Treated by dose of steroids for COPD, antibiotics, lasix given prehospital, nitro given with minimal change in symptoms, ASA for possible ischemia. Her labs returned with elevated troponin in setting of normal renal function as well as leukocytosis. Given the chest discomfort, acute onset, tachycardia and hypoxia we are going to get a CT for PE to rule this out and look for occult infection. 01/07/19 08:55 Free Text/Narrative Re-Assessment/Exam: CT shows right lower lobe pneumonia. No PE. Patient remains quite hypoxic when taken off of BiPAP support. Antibiotics for CAP given. I suspect her troponin elevation is type II HI. I will check a delta. Given her complex cardiac history and troponin elevation believe she would benefit from urgent repeat echocardiogram and possible cardiology consultation. For this reason we are transferring her to a higher level care in [place]. 01/07/19 10:15 Free Text/Narrative Re-Assessment/Exam: Delta troponin returned quite elevated (0.3 -> 1) Heparin bolus given with plan for initiation of gtt at receiving facility as discussed with accepting MD 01/07/19 12:48 Departure - Departure Time of Disposition: 10:30 Disposition: DC/Tfer to Acute Hospital 02 Reason for Transfer *Q: Other (cardiology consultation) Clinical Impression: Acute and chronic respiratory failure with hypoxia, Elevated troponin Pneumonia Qualifiers: Pneumonia type: due to unspecified organism Laterality: right Lung location: lower lobe of lung Qualified Code(s): J18.1 - Lobar pneumonia, unspecified organism Referrals: PCP,None [Primary Care Provider] - Forms: ED Department Discharge Critical Care Note - Critical Care Note Total Time (mins): 34 Comments: 34 minutes of CC time spent stabilizing undifferentiated respiratory distress including administration of bipap, interpreting EKGs, assessing unstable vital signs, treating possible sepsis, IV heparin administration, and counseling patient/family. - My Orders Last 24 Hours: My Active Orders 01/07/19 07:43 EKG Documentation Completion [RC] ASDIRECTED EKG 12 Lead [EK] Routine 01/07/19 07:44 Nitroglycerin [Nitrostat] 0.4 mg SL Q5M PRN 01/07/19 08:45 Iopamidol [Isovue-370 (76%)] 100 ml IV . DIRECTED Sodium Chloride 0.9% [Normal Saline] 90 ml IV ASDIRECTED - Assessment/Plan Last 24 Hours: My Active Orders 01/07/19 07:43 EKG Documentation Completion [RC] ASDIRECTED EKG 12 Lead [EK] Routine 01/07/19 07:44 Nitroglycerin [Nitrostat] 0.4 mg SL Q5M PRN 01/07/19 08:45 Iopamidol [Isovue-370 (76%)] 100 ml IV . DIRECTED Sodium Chloride 0.9% [Normal Saline] 90 ml IV ASDIRECTED
[2019-01-07] MEDS ORDERED: Doxycycline 100 MG in Sodium Chloride 0.9% 100 ML IV ONE (08:48)
[2019-01-07] MEDS ORDERED: cefTRIAXone 1 GM in Sodium Chloride 0.9% 50 ML IV ONE (08:48)
--- NOTE | 2019-01-07 09:41 | CRLCT ---
HISTORY: Chest pain shortness of breath concern for PE. TECHNIQUE: Contrast-enhanced CT PE 100 mL Isovue-370 coronal and sagittal re-formatted images obtained. COMPARISON: No comparison studies are available. Findings: The heart is enlarged. There is adequate opacification of the pulmonary arteries. There is no filling defects in the pulmonary arteries. The ascending thoracic aorta is ectatic measuring 3.9 cm. Descending thoracic aorta measures 3.7 cm. 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 No pericardial effusion. Prominent mediastinal hilar lymph nodes. There is a there is no central endobronchial lesion. There is right perihilar and right lower lobe consolidation. Patchy posterior left lower lobe consolidation. There are diffuse bilateral centrilobular opacities. Bilateral small pleural effusions. No axillary adenopathy. Upper abdominal collateral vessels. Moderate hiatal hernia. Thoracolumbar scoliosis with spinal stabilization rods. Impression: 1. No pulmonary emboli. 2. Right sided aortic arch. Ascending thoracic aorta is ectatic measuring 3.9 cm descending thoracic aorta measures 3.7 cm. 3. Findings most suggestive of multilobar bronchopneumonia with right perihilar and right lower lobe consolidation. Patchy left lower lobe consolidation with diffuse ill-defined centrilobular opacities. Small effusions. Follow-up is suggested when clinically appropriate. Please note that all CT scans at this facility use dose modulation, iterative reconstruction, and/or weight-based dosing when appropriate to reduce radiation dose to as low as reasonably achievable. Dictated by Anna Cutler MD @ Jan 07 2019 9:20AM Signed by Dr. Anna Cutler @ Jan 07 2019 9:40AM
[2019-01-07] MEDS ORDERED: Heparin Sodium 5,000 Units/ML Vial IVPUSH ONE (10:43)
[2019-01-07 13:16] VITALS: BP 107/78
== END 2019-01-07 12:20 ==
LOC: JP.ED 07:42
DX: J96.21 Acute and chronic respiratory failure with hypoxia (principal); J18.1 Lobar pneumonia, unspecified organism; R79.89 Other specified abnormal findings of blood chemistry; I10 Essential (primary) hypertension; F41.9 Anxiety disorder, unspecified; Z86.2 Personal history of diseases of the blood and blood-forming organs and certain disorders involving the immune mechanism; M19.90 Unspecified osteoarthritis, unspecified site; Z98.49 Cataract extraction status, unspecified eye; Z98.890 Other specified postprocedural states; Z90.49 Acquired absence of other specified parts of digestive tract; Z88.0 Allergy status to penicillin; Z88.1 Allergy status to other antibiotic agents; Z88.6 Allergy status to analgesic agent
CPT/HCPCS: 36415; 71045; 71275; 80053; 83880; 84484; 85027; 93005; 96365; 96367; 96375; 99285; A9270; J0696; J1644; J2930; J3490; J7030; J7050; Q9967

== ENCOUNTER 2019-08-09 05:04 | Inpatient (IN) | payer MEDICARE, MEDICAID ==
[2019-08-09] MEDS ORDERED: Acetaminophen 500 MG Tab PO ONE (05:26)
[2019-08-09] MEDS ORDERED: Sodium Chloride 0.9% 10 ML Syringe FLUSH PRN ×2 (05:30→08:43)
--- NOTE | 2019-08-09 05:37 | EDM.PDOC ---
ED HPI GENERAL MEDICAL PROBLEM - General Chief Complaint: Respiratory Problem Stated Complaint: [facility] Time Seen by Provider: 08/09/19 05:10 Source of Information: Reports: Patient, EMS History Limitations: Reports: No Limitations - History of Present Illness INITIAL COMMENTS - FREE TEXT/NARRATIVE: 59-year-old female with a history of COPD, tetralogy of [place] and coronary artery disease presents with 2 days of increased dyspnea, especially lying back or lying on her right side. Nebulizers help but only temporarily. She has had intermittent low-grade fevers as well. Denies chest pain. Has a cough but is nonproductive. Tonight she felt more short of breath than usual so they sent her up for evaluation. On arrival she has 92 to 94% O2 saturations with nasal cannula oxygen and a mild increased respiratory rate but is talking full sentences. She did receive influenza vaccine as well as a pneumonia shot. Onset: Gradual Duration: Day(s): (2 to 3 days) Associated Symptoms: Reports: Cough, Fever/Chills, Shortness of Breath - Related Data Allergies Allergy/AdvReac Type Severity Reaction Status Date / Time aspirin Allergy Cannot Verified 08/09/19 05:12 Remember cefaclor [From Ceclor] Allergy Cannot Verified 08/09/19 15:02 Remember Penicillins Allergy Rash Verified 08/09/19 05:12 Sulfa (Sulfonamide Allergy Rash Verified 08/09/19 05:12 Antibiotics) Home Meds: Home Meds ALPRAZolam [Alprazolam] 1 mg PO TID 03/19/14 [History] Albuterol [Proventil Neb Soln] 1 ampule IH Q4H PRN 03/19/14 [History] Budesonide [Pulmicort] 0.5 mg IH BID 03/19/14 [History] Citalopram Hydrobromide [Citalopram HBr] 40 mg PO DAILY 03/19/14 [History] Loratadine [Claritin] 10 mg PO DAILY 03/19/14 [History] Montelukast [Singulair] 10 mg PO DAILY 03/19/14 [History] Multivitamin [Multiple Vitamins] 1 tab PO DAILY 03/19/14 [History] Pseudoephedrine HCl [Nexafed] 30 mg PO TID 03/19/14 [History] Albuterol [Ventolin HFA] 2 puff INH Q4H PRN 10/26/17 [History] Nystatin 1 appful TOP BID 05/26/17 [History] guaiFENesin [Robafen] 10 ml PO Q4H PRN 05/26/17 [History] Acetaminophen [Acetaminophen ER] 500 mg PO QID 12/26/17 [History] Nystatin 1 each TOP ASDIRECTED PRN 12/26/17 [History] Sennosides/Docusate Sodium [Senna Plus Tablet] 2 tab PO Q12HR PRN 12/26/17 [ History] Triamterene/Hydrochlorothiazid [Triamterene-HCTZ 37.5-25 MG] 1 each PO DAILY [History] traMADol HCl [Tramadol HCl] 50 mg PO QID PRN 12/26/17 [History] Ipratropium/Albuterol Sulfate [Iprat-Albut 0.5-3(2.5) MG/3 ML] 3 ml IH QID 01/07 [History] Mirtazapine [Remeron] 7.5 mg PO BEDTIME 01/07/19 [History] busPIRone [Buspar] 15 mg PO BID 01/07/19 [History] Aspirin [Adult Low Dose Aspirin EC] 81 mg PO DAILY 08/09/19 [History] Fluticasone Propionate [Flovent Diskus] 50 mcg IH BID 08/09/19 [History] Furosemide [Lasix] 40 mg PO DAILY 08/09/19 [History] Metoprolol Succinate [Toprol XL] 12.5 mg PO DAILY 08/09/19 [History] guaiFENesin/Codeine Phosphate [Guaifenesin AC Cough Syrup] 400 mg PO Q4H PRN 04/20 [History] Past Medical History HEENT History: Reports: Cataract, Hard of Hearing Other HEENT History: Cataract on right. Cardiovascular History: Reports: Heart Murmur, Hypertension Other Cardiovascular History: open heart Respiratory History: Reports: Bronchitis, Recurrent, COPD Gastrointestinal History: Reports: GERD Genitourinary History: Reports: Renal Disease [employer] History: Reports: Musculoskeletal History: Reports: Arthritis Neurological History: Reports: Headaches, Chronic Psychiatric History: Reports: Anxiety, Developmental Delay, Learning Disability , Other (See Below) Other Psychiatric History: personality disorder Endocrine/Metabolic History: Reports: Obesity/BMI 30+ Hematologic History: Reports: Anemia, Blood Transfusion(s) - Infectious Disease History Infectious Disease History: Reports: Chicken Pox - Past Surgical History HEENT Surgical History: Reports: Cataract Surgery, Oral Surgery Cardiovascular Surgical History: Reports: Other (See Below) Other Cardiovascular Surgeries/Procedures: open heart surg when [age]. mitral valve insuficiency, tricuspid valve desease cardiomegaly GI Surgical History: Reports: Cholecystectomy, EGD, Hernia, Inguinal Female Surgical History: Reports: Breast Biopsy Neurological Surgical History: Reports: Scoliosis Other Musculoskeletal Surgeries/Procedures:: right knee three screws Social & Family History - Family History Family Medical History: Noncontributory - Caffeine Use Caffeine Use: Reports: Coffee Other Caffeine Use: 1-4 coffee's per/day. ED ROS GENERAL - Review of Systems Review Of Systems: See Below Constitutional: Reports: Fever, Chills, Malaise HEENT: Denies: Throat Pain Respiratory: Reports: Shortness of Breath, Cough. Denies: Sputum Cardiovascular: Denies: Chest Pain GI/Abdominal: Denies: Nausea, Vomiting Musculoskeletal: Reports: Shoulder Pain (Chronic shoulder pain) Neurological: Denies: Headache ED EXAM, GENERAL - Physical Exam Exam: See Below Exam Limited By: No Limitations General Appearance: Alert, No Apparent Distress (Looks uncomfortable but not distressed) Respiratory/Chest: Decreased Breath Sounds (Decreased breath sounds in the bases especially on the right with a few scattered rales and expiratory wheezes) Cardiovascular: Regular Rate, Rhythm GI/Abdominal: Soft, Non-Tender Extremities: Other (Scattered bruises superficially, no significant edema of the lower extremities) Neurological: Alert, Oriented Psychiatric: Anxious Skin Exam: Warm, Dry Course - Vital Signs Last Recorded V/S: Last Vital Signs Temp 99.9 F 08/09/19 15:24 Pulse 86 08/09/19 15:24 Resp 24 H 08/09/19 15:24 BP 119/56 L 08/09/19 15:24 Pulse Ox 95 08/09/19 15:24 - Orders/Labs/Meds Orders: Medication Orders Acetaminophen (Tylenol) 650 mg PO Q4H PRN PRN Reason: Pain (Mild 1-3)/fever Last Admin: 08/09/19 14:47 Dose: 650 mg Albuterol (Proventil Neb Soln) 2.5 mg NEB Q4H PRN PRN Reason: Shortness Of Breath/wheezing Albuterol/Ipratropium (Duoneb 3.0-0.5 Mg/3 Ml) 3 ml NEB QIDRT [facility] Last Admin: 08/09/19 14:33 Dose: 3 ml Admin: 08/09/19 11:31 Dose: 3 ml Alprazolam (Xanax) 1 mg PO TID [facility] Last Admin: 08/09/19 14:36 Dose: 1 mg Admin: 08/09/19 10:51 Dose: 1 mg Aspirin (Halfprin) 81 mg PO DAILY [facility] Last Admin: 08/09/19 10:46 Dose: 81 mg Budesonide (Pulmicort) 0.5 mg INH BIDRT [facility] Last Admin: 08/09/19 09:27 Dose: 0.5 mg Buspirone HCl 10 mg/ Buspirone (HCl 5 mg) 15 mg PO BID [facility] Last Admin: 08/09/19 10:51 Dose: 15 mg Citalopram Hydrobromide (Celexa) 40 mg PO DAILY [facility] Last Admin: 08/09/19 10:44 Dose: 40 mg Enoxaparin Sodium (Lovenox) 40 mg SUBCUT Q24H [facility] Last Admin: 08/09/19 12:26 Dose: 40 mg Furosemide (Lasix) 40 mg PO DAILY [facility] Guaifenesin/Codeine Phosphate (Robitussin Ac) 10 ml PO Q4H PRN PRN Reason: Cough Azithromycin 500 mg/ Sodium (Chloride) 250 mls @ 250 mls/hr IV Q24H [facility] Ceftriaxone Sodium 1 gm/ (Sodium Chloride) 50 mls @ 100 mls/hr IV Q24H [facility] Last Admin: 08/09/19 10:31 Dose: 100 mls/hr Sodium Chloride (Normal Saline) 1,000 mls @ 125 mls/hr IV ASDIRECTED [facility] Last Admin: 08/09/19 13:37 Dose: 125 mls/hr Infusion: 08/09/19 13:37 Dose: 125 mls/hr Admin: 08/09/19 10:08 Dose: 125 mls/hr Loratadine (Claritin) 10 mg PO DAILY [facility] Last Admin: 08/09/19 10:44 Dose: 10 mg Methylprednisolone Sodium Succinate (Solu-Medrol) 40 mg IVPUSH Q6H [facility] Last Admin: 08/09/19 12:27 Dose: 40 mg Metoprolol Succinate (Toprol Xl) 12.5 mg PO DAILY [facility] Mirtazapine (Remeron) 7.5 mg PO BEDTIME [facility] Montelukast Sodium (Singulair) 10 mg PO BEDTIME [facility] Ondansetron HCl (Zofran) 4 mg IV Q4H PRN PRN Reason: Nausea/Vomiting Polyethylene Glycol (Miralax) 17 gm PO DAILY PRN PRN Reason: Constipation Pseudoephedrine HCl (Sudogest) 30 mg PO TID [facility] Last Admin: 08/09/19 16:20 Dose: 30 mg Sodium Chloride (Saline Flush) 10 ml FLUSH ASDIRECTED PRN PRN Reason: Keep Vein Open Tramadol HCl (Ultram) 50 mg PO QID PRN PRN Reason: Pain Triamterene/HCTZ (Maxzide 25-37.5 Mg) 1 each PO DAILY [facility] Labs: Laboratory Tests 08/09/19 08/09/19 08/09/19 Range/Units 05:41 05:41 07:50 WBC 3.5 L (4.5-11.0) K/uL RBC 4.79 (3.30-5.50) M/uL Hgb 11.5 L (12.0-15.0) g/dL Hct 38.1 (36.0-48.0) % MCV 80 (80-98) fL MCH 24 L (27-31) pg MCHC 30 L (32-36) % Plt Count 178 (150-400) K/uL Neut % (Auto) 61 (36-66) % Lymph % (Auto) 15 L (24-44) % [place] % (Auto) 23 H (2-6) % Eos % (Auto) 1 L (2-4) % Baso % (Auto) 0 (0-1) % Sodium 136 L (140-148) mmol/L Potassium 3.1 L (3.6-5.2) mmol/L Chloride 97 L (100-108) mmol/L Carbon Dioxide 32 (21-32) mmol/L Anion Gap 10.1 (5.0-14.0) mmol/L BUN 10 (7-18) mg/dL Creatinine 0.7 (0.6-1.0) mg/dL Est Cr Clr Drug Dosing 61.39 mL/min Estimated GFR (MDRD) > 60 (>60) Glucose 100 (74-106) mg/dL Calcium 8.1 L (8.5-10.1) mg/dL Magnesium 2.1 (1.8-2.4) mg/dL Meds: Medications Generic Name Dose Route Start Last Admin Trade Name Freq PRN Reason Stop Dose Admin Acetaminophen 650 mg 08/09/19 08:43 08/09/19 14:47 Tylenol PO 650 mg Q4H PRN Administration Pain (Mild 1-3)/fever Albuterol 2.5 mg 08/09/19 08:43 Proventil Neb Soln NEB Q4H PRN Shortness Of Breath/wheezing Albuterol/Ipratropium 3 ml 08/09/19 11:00 08/09/19 14:33 Duoneb 3.0-0.5 Mg/3 Ml NEB 3 ml QIDRT [facility] Administration Alprazolam 1 mg 08/09/19 09:30 08/09/19 14:36 Xanax PO 1 mg TID [facility] Administration Aspirin 81 mg 08/09/19 09:00 08/09/19 10:46 Halfprin PO 81 mg DAILY [facility] Administration Budesonide 0.5 mg 08/09/19 09:00 08/09/19 09:27 Pulmicort INH 0.5 mg BIDRT [facility] Administration Buspirone HCl 10 mg/ Buspirone 15 mg 08/09/19 09:30 08/09/19 10:51 HCl 5 mg PO 15 mg BID [facility] Administration Citalopram Hydrobromide 40 mg 08/09/19 09:30 08/09/19 10:44 Celexa PO 40 mg DAILY [facility] Administration Enoxaparin Sodium 40 mg 08/09/19 11:00 08/09/19 12:26 Lovenox SUBCUT 40 mg Q24H [facility] Administration Furosemide 40 mg 08/09/19 09:00 Lasix PO DAILY [facility] Guaifenesin/Codeine Phosphate 10 ml 08/09/19 14:35 Robitussin Ac PO Q4H PRN Cough Azithromycin 500 mg/ Sodium 250 mls @ 250 mls/hr 08/10/19 06:00 Chloride IV Q24H [facility] Ceftriaxone Sodium 1 gm/ 50 mls @ 100 mls/hr 08/09/19 10:00 08/09/19 10:31 Sodium Chloride IV 100 mls/hr Q24H [facility] Administration Sodium Chloride 1,000 mls @ 125 mls/hr 08/09/19 08:43 08/09/19 13:37 Normal Saline IV 125 mls/hr ASDIRECTED [facility] Administration Loratadine 10 mg 08/09/19 09:00 08/09/19 10:44 Claritin PO 10 mg DAILY [facility] Administration Methylprednisolone Sodium Succinate 40 mg 08/09/19 12:00 08/09/19 12:27 Solu-Medrol IVPUSH 40 mg Q6H [facility] Administration Metoprolol Succinate 12.5 mg 08/09/19 09:00 Toprol Xl PO DAILY [facility] Mirtazapine 7.5 mg 08/09/19 21:00 Remeron PO BEDTIME [facility] Montelukast Sodium 10 mg 08/09/19 21:00 Singulair PO BEDTIME [facility] Ondansetron HCl 4 mg 08/09/19 08:43 Zofran IV Q4H PRN Nausea/Vomiting Polyethylene Glycol 17 gm 08/09/19 08:43 Miralax PO DAILY PRN Constipation Pseudoephedrine HCl 30 mg 08/09/19 15:15 08/09/19 16:20 Sudogest PO 30 mg TID [facility] Administration Sodium Chloride 10 ml 08/09/19 08:43 Saline Flush FLUSH ASDIRECTED PRN Keep Vein Open Tramadol HCl 50 mg 08/09/19 08:43 Ultram PO QID PRN Pain Triamterene/HCTZ 1 each 08/09/19 09:00 Maxzide 25-37.5 Mg PO DAILY [facility] Discontinued Medications Generic Name Dose Route Start Last Admin Trade Name Freq PRN Reason Stop Dose Admin Acetaminophen 1,000 mg 08/09/19 05:26 08/09/19 06:12 Tylenol Extra Strength PO 08/09/19 05:27 1,000 mg ONETIME ONE Administration Furosemide 40 mg 08/09/19 05:58 08/09/19 06:13 Lasix IVPUSH 08/09/19 05:59 40 mg ONETIME ONE Administration Azithromycin 500 mg/ Sodium 250 mls @ 250 mls/hr 08/09/19 05:58 08/09/19 06: 13 Chloride IV 08/09/19 06:57 250 mls/hr ONETIME ONE Administration Potassium Chloride/Sodium Chloride 1,000 mls @ 500 mls/hr 08/09/19 08:00 04/20 07:58 Normal Saline With 20 Meq Kcl IV 500 mls/hr ASDIRECTED [facility] Administration Sodium Chloride 1,000 mls @ 500 mls/hr 08/09/19 10:45 08/09/19 11:13 Normal Saline IV 08/09/19 12:44 500 mls/hr ASDIRECTED [facility] Administration Methylprednisolone Sodium Succinate 125 mg 08/09/19 05:58 08/09/19 06:12 Solu-Medrol IVPUSH 08/09/19 05:59 125 mg ONETIME ONE Administration Potassium Chloride 40 meq 08/09/19 07:50 08/09/19 07:58 Potassium Chloride PO 08/09/19 07:51 40 meq ONETIME ONE Administration Potassium Chloride 40 meq 08/09/19 10:00 08/09/19 10:46 Klor-Con M20 PO 08/09/19 10:01 40 meq ONETIME ONE Administration Sodium Chloride 10 ml 08/09/19 05:30 08/09/19 05:37 Saline Flush FLUSH 10 ml ASDIRECTED PRN Administration Keep Vein Open - Re-Assessments/Exams Free Text/Narrative Re-Assessment/Exam: 08/09/19 05:56 A 2 view chest x-ray was obtained which was very similar to 2018, very minimal vascular congestion and no obvious infiltrate. An IV was started and the patient was given 125 mg of Solu-Medrol IV and 1000 mg of oral Tylenol for shoulder pain. She normally gets 40 mg of Lasix in the morning, so was given 20 mg of Lasix IV. Influenza antigens negative. Admission to hospitalist service. WBC 3.5 Departure - Departure Time of Disposition: 08:30 Disposition: Admitted As Inpatient 65 Clinical Impression: COPD with acute exacerbation, Tetralogy of [place] s/p repair - Discharge Information Sepsis Event Note - Evaluation Sepsis Screening Result: Possible Sepsis Risk - Focused Exam Vital Signs: Vital Signs Pulse Resp BP Pulse Ox 08/09/19 07:52 87 74/44 L 94 L 08/09/19 06:34 85 20 98/37 L 94 L Date Exam was Performed: 08/09/19 Time Exam was Performed: 17:17
[2019-08-09] MEDS ORDERED: Azithromycin 500 MG in Sodium Chloride 0.9% 250 ML IV ONE (05:58)
[2019-08-09] MEDS ORDERED: methylPREDNISolone Sodium Succinate 125 MG/2 ML SDV IVPUSH ONE (05:58)
[2019-08-09] MEDS ORDERED: Furosemide 40 MG/4 ML VIAL IVPUSH ONE (05:58)
[2019-08-09] MEDS ORDERED: Potassium Chloride 10 MEQ Cap.ER PO ONE (07:50)
[2019-08-09] MEDS ORDERED: NS + KCl 20mEq/L 1,000 ML IV SCH (08:00)
--- NOTE | 2019-08-09 08:06 | PCM.HP.2 ---
H&P History of Present Illness - General Date of Service: 08/09/19 Admit Problem/Dx: Admission Diagnosis/Problem Admission Diagnosis/Problem Hypoxia Source of Information: Patient, Family, Old Records, Provider History Limitations: Reports: No Limitations - History of Present Illness Initial Comments - Free Text/Narative: Ms. Marti is a 59-year-old woman who was admitted through the emergency department with cough and increased shortness of breath secondary to COPD exacerbation and underlying bronchitis. She has a history of significant cardiac disease with underlying coronary artery disease as well as congenital tetralogy of Fallot. Over the last 2 days she is developed increased shortness of breath and cough. On evaluation in the emergency department she was found to be hypoxic. White blood cell count is within normal range and chest x-ray shows no obvious infiltrate. - Related Data Allergies/Adverse Reactions: Allergies Allergy/AdvReac Type Severity Reaction Status Date / Time aspirin Allergy Cannot Verified 08/09/19 05:12 Remember cefaclor [From Ceclor] Allergy Cannot Verified 08/09/19 05:12 Remember Penicillins Allergy Rash Verified 08/09/19 05:12 Sulfa (Sulfonamide Allergy Rash Verified 08/09/19 05:12 Antibiotics) Home Medications: Home Meds ALPRAZolam [Alprazolam] 1 mg PO TID 03/19/14 [History] Albuterol [Proventil Neb Soln] 1 ampule IH Q4H PRN 03/19/14 [History] Budesonide [Pulmicort] 0.5 mg IH BID 03/19/14 [History] Citalopram Hydrobromide [Citalopram HBr] 40 mg PO DAILY 03/19/14 [History] Loratadine [Claritin] 10 mg PO DAILY 03/19/14 [History] Montelukast [Singulair] 10 mg PO DAILY 03/19/14 [History] Multivitamin [Multiple Vitamins] 1 tab PO DAILY 03/19/14 [History] Pseudoephedrine HCl [Nexafed] 30 mg PO Q6H PRN 03/19/14 [History] Albuterol [Ventolin HFA] 2 puff INH Q4H PRN 05/26/17 [History] Nystatin 1 appful TOP BID 05/26/17 [History] guaiFENesin [Robafen] 10 ml PO Q4H PRN 05/26/17 [History] Acetaminophen [Acetaminophen ER] 500 mg PO QID 12/26/17 [History] Nystatin 1 each TOP ASDIRECTED PRN 12/26/17 [History] Sennosides/Docusate Sodium [Senna Plus Tablet] 2 tab PO Q12HR PRN 12/26/17 [ History] Triamterene/Hydrochlorothiazid [Triamterene-HCTZ 37.5-25 MG] 1 each PO DAILY [History] traMADol HCl [Tramadol HCl] 50 mg PO QID PRN 12/26/17 [History] Ipratropium/Albuterol Sulfate [Iprat-Albut 0.5-3(2.5) MG/3 ML] 3 ml IH QID 01/07 [History] Mirtazapine [Remeron] 7.5 mg PO BEDTIME 01/07/19 [History] busPIRone [Buspar] 15 mg PO BID 01/07/19 [History] Aspirin [Adult Low Dose Aspirin EC] 81 mg PO DAILY 08/09/19 [History] Fluticasone Propionate [Flovent Diskus] 50 mcg IH BID 08/09/19 [History] Furosemide [Lasix] 40 mg PO DAILY 08/09/19 [History] Metoprolol Succinate [Toprol XL] 12.5 mg PO DAILY 08/09/19 [History] guaiFENesin/Codeine Phosphate [Guaifenesin AC Cough Syrup] 400 mg PO Q4H PRN 04/20 [History] Past Medical History HEENT History: Reports: Cataract, Hard of Hearing Other HEENT History: Cataract on right. 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: Musculoskeletal History: Reports: Arthritis Neurological History: Reports: Headaches, Chronic Psychiatric History: Reports: Anxiety, Developmental Delay, Learning Disability , Other (See Below) Other Psychiatric History: personality disorder Endocrine/Metabolic History: Reports: Obesity/BMI 30+ Hematologic History: Reports: Anemia, Blood Transfusion(s) - Infectious Disease History Infectious Disease History: Reports: Chicken Pox - Past Surgical History HEENT Surgical History: Reports: Cataract Surgery, Oral Surgery Cardiovascular Surgical History: Reports: Other (See Below) Other Cardiovascular Surgeries/Procedures: open heart surg when [age]. mitral valve insuficiency, tricuspid valve desease cardiomegaly GI Surgical History: Reports: Cholecystectomy, EGD, Hernia, Inguinal Female Surgical History: Reports: Breast Biopsy Neurological Surgical History: Reports: Scoliosis Other Musculoskeletal Surgeries/Procedures:: right knee three screws Social & Family History - Family History Family Medical History: Noncontributory - Tobacco Use Smoking Status *Q: Never Smoker - Caffeine Use Caffeine Use: Reports: Coffee Other Caffeine Use: 1-4 coffee's per/day. - Recreational Drug Use Recreational Drug Use: No H&P Review of Systems - Review of Systems: Review Of Systems: See Below General: Reports: Fever, Chills, Malaise, Weakness HEENT: Reports: No Symptoms Pulmonary: Reports: Shortness of Breath, Cough, Sputum. Denies: Wheezing, Pleuritic Chest Pain, Hemoptysis Cardiovascular: Reports: Dyspnea on Exertion. Denies: Chest Pain, Palpitations , Orthopnea, PND, Edema, Lightheadedness Gastrointestinal: Reports: No Symptoms Genitourinary: Reports: No Symptoms Musculoskeletal: Reports: No Symptoms Skin: Reports: No Symptoms Psychiatric: Reports: No Symptoms Neurological: Reports: No Symptoms Exam - Exam Exam: See Below - Vital Signs Vital Signs: Last Vital Signs Temp 99.6 F 08/09/19 05:08 Pulse 87 08/09/19 07:52 Resp 20 08/09/19 06:34 BP 74/44 L 08/09/19 07:52 Pulse Ox 94 L 08/09/19 07:52 Weight: 205 lb - Exam Quality Assessment: Supplemental Oxygen, DVT Prophylaxis General: Alert, Oriented, Cooperative, Mild Distress HEENT: Conjunctiva Clear, Hearing Intact, Mucosa Moist & [place], Normal Nasal Septum, Posterior Pharynx Clear, Pupils Equal Neck: Supple, Trachea Midline, +2 Carotid Pulse wo Bruit Lungs: Decreased Breath Sounds. No: Rales, Rhonchi, Rub, Wheezing Cardiovascular: Regular Rate, Regular Rhythm, Normal S1, Normal S2. No: Systolic Murmur, Diastolic Murmur GI/Abdominal Exam: Soft, Non-Tender, No Organomegaly, No Distention Back Exam: Normal Inspection, Full Range of Motion Extremities: Non-Tender, No Pedal Edema Skin: Warm, Dry, Intact Neurological: Cranial Nerves Intact, Strength Equal Bilateral, Normal Speech, Normal Tone, Sensation Intact. No: Focal Deficit Neuro Extensive - Mental Status: Alert, Oriented x3, Normal Mood/Affect, Normal Cognition, Memory Intact - Patient Data Lab Results Last 24 hrs: Laboratory Results - last 24 hr 08/09/19 08/09/19 08/09/19 Range/Units 05:41 05:41 07:50 WBC 3.5 L (4.5-11.0) K/uL RBC 4.79 (3.30-5.50) M/uL Hgb 11.5 L (12.0-15.0) g/dL Hct 38.1 (36.0-48.0) % MCV 80 (80-98) fL MCH 24 L (27-31) pg MCHC 30 L (32-36) % Plt Count 178 (150-400) K/uL Neut % (Auto) 61 (36-66) % Lymph % (Auto) 15 L (24-44) % [place] % (Auto) 23 H (2-6) % Eos % (Auto) 1 L (2-4) % Baso % (Auto) 0 (0-1) % Sodium 136 L (140-148) mmol/L Potassium 3.1 L (3.6-5.2) mmol/L Chloride 97 L (100-108) mmol/L Carbon Dioxide 32 (21-32) mmol/L Anion Gap 10.1 (5.0-14.0) mmol/L BUN 10 (7-18) mg/dL Creatinine 0.7 (0.6-1.0) mg/dL Est Cr Clr Drug Dosing 61.39 mL/min Estimated GFR (MDRD) > 60 (>60) Glucose 100 (74-106) mg/dL Calcium 8.1 L (8.5-10.1) mg/dL Magnesium 2.1 (1.8-2.4) mg/dL Result Diagrams: 08/09/19 05:41 08/09/19 05:41 Micheal Results Last 24 hrs: Microbiology 08/09/19 06:14 Influenza Type A Antigen Screen - Final Nasal, Unspecified NEGATIVE INFLUENZA A VIRUS AG REFERENCE RANGE: NEGATIVE Influenza Type B Antigen Screen - Final NEGATIVE INFLUENZA B VIRUS AG REFERENCE RANGE: NEGATIVE Sepsis Event Note - Evaluation Sepsis Screening Result: Possible Sepsis Risk - Focused Exam Vital Signs: Vital Signs Temp Pulse Resp BP Pulse Ox 08/09/19 07:52 87 74/44 L 94 L 08/09/19 06:34 85 20 98/37 L 94 L 08/09/19 05:08 99.6 F 91 22 H 128/65 94 L Date Exam was Performed: 08/09/19 Time Exam was Performed: 10:54 *Q Meaningful Use (ADM) - VTE Risk Assess *Q Each Risk Factor Represents 1 Point: Obesity ( BMI > 25 kg/m2), Abnormal Pulmonary Function (COPD) Total Score 1 Point Risk Factors: 2 Each Risk Factor Represents 2 Points: Age 60 - 74 Years Total Score 2 Point Risk Factors: 2 Each Risk Factor Represents 3 Points: None Total Score 3 Point Risk Factors: 0 Each Risk Factor Represents 5 Points: None Total Score 5 Point Risk Factors: 0 Venous Thromboembolism Risk Factor Score *Q: 4 Problem List Initiated/Reviewed/Updated: Yes Orders Last 24hrs: Active Orders 24 hr Category Date Time Status Patient Status Manage Transfer [TRANSFER] Routine ADT 08/09/19 07:57 Ordered Chest 2V [CR] Routine Exams 08/09/19 05:19 Taken NS + KCl 20mEq/L [Normal Saline with 20 mEq KCl] 1,000 Med 08/09/19 08:00 Active ml IV ASDIRECTED Sodium Chloride 0.9% [Saline Flush] Med 08/09/19 05:30 Active 10 ml FLUSH ASDIRECTED PRN Saline Lock Insert [OM.PC] Routine Oth 08/09/19 05:30 Ordered Resuscitation Status Routine Resus Stat 08/09/19 08:01 Ordered Medication Orders Potassium Chloride/Sodium Chloride (Normal Saline With 20 Meq Kcl) 1,000 mls @ 500 mls/hr IV ASDIRECTED MACARIO Last Admin: 08/09/19 07:58 Dose: 500 mls/hr Sodium Chloride (Saline Flush) 10 ml FLUSH ASDIRECTED PRN PRN Reason: Keep Vein Open Last Admin: 08/09/19 05:37 Dose: 10 ml Assessment/Plan Comment:: ASSESSMENT AND PLAN COPD EXACERBATION/BRONCHITIS-increased shortness of breath and cough over the past few days resulting in hypoxia. Likely secondary to underlying bronchitis, bacterial versus viral. -Nebulized albuterol and DuoNebs -Solu-Medrol 40 mg IV every 6 hours -IV azithromycin and ceftriaxone -Continuous pulse oximetry -IV fluids HYPOXIA-secondary to underlying COPD with exacerbation and infection -Supplemental oxygen as needed TETROLOGY OF FALLOT -Continue outpatient medications MAINTENANCE ISSUES -DVT prophylaxis; Lovenox 40 mg subcu daily -GI prophylaxis; not indicated -Sharma catheter; not indicated -Nutrition; consistent carb diet -Nicotine dependence; not required CODE STATUS-DNR/DNI ADMISSION STATUS-patient will be admitted to inpatient status, expect at least a 2 night hospital stay for evaluation and management of problems as outlined above. At the time of this admission I do not reasonably expected evaluation and management of this problem will require more than a 96 hour hospital stay. DISPOSITION-anticipate discharge to home after the hospital stay. PRIMARY CARE PROVIDER-Dr. Fernandez - Mortality Measure Prognosis:: Good
--- NOTE | 2019-08-09 08:10 | CRLCR ---
HISTORY: Dyspnea. TECHNIQUE: Two views of the chest. COMPARISON: 01/07/2019. FINDINGS: Cardiomegaly. No lung consolidation or definite pulmonary edema. There is no pneumothorax. No moderate or large pleural effusion. Prior spinal instrumentation. IMPRESSION: 1. Cardiomegaly. 2. No acute lung infiltrate or pulmonary edema. Dictated by Jeevan Pelletier MD @ 08/09/2019 8:09:21 AM Dictated by: Jeevan Pelletier MD @ 08/09/2019 08:09:28 (Electronically Signed)
[2019-08-09] MEDS ORDERED: Ondansetron 4 MG/2 ML SDV IV PRN (08:43)
[2019-08-09] MEDS ORDERED: traMADol 50 MG Tab PO PRN (08:43)
[2019-08-09] MEDS ORDERED: Polyethylene Glycol 3350 Powder 17 GM Packet PO PRN (08:43)
[2019-08-09] MEDS ORDERED: CITALOPRAM HYDROBROMIDE 40 MG PO SCH (09:00)
[2019-08-09] MEDS ORDERED: Hydrochlorothiazide/Triamterene 25-37.5 Tab PO SCH (09:00)
[2019-08-09] MEDS ORDERED: ALPRAZOLAM 1 MG PO SCH (09:00)
[2019-08-09] MEDS ORDERED: Non-Formulary Medication 1 Each (Buspirone [Buspar] 15 MG) PO SCH (09:00)
[2019-08-09] MEDS ORDERED: Furosemide 40 MG Tab PO SCH (09:00)
[2019-08-09] MEDS ORDERED: Metoprolol Succinate 25 MG Tab.ER PO SCH (09:00)
[2019-08-09] MEDS: Budesonide 0.5 MG/2 ML Neb Susp INH SCH ×2 (09:27→20:27)
[2019-08-09] MEDS ORDERED: Potassium Chloride 20 MEQ Tab.ER PO ONE (10:00)
[2019-08-09] MEDS: Sodium Chloride 0.9% 1,000 ML IV SCH ×3 (10:08→21:27)
[2019-08-09] MEDS: cefTRIAXone 1 GM in Sodium Chloride 0.9% 50 ML IV SCH (10:31)
[2019-08-09] MEDS: Citalopram 20 MG Tab PO SCH (10:44)
[2019-08-09] MEDS: Loratadine 10 MG Tab PO SCH (10:44)
[2019-08-09] MEDS ORDERED: Sodium Chloride 0.9% 1,000 ML IV SCH (10:45)
[2019-08-09] MEDS: Aspirin 81 MG Tab.EC PO SCH (10:46)
[2019-08-09] MEDS: busPIRone 10 MG, busPIRone 5 MG PO SCH ×4 (10:51→20:17)
[2019-08-09] MEDS: ALPRAZolam 0.5 MG Tab PO SCH ×3 (10:51→20:26)
[2019-08-09] MEDS: Albuterol/Ipratropium 3.0-0.5 MG/3 ML Neb Soln NEB SCH ×3 (11:31→20:27)
[2019-08-09] MEDS: Enoxaparin 40 MG/0.4 ML Syringe SUBCUT SCH (12:26)
[2019-08-09] MEDS: methylPREDNISolone Sodium Succinate 40 MG/1 ML SDV IVPUSH SCH ×3 (12:27→23:26)
[2019-08-09] MEDS: Acetaminophen 325 MG Tab PO PRN ×2 (14:47→20:26)
[2019-08-09] MEDS: Pseudoephedrine 30 MG Tab PO SCH ×2 (16:20→20:17)
[2019-08-09] MEDS: Codeine/guaiFENesin 100mg-10 MG/5 ML Syrup 10 ML Cup PO PRN ×2 (19:14→23:26)
[2019-08-09] MEDS: Montelukast 10 MG Tab PO SCH (20:17)
[2019-08-09] MEDS: Mirtazapine 15 MG Tab PO SCH (20:17)
[2019-08-09] MEDS ORDERED: Non-Formulary Medication 1 Each (Mirtazapine [Remeron] 7.5 MG) PO SCH (21:00)
[2019-08-10] MEDS: Albuterol 0.083% 2.5 MG/3 ML Neb Soln NEB PRN (01:16)
[2019-08-10] MEDS: methylPREDNISolone Sodium Succinate 40 MG/1 ML SDV IVPUSH SCH ×2 (05:40→11:35)
[2019-08-10] MEDS ORDERED: Azithromycin 500 MG in Sodium Chloride 0.9% 250 ML IV SCH (06:00)
[2019-08-10] MEDS: Acetaminophen 325 MG Tab PO PRN ×2 (06:36→11:07)
[2019-08-10] MEDS: Albuterol/Ipratropium 3.0-0.5 MG/3 ML Neb Soln NEB SCH ×4 (07:05→20:15)
[2019-08-10] MEDS: Budesonide 0.5 MG/2 ML Neb Susp INH SCH ×2 (07:05→20:15)
[2019-08-10] MEDS ORDERED: Sodium Chloride 0.9% 500 ML IV ONE (08:30)
[2019-08-10] MEDS: busPIRone 10 MG, busPIRone 5 MG PO SCH ×4 (08:52→20:18)
[2019-08-10] MEDS: Pseudoephedrine 30 MG Tab PO SCH ×3 (08:52→20:19)
[2019-08-10] MEDS: Loratadine 10 MG Tab PO SCH (08:53)
[2019-08-10] MEDS: Citalopram 20 MG Tab PO SCH (08:53)
[2019-08-10] MEDS: Aspirin 81 MG Tab.EC PO SCH (08:53)
[2019-08-10] MEDS: ALPRAZolam 0.5 MG Tab PO SCH ×2 (08:57→13:32)
[2019-08-10] MEDS: Sodium Chloride 0.9% 1,000 ML IV SCH (09:38)
[2019-08-10] MEDS: cefTRIAXone 1 GM in Sodium Chloride 0.9% 50 ML IV SCH (11:06)
[2019-08-10] MEDS: Codeine/guaiFENesin 100mg-10 MG/5 ML Syrup 10 ML Cup PO PRN (11:17)
[2019-08-10] MEDS: Enoxaparin 40 MG/0.4 ML Syringe SUBCUT SCH (11:35)
--- NOTE | 2019-08-10 12:14 | PCM.PN ---
- General Info Date of Service: 08/10/19 Subjective Update: Ms. Marti been stable since admission yesterday with improvement in respiratory status. She reports less shortness of breath and has had good oxygenation. Intermittent episodes of hypotension, blood pressure medications will be held. Functional Status: Reports: Tolerating Diet, Ambulating, Urinating - Review of Systems General: Reports: Weakness. Denies: Fever, Chills Pulmonary: Reports: Shortness of Breath, Cough. Denies: Pleuritic Chest Pain, Sputum, Hemoptysis, Wheezing Cardiovascular: Reports: Dyspnea on Exertion. Denies: Chest Pain, Palpitations , Orthopnea, PND, Edema, Lightheadedness Gastrointestinal: Reports: No Symptoms - Patient Data Vitals - Most Recent: Last Vital Signs Temp 98.2 F 08/10/19 11:19 Pulse 87 08/10/19 11:19 Resp 16 08/10/19 11:19 BP 99/60 08/10/19 11:19 Pulse Ox 95 08/10/19 11:19 Weight - Most Recent: 205 lb I&O - Last 24 Hours: Intake & Output 08/09/19 08/10/19 08/10/19 22:59 06:59 14:59 Intake Total 2425 2085 1162 Output Total 975 2625 Balance 1450 -540 1162 Lab Results Last 24 Hours: Laboratory Results - last 24 hr 08/10/19 08/10/19 Range/Units 04:10 04:10 WBC 2.7 L (4.5-11.0) K/uL RBC 4.40 (3.30-5.50) M/uL Hgb 10.5 L (12.0-15.0) g/dL Hct 35.7 L (36.0-48.0) % MCV 81 (80-98) fL MCH 24 L (27-31) pg MCHC 29 L (32-36) % Plt Count 157 (150-400) K/uL Neut % (Auto) 83 H (36-66) % Lymph % (Auto) 7 L (24-44) % [place] % (Auto) 10 H (2-6) % Eos % (Auto) 0 L (2-4) % Baso % (Auto) 0 (0-1) % Sodium 141 (140-148) mmol/L Potassium 4.0 (3.6-5.2) mmol/L Chloride 106 (100-108) mmol/L Carbon Dioxide 29 (21-32) mmol/L Anion Gap 5.7 (5.0-14.0) mmol/L BUN 6 L (7-18) mg/dL Creatinine 0.5 L (0.6-1.0) mg/dL Est Cr Clr Drug Dosing 85.94 mL/min Estimated GFR (MDRD) > 60 (>60) Glucose 149 H (74-106) mg/dL Calcium 7.3 L (8.5-10.1) mg/dL Magnesium 2.1 (1.8-2.4) mg/dL Micheal Results Last 24 Hours: Microbiology 08/09/19 06:14 Influenza Type A Antigen Screen - Final Nasal, Unspecified NEGATIVE INFLUENZA A VIRUS AG REFERENCE RANGE: NEGATIVE Influenza Type B Antigen Screen - Final NEGATIVE INFLUENZA B VIRUS AG REFERENCE RANGE: NEGATIVE Med Orders - Current: Current Medications Acetaminophen (Tylenol) 650 mg PO Q4H PRN PRN Reason: Pain (Mild 1-3)/fever Last Admin: 08/10/19 11:07 Dose: 650 mg Albuterol (Proventil Neb Soln) 2.5 mg NEB Q4H PRN PRN Reason: Shortness Of Breath/wheezing Last Admin: 08/10/19 01:16 Dose: 2.5 mg Albuterol/Ipratropium (Duoneb 3.0-0.5 Mg/3 Ml) 3 ml NEB QIDRT [facility] Last Admin: 08/10/19 11:01 Dose: 3 ml Alprazolam (Xanax) 1 mg PO TID [facility] Last Admin: 08/10/19 08:57 Dose: 1 mg Aspirin (Halfprin) 81 mg PO DAILY [facility] Last Admin: 08/10/19 08:53 Dose: 81 mg Budesonide (Pulmicort) 0.5 mg INH BIDRT [facility] Last Admin: 08/10/19 07:05 Dose: 0.5 mg Buspirone HCl 10 mg/ Buspirone (HCl 5 mg) 15 mg PO BID [facility] Last Admin: 08/10/19 08:52 Dose: 15 mg Citalopram Hydrobromide (Celexa) 40 mg PO DAILY [facility] Last Admin: 08/10/19 08:53 Dose: 40 mg Enoxaparin Sodium (Lovenox) 40 mg SUBCUT Q24H [facility] Last Admin: 08/10/19 11:35 Dose: 40 mg Azithromycin 500 mg/ Sodium (Chloride) 250 mls @ 250 mls/hr IV Q24H [facility] Last Admin: 08/10/19 05:40 Dose: 250 mls/hr Ceftriaxone Sodium 1 gm/ (Sodium Chloride) 50 mls @ 100 mls/hr IV Q24H [facility] Last Admin: 08/10/19 11:06 Dose: 100 mls/hr Loratadine (Claritin) 10 mg PO DAILY [facility] Last Admin: 08/10/19 08:53 Dose: 10 mg Methylprednisolone Sodium Succinate (Solu-Medrol) 40 mg IVPUSH Q6H [facility] Last Admin: 08/10/19 11:35 Dose: 40 mg Mirtazapine (Remeron) 7.5 mg PO BEDTIME [facility] Last Admin: 08/09/19 20:17 Dose: 7.5 mg Montelukast Sodium (Singulair) 10 mg PO BEDTIME [facility] Last Admin: 08/09/19 20:17 Dose: 10 mg Ondansetron HCl (Zofran) 4 mg IV Q4H PRN PRN Reason: Nausea/Vomiting Polyethylene Glycol (Miralax) 17 gm PO DAILY PRN PRN Reason: Constipation Pseudoephedrine HCl (Sudogest) 30 mg PO TID [facility] Last Admin: 08/10/19 08:52 Dose: 30 mg Sodium Chloride (Saline Flush) 10 ml FLUSH ASDIRECTED PRN PRN Reason: Keep Vein Open Tramadol HCl (Ultram) 50 mg PO QID PRN PRN Reason: Pain Discontinued Medications Acetaminophen (Tylenol Extra Strength) 1,000 mg PO ONETIME ONE Stop: 08/09/19 05:27 Last Admin: 08/09/19 06:12 Dose: 1,000 mg Furosemide (Lasix) 40 mg IVPUSH ONETIME ONE Stop: 08/09/19 05:59 Last Admin: 08/09/19 06:13 Dose: 40 mg Furosemide (Lasix) 40 mg PO DAILY [facility] Last Admin: 08/10/19 09:41 Dose: Not Given Guaifenesin/Codeine Phosphate (Robitussin Ac) 10 ml PO Q4H PRN PRN Reason: Cough Last Admin: 08/10/19 11:17 Dose: 10 ml Azithromycin 500 mg/ Sodium (Chloride) 250 mls @ 250 mls/hr IV ONETIME ONE Stop: 08/09/19 06:57 Last Admin: 08/09/19 06:13 Dose: 250 mls/hr Potassium Chloride/Sodium Chloride (Normal Saline With 20 Meq Kcl) 1,000 mls @ 500 mls/hr IV ASDIRECTED [facility]ARIO Last Admin: 08/09/19 07:58 Dose: 500 mls/hr Sodium Chloride (Normal Saline) 1,000 mls @ 75 mls/hr IV ASDIRECTED [place] Last Admin: 08/10/19 09:38 Dose: 75 mls/hr Sodium Chloride (Normal Saline) 1,000 mls @ 500 mls/hr IV ASDIRECTED [place]IO Stop: 08/09/19 12:44 Last Admin: 08/09/19 11:13 Dose: 500 mls/hr Sodium Chloride (Normal Saline) 500 mls @ 500 mls/hr IV BOLUS ONE Stop: 08/10/19 09:29 Last Admin: 08/10/19 08:40 Dose: 500 mls/hr Methylprednisolone Sodium Succinate (Solu-Medrol) 125 mg IVPUSH ONETIME ONE Stop: 08/09/19 05:59 Last Admin: 08/09/19 06:12 Dose: 125 mg Metoprolol Succinate (Toprol Xl) 12.5 mg PO DAILY [facility] Last Admin: 08/10/19 09:42 Dose: Not Given Potassium Chloride (Potassium Chloride) 40 meq PO ONETIME ONE Stop: 08/09/19 07:51 Last Admin: 08/09/19 07:58 Dose: 40 meq Potassium Chloride (Klor-Con M20) 40 meq PO ONETIME ONE Stop: 08/09/19 10:01 Last Admin: 08/09/19 10:46 Dose: 40 meq Sodium Chloride (Saline Flush) 10 ml FLUSH ASDIRECTED PRN PRN Reason: Keep Vein Open Last Admin: 08/09/19 05:37 Dose: 10 ml Triamterene/HCTZ (Maxzide 25-37.5 Mg) 1 each PO DAILY [facility] Last Admin: 08/10/19 09:42 Dose: Not Given - Exam Quality Assessment: DVT Prophylaxis General: Alert, Oriented, Cooperative, No Acute Distress Lungs: Clear to Auscultation, Normal Respiratory Effort, Decreased Breath Sounds. No: Rales, Rhonchi, Rub, Wheezing Cardiovascular: Regular Rate, Regular Rhythm, No Murmurs GI/Abdominal Exam: Soft, Non-Tender, No Organomegaly, No Distention Extremities: Non-Tender, No Pedal Edema Sepsis Event Note - Evaluation Sepsis Screening Result: Severe Sepsis Risk - Focused Exam Vital Signs: Vital Signs Temp Pulse Resp BP BP Pulse Ox 08/10/19 11:19 98.2 F 87 16 99/60 95 08/10/19 11:01 94 08/10/19 09:39 106/69 08/10/19 08:00 94 L 08/10/19 07:30 98.1 F 97 16 80/49 L 91 L 08/10/19 07:06 88 08/10/19 03:30 97.8 F 99 20 103/69 95 08/10/19 00:34 91 L Date Exam was Performed: 08/10/19 Time Exam was Performed: 12:19 - Problem List Review Problem List Initiated/Reviewed/Updated: Yes - My Orders Last 24 Hours: My Active Orders 08/09/19 12:00 methylPREDNISolone Sod Succ [Solu-MEDROL] 40 mg IVPUSH Q6H 08/09/19 15:15 Pseudoephedrine [Sudogest] 30 mg PO TID 08/09/19 21:00 Mirtazapine [Remeron] 7.5 mg PO BEDTIME Montelukast [Singulair] 10 mg PO BEDTIME 08/10/19 06:00 Azithromycin [Zithromax] 500 mg Sodium Chloride 0.9% [Normal Saline] 250 ml IV Q24H 08/10/19 08:31 Communication Order [RC] ASDIRECTED 08/10/19 12:08 Convert IV to Saline Lock [OM.PC] Routine - Plan Plan:: ASSESSMENT AND PLAN COPD EXACERBATION/BRONCHITIS-increased shortness of breath and cough over the past few days resulting in hypoxia. Likely secondary to underlying bronchitis, bacterial versus viral. Since admission with less shortness of breath and cough -Nebulized albuterol and DuoNebs -Solu-Medrol 40 mg IV every 6 hours -IV azithromycin and ceftriaxone -Daily lock IV HYPOXIA-secondary to underlying COPD with exacerbation and infection. Proved with current management -Supplemental oxygen as needed TETROLOGY OF FALLOT -Continue outpatient medications HYPOTENSION-likely secondary to blood pressure medications -Hold metoprolol, triamterene/hydrochlorothiazide, and furosemide MAINTENANCE ISSUES -DVT prophylaxis; Lovenox 40 mg subcu daily -GI prophylaxis; not indicated -Sharma catheter; not indicated -Nutrition; consistent carb diet -Nicotine dependence; not required CODE STATUS-DNR/DNI ADMISSION STATUS-patient will be admitted to inpatient status, expect at least a 2 night hospital stay for evaluation and management of problems as outlined above. At the time of this admission I do not reasonably expected evaluation and management of this problem will require more than a 96 hour hospital stay. DISPOSITION-anticipate discharge to home after the hospital stay. PRIMARY CARE PROVIDER-Dr. Fernandez
[2019-08-10] MEDS: LORazepam 1 MG Tab PO PRN (17:40)
[2019-08-10] MEDS: guaiFENesin/Dextromethorphan 100-10 MG/5 ML Soln 10 ML Cup PO PRN ×2 (17:40→21:52)
[2019-08-10] MEDS: Doxycycline 100 MG Cap PO SCH (20:19)
[2019-08-10] MEDS: Mirtazapine 15 MG Tab PO SCH (20:19)
[2019-08-10] MEDS: Montelukast 10 MG Tab PO SCH (20:19)
[2019-08-11] MEDS: Albuterol 0.083% 2.5 MG/3 ML Neb Soln NEB PRN (03:39)
[2019-08-11] MEDS: Budesonide 0.5 MG/2 ML Neb Susp INH SCH (07:32)
[2019-08-11] MEDS: Albuterol/Ipratropium 3.0-0.5 MG/3 ML Neb Soln NEB SCH (07:32)
[2019-08-11 08:05] VITALS: BP 124/78; PULSE 78
--- NOTE | 2019-08-11 08:35 | PCM.DCSUM1 ---
Discharge Summary - Hospital Course Brief History: Ms. Marti is a 59-year-old woman who was admitted through the emergency department with hypoxia secondary to COPD exacerbation and underlying bronchitis. - Discharge Data Discharge Date: 08/11/19 Discharge Disposition: DC/Tfer to SNF 03 Condition: Fair - Referral to Home Health Primary Care Physician: Christian Fernandez MD - Discharge Diagnosis/Problem(s) (1) Bronchitis SNOMED Code(s): 51734077 ICD Code: J40 - BRONCHITIS, NOT SPECIFIED ACUTE OR CHRONIC Status: Acute Current Visit: Yes (2) Hypoxia SNOMED Code(s): 292392358 ICD Code: R09.02 - HYPOXEMIA Status: Acute Current Visit: Yes (3) COPD with acute exacerbation SNOMED Code(s): 171619707 ICD Code: J44.1 - CHRONIC OBSTRUCTIVE PULMONARY DISEASE W (ACUTE) EXACERBATION Status: Acute Current Visit: Yes (4) Tetralogy of Fallot s/p repair SNOMED Code(s): 39475131641183, 62878354691972 ICD Code: Z87.74 - PERSONAL HISTORY OF CONGENITAL MALFORM OF HEART AND CIRC SYS Status: Chronic Current Visit: Yes - Patient Summary/Data Hospital Course: Ms. Marti is a 59-year-old woman who was admitted through the emergency department with cough and increased shortness of breath secondary to COPD exacerbation and underlying bronchitis. She has a history of significant cardiac disease with underlying coronary artery disease as well as congenital tetralogy of Fallot. Over the last 2 days she is developed increased shortness of breath and cough. On evaluation in the emergency department she was found to be hypoxic. White blood cell count was within normal range and chest x-ray showed no obvious infiltrate. On admission she was given IV fluids for hydration. IV antibiotic therapy was initiated with ceftriaxone and azithromycin. Nebulizer therapy was ordered and she was also placed on Solu- Medrol 40 mg every 6 hours. Over the next 2 days of hospitalization she improved with less shortness of breath and cough. She will remain on supplemental oxygen as needed at 2 L/min via nasal cannula. Prior to discharge she was transitioned to oral antibiotic therapy with doxycycline 100 mg p.o. twice daily. She will complete an additional 3 days of antibiotic therapy. She did not have much wheezing noted during hospitalization and Solu-Medrol was discontinued on the second day. She was noted to have difficulty with hypotension and bradycardia which was thought secondary to medication effect. Triamterene hydrochlorothiazide and metoprolol were held during hospitalization and will be discontinued on discharge. Activity will be as tolerated and she will remain on a low-sodium diet. Follow-up will be at the [facility] with primary care as needed. - Patient Instructions Diet: Low Sodium Activity: As Tolerated - Discharge Plan *PRESCRIPTION DRUG MONITORING PROGRAM REVIEWED*: Not Applicable *COPY OF PRESCRIPTION DRUG MONITORING REPORT IN PATIENT ABELINO: Not Applicable Prescriptions/Med Rec: Doxycycline [Vibramycin] 100 mg PO BID #6 cap Nystatin 15 gm TP QID #15 powder Home Medications: Home Meds ALPRAZolam [Alprazolam] 1 mg PO TID 03/19/14 [History] Albuterol [Proventil Neb Soln] 1 ampule IH Q4H PRN 03/19/14 [History] Budesonide [Pulmicort] 0.5 mg IH BID 03/19/14 [History] Citalopram Hydrobromide [Citalopram HBr] 40 mg PO DAILY 03/19/14 [History] Loratadine [Claritin] 10 mg PO DAILY 03/19/14 [History] Montelukast [Singulair] 10 mg PO DAILY 03/19/14 [History] Multivitamin [Multiple Vitamins] 1 tab PO DAILY 03/19/14 [History] Pseudoephedrine HCl [Nexafed] 30 mg PO TID 03/19/14 [History] Albuterol [Ventolin HFA] 2 puff INH Q4H PRN 05/26/17 [History] Nystatin 1 appful TOP BID 05/26/17 [History] guaiFENesin [Robafen] 10 ml PO Q4H PRN 05/26/17 [History] Acetaminophen [Acetaminophen ER] 500 mg PO QID 12/26/17 [History] Nystatin 1 each TOP ASDIRECTED PRN 12/26/17 [History] Sennosides/Docusate Sodium [Senna Plus Tablet] 2 tab PO Q12HR PRN 12/26/17 [ History] traMADol HCl [Tramadol HCl] 50 mg PO QID PRN 12/26/17 [History] Ipratropium/Albuterol Sulfate [Iprat-Albut 0.5-3(2.5) MG/3 ML] 3 ml IH QID 01/07 [History] Mirtazapine [Remeron] 7.5 mg PO BEDTIME 01/07/19 [History] busPIRone [Buspar] 15 mg PO BID 01/07/19 [History] Aspirin [Adult Low Dose Aspirin EC] 81 mg PO DAILY 08/09/19 [History] Fluticasone Propionate [Flovent] 50 mcg IH BID 08/09/19 [History] Furosemide [Lasix] 40 mg PO DAILY 08/09/19 [History] guaiFENesin/Codeine Phosphate [Guaifenesin AC Cough Syrup] 400 mg PO Q4H PRN 04/20 [History] Doxycycline [Vibramycin] 100 mg PO BID #6 cap 08/11/19 [Rx] Nystatin 15 gm TP QID #15 powder 08/11/19 [Rx] Oxygen Therapy Mode: Nasal Cannula Oxygen Flow Rate (L/min): 2 Referrals: Christian Fernandez MD [Primary Care Provider] - - Discharge Summary/Plan Comment DC Time >30 min.: No - Patient Data Vitals - Most Recent: Last Vital Signs Temp 97.8 F 08/11/19 08:04 Pulse 78 08/11/19 08:04 Resp 20 08/11/19 08:04 BP 124/78 08/11/19 08:04 Pulse Ox 91 L 08/11/19 08:04 Weight - Most Recent: 205 lb I&O - Last 24 hours: Intake & Output 08/10/19 08/11/19 08/11/19 22:59 06:59 14:59 Intake Total 1420 Output Total 750 1550 200 Balance 670 -1550 -200 Med Orders - Current: Current Medications Acetaminophen (Tylenol) 650 mg PO Q4H PRN PRN Reason: Pain (Mild 1-3)/fever Last Admin: 08/10/19 11:07 Dose: 650 mg Albuterol (Proventil Neb Soln) 2.5 mg NEB Q4H PRN PRN Reason: Shortness Of Breath/wheezing Last Admin: 08/11/19 03:39 Dose: 2.5 mg Albuterol/Ipratropium (Duoneb 3.0-0.5 Mg/3 Ml) 3 ml NEB QIDRT [facility]ARIO Last Admin: 08/11/19 07:32 Dose: 3 ml Alprazolam (Xanax) 1 mg PO TID [facility] Last Admin: 08/10/19 13:32 Dose: 1 mg Aspirin (Halfprin) 81 mg PO DAILY [facility] Last Admin: 08/10/19 08:53 Dose: 81 mg Budesonide (Pulmicort) 0.5 mg INH BIDRT [facility] Last Admin: 08/11/19 07:32 Dose: 0.5 mg Buspirone HCl 10 mg/ Buspirone (HCl 5 mg) 15 mg PO BID [facility] Last Admin: 08/10/19 20:18 Dose: 15 mg Citalopram Hydrobromide (Celexa) 40 mg PO DAILY [facility] Last Admin: 08/10/19 08:53 Dose: 40 mg Doxycycline Hyclate (Vibramycin) 100 mg PO BID [facility] Last Admin: 08/10/19 20:19 Dose: 100 mg Enoxaparin Sodium (Lovenox) 40 mg SUBCUT Q24H [facility] Last Admin: 08/10/19 11:35 Dose: 40 mg Guaifenesin/Dextromethorphan (Robitussin Dm) 10 ml PO Q4H PRN PRN Reason: Cough Last Admin: 08/10/19 21:52 Dose: 10 ml Loratadine (Claritin) 10 mg PO DAILY [facility] Last Admin: 08/10/19 08:53 Dose: 10 mg Lorazepam (Ativan) 1 mg PO Q4H PRN PRN Reason: Anxiety Last Admin: 08/10/19 17:40 Dose: 1 mg Mirtazapine (Remeron) 7.5 mg PO BEDTIME [facility] Last Admin: 08/10/19 20:19 Dose: 7.5 mg Montelukast Sodium (Singulair) 10 mg PO BEDTIME [facility] Last Admin: 08/10/19 20:19 Dose: 10 mg Ondansetron HCl (Zofran) 4 mg IV Q4H PRN PRN Reason: Nausea/Vomiting Polyethylene Glycol (Miralax) 17 gm PO DAILY PRN PRN Reason: Constipation Pseudoephedrine HCl (Sudogest) 30 mg PO TID [facility] Last Admin: 08/10/19 20:19 Dose: 30 mg Sodium Chloride (Saline Flush) 10 ml FLUSH ASDIRECTED PRN PRN Reason: Keep Vein Open Tramadol HCl (Ultram) 50 mg PO QID PRN PRN Reason: Pain Last Admin: 08/10/19 12:24 Dose: 50 mg Discontinued Medications Acetaminophen (Tylenol Extra Strength) 1,000 mg PO ONETIME ONE Stop: 08/09/19 05:27 Last Admin: 08/09/19 06:12 Dose: 1,000 mg Furosemide (Lasix) 40 mg IVPUSH ONETIME ONE Stop: 08/09/19 05:59 Last Admin: 08/09/19 06:13 Dose: 40 mg Furosemide (Lasix) 40 mg PO DAILY [facility] Last Admin: 08/10/19 09:41 Dose: Not Given Guaifenesin/Codeine Phosphate (Robitussin Ac) 10 ml PO Q4H PRN PRN Reason: Cough Last Admin: 08/10/19 11:17 Dose: 10 ml Azithromycin 500 mg/ Sodium (Chloride) 250 mls @ 250 mls/hr IV ONETIME ONE Stop: 08/09/19 06:57 Last Admin: 08/09/19 06:13 Dose: 250 mls/hr Potassium Chloride/Sodium Chloride (Normal Saline With 20 Meq Kcl) 1,000 mls @ 500 mls/hr IV ASDIRECTED [facility] Last Admin: 08/09/19 07:58 Dose: 500 mls/hr Azithromycin 500 mg/ Sodium (Chloride) 250 mls @ 250 mls/hr IV Q24H [facility] Last Admin: 08/10/19 05:40 Dose: 250 mls/hr Ceftriaxone Sodium 1 gm/ (Sodium Chloride) 50 mls @ 100 mls/hr IV Q24H [facility] Last Admin: 08/10/19 11:06 Dose: 100 mls/hr Sodium Chloride (Normal Saline) 1,000 mls @ 75 mls/hr IV ASDIRECTED [facility] Last Admin: 08/10/19 09:38 Dose: 75 mls/hr Sodium Chloride (Normal Saline) 1,000 mls @ 500 mls/hr IV ASDIRECTED [facility] Stop: 08/09/19 12:44 Last Admin: 08/09/19 11:13 Dose: 500 mls/hr Sodium Chloride (Normal Saline) 500 mls @ 500 mls/hr IV BOLUS ONE Stop: 08/10/19 09:29 Last Admin: 08/10/19 08:40 Dose: 500 mls/hr Methylprednisolone Sodium Succinate (Solu-Medrol) 125 mg IVPUSH ONETIME ONE Stop: 08/09/19 05:59 Last Admin: 08/09/19 06:12 Dose: 125 mg Methylprednisolone Sodium Succinate (Solu-Medrol) 40 mg IVPUSH Q6H [facility] Last Admin: 08/10/19 11:35 Dose: 40 mg Metoprolol Succinate (Toprol Xl) 12.5 mg PO DAILY [facility] Last Admin: 08/10/19 09:42 Dose: Not Given Potassium Chloride (Potassium Chloride) 40 meq PO ONETIME ONE Stop: 08/09/19 07:51 Last Admin: 08/09/19 07:58 Dose: 40 meq Potassium Chloride (Klor-Con M20) 40 meq PO ONETIME ONE Stop: 08/09/19 10:01 Last Admin: 08/09/19 10:46 Dose: 40 meq Sodium Chloride (Saline Flush) 10 ml FLUSH ASDIRECTED PRN PRN Reason: Keep Vein Open Last Admin: 08/09/19 05:37 Dose: 10 ml Triamterene/HCTZ (Maxzide 25-37.5 Mg) 1 each PO DAILY [facility] Last Admin: 08/10/19 09:42 Dose: Not Given - Exam Quality Assessment: Reports: DVT Prophylaxis General: Reports: Alert, Oriented, Cooperative, No Acute Distress Lungs: Reports: Decreased Breath Sounds. Denies: Crackles, Rales, Rhonchi, Wheezing Cardiovascular: Reports: Regular Rate, Regular Rhythm, No Murmurs GI/Abdominal Exam: Soft, Non-Tender, No Organomegaly, No Distention Extremities: Non-Tender, No Pedal Edema
[2019-08-11] MEDS: busPIRone 10 MG, busPIRone 5 MG PO SCH ×2 (08:39)
[2019-08-11] MEDS: Pseudoephedrine 30 MG Tab PO SCH (08:39)
[2019-08-11] MEDS: Citalopram 20 MG Tab PO SCH (08:39)
[2019-08-11] MEDS: Loratadine 10 MG Tab PO SCH (08:40)
[2019-08-11] MEDS: Doxycycline 100 MG Cap PO SCH (08:40)
[2019-08-11] MEDS: Aspirin 81 MG Tab.EC PO SCH (08:40)
[2019-08-11] MEDS: LORazepam 1 MG Tab PO PRN (08:45)
== END 2019-08-11 09:30 | DRG 190 ==
LOC: JP.ED 05:04 → JP.MS 07:57
PROVIDERS: ADMIT Hospitalist; ATTEND Hospitalist
DX: J44.1 Chronic obstructive pulmonary disease with (acute) exacerbation (principal); Q21.3 Tetralogy of Fallot; Z68.41 Body mass index [BMI] 40.0-44.9, adult; I25.10 Atherosclerotic heart disease of native coronary artery without angina pectoris; H91.90 Unspecified hearing loss, unspecified ear; I10 Essential (primary) hypertension; Z99.81 Dependence on supplemental oxygen; F81.9 Developmental disorder of scholastic skills, unspecified; R62.50 Unspecified lack of expected normal physiological development in childhood; Z66 Do not resuscitate; D64.9 Anemia, unspecified; K21.9 Gastro-esophageal reflux disease without esophagitis; M19.90 Unspecified osteoarthritis, unspecified site; Z88.1 Allergy status to other antibiotic agents; F41.9 Anxiety disorder, unspecified; I95.9 Hypotension, unspecified; R00.1 Bradycardia, unspecified; T44.7X5A Adverse effect of beta-adrenoreceptor antagonists, initial encounter; T50.2X5A Adverse effect of carbonic-anhydrase inhibitors, benzothiadiazides and other diuretics, initial encounter; E66.9 Obesity, unspecified; F60.9 Personality disorder, unspecified; Z98.49 Cataract extraction status, unspecified eye; Z90.49 Acquired absence of other specified parts of digestive tract; Z88.8 Allergy status to other drugs, medicaments and biological substances; Z88.0 Allergy status to penicillin; Z88.2 Allergy status to sulfonamides; Z79.51 Long term (current) use of inhaled steroids; Z79.82 Long term (current) use of aspirin; Z79.899 Other long term (current) drug therapy; Z98.890 Other specified postprocedural states
CPT/HCPCS: 36415; 71046; 80048; 83735; 85025; 87804 ×2; A9270; J0456; J1940; J2930; J7050; 94640; 94762; 96365; 96375; 99285; 99285-25; J0696; J1650; J2920; J3480; J7030; J7620-GY

== ENCOUNTER 2019-08-11 18:51 | Observation (INO) | payer MEDICARE, MEDICAID ==
[2019-08-11] MEDS ORDERED: Albuterol 0.083% 2.5 MG/3 ML Neb Soln NEB ONE (19:13)
--- NOTE | 2019-08-11 19:19 | EDM.PDOC ---
ED HPI GENERAL MEDICAL PROBLEM - General Chief Complaint: Respiratory Problem Stated Complaint: [facility] Time Seen by Provider: 08/11/19 19:05 Source of Information: Reports: Patient, EMS, Old Records, RN History Limitations: Reports: No Limitations - History of Present Illness INITIAL COMMENTS - FREE TEXT/NARRATIVE: 59 yo female went home from the hospital this morning after a couple day admission for SOB. She was discharged on doxycycline. Is coughing up more colored sputum this evening than before. Is not running a fever. [facility] staff had to increase her oxygen from 2 to 3 liters/min/nc. Seems more wheezy than before. Had a Duoneb about 45 min before arrival. Onset: Gradual Duration: Hour(s):, Day(s):, Getting Worse Location: Reports: Chest Quality: Reports: Other (pain not reported) Severity: Moderate Improves with: Reports: Other (oxygen increase) Worsens with: Reports: Other (time) Context: Reports: Other (see HPI) Associated Symptoms: Reports: Cough, Shortness of Breath. Denies: Fever/Chills Treatments UX INFORMATION ARCHITECT: Reports: Other (see below) (see HPI) headache Pain Score (Numeric/FACES): 2 - Related Data Allergies Allergy/AdvReac Type Severity Reaction Status Date / Time aspirin Allergy Cannot Verified 08/11/19 18:57 Remember cefaclor [From Ceclor] Allergy Cannot Verified 08/11/19 18:57 Remember Penicillins Allergy Rash Verified 08/11/19 18:57 Sulfa (Sulfonamide Allergy Rash Verified 08/11/19 18:57 Antibiotics) Home Meds: Home Meds ALPRAZolam [Alprazolam] 1 mg PO TID 03/19/14 [History] Albuterol [Proventil Neb Soln] 1 ampule IH Q4H PRN 03/19/14 [History] Budesonide [Pulmicort] 0.5 mg IH BID 03/19/14 [History] Citalopram Hydrobromide [Citalopram HBr] 40 mg PO DAILY 03/19/14 [History] Loratadine [Claritin] 10 mg PO DAILY 03/19/14 [History] Montelukast [Singulair] 10 mg PO DAILY 03/19/14 [History] Multivitamin [Multiple Vitamins] 1 tab PO DAILY 03/19/14 [History] Pseudoephedrine HCl [Nexafed] 30 mg PO TID 03/19/14 [History] Albuterol [Ventolin HFA] 2 puff INH Q4H PRN 05/26/17 [History] Nystatin 1 appful TOP BID 05/26/17 [History] guaiFENesin [Robafen] 10 ml PO Q4H PRN 05/26/17 [History] Acetaminophen [Acetaminophen ER] 500 mg PO QID 12/26/17 [History] Nystatin 1 each TOP ASDIRECTED PRN 12/26/17 [History] Sennosides/Docusate Sodium [Senna Plus Tablet] 2 tab PO Q12HR PRN 12/26/17 [ History] traMADol HCl [Tramadol HCl] 50 mg PO QID PRN 12/26/17 [History] Ipratropium/Albuterol Sulfate [Iprat-Albut 0.5-3(2.5) MG/3 ML] 3 ml IH QID 01/07 [History] Mirtazapine [Remeron] 7.5 mg PO BEDTIME 01/07/19 [History] busPIRone [Buspar] 15 mg PO BID 01/07/19 [History] Aspirin [Adult Low Dose Aspirin EC] 81 mg PO DAILY 08/09/19 [History] Fluticasone Propionate [Flovent] 50 mcg IH BID 08/09/19 [History] Furosemide [Lasix] 40 mg PO DAILY 08/09/19 [History] guaiFENesin/Codeine Phosphate [Guaifenesin AC Cough Syrup] 400 mg PO Q4H PRN 04/20 [History] Doxycycline [Vibramycin] 100 mg PO BID #6 cap 08/11/19 [Rx] Nystatin 15 gm TP QID #15 powder 08/11/19 [Rx] Past Medical History HEENT History: Reports: Cataract, Hard of Hearing Other HEENT History: Cataract on right. 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: Musculoskeletal History: Reports: Arthritis Neurological History: Reports: Headaches, Chronic Psychiatric History: Reports: Anxiety, Developmental Delay, Learning Disability , Other (See Below) Other Psychiatric History: personality disorder Endocrine/Metabolic History: Reports: Obesity/BMI 30+ Hematologic History: Reports: Anemia, Blood Transfusion(s) - Infectious Disease History Infectious Disease History: Reports: Chicken Pox - Past Surgical History HEENT Surgical History: Reports: Cataract Surgery, Oral Surgery Cardiovascular Surgical History: Reports: Other (See Below) Other Cardiovascular Surgeries/Procedures: open heart surg when [age]. mitral valve insuficiency, tricuspid valve desease cardiomegaly GI Surgical History: Reports: Cholecystectomy, EGD, Hernia, Inguinal Female Surgical History: Reports: Breast Biopsy Neurological Surgical History: Reports: Scoliosis Other Musculoskeletal Surgeries/Procedures:: right knee three screws Social & Family History - Family History Family Medical History: Noncontributory - Tobacco Use Smoking Status *Q: Never Smoker - Caffeine Use Caffeine Use: Reports: Coffee, Soda Other Caffeine Use: 1-4 coffee's per/day. - Recreational Drug Use Recreational Drug Use: No ED ROS GENERAL - Review of Systems Review Of Systems: See Below Constitutional: Reports: No Symptoms HEENT: Reports: No Symptoms Respiratory: Reports: Shortness of Breath, Wheezing, Cough, Sputum. Denies: Pleuritic Chest Pain, Hemoptysis Cardiovascular: Reports: No Symptoms GI/Abdominal: Reports: No Symptoms : Reports: No Symptoms Musculoskeletal: Reports: No Symptoms Skin: Reports: No Symptoms Neurological: Reports: No Symptoms ED EXAM, GENERAL - Physical Exam Exam: See Below Exam Limited By: No Limitations General Appearance: Alert, WD/WN, Mild Distress Eye Exam: Bilateral Eye: Normal Inspection Ears: Normal External Exam, Normal Canal, Hearing Grossly Normal, Normal TMs Ear Exam: Bilateral Ear: Auricle Normal, Canal Normal, TM normal Nose: Normal Inspection, No Blood Throat/Mouth: Normal Inspection, Normal Lips, Normal Oropharynx, Normal Voice, No Airway Compromise Head: Atraumatic, Normocephalic Neck: Normal Inspection Respiratory/Chest: Decreased Breath Sounds, Wheezing, Accessory Muscle Use. No : No Respiratory Distress, Lungs Clear, Normal Breath Sounds, No Accessory Muscle Use, Rhonchi Cardiovascular: Regular Rate, Rhythm, No Edema GI/Abdominal: Normal Bowel Sounds, Soft, Non-Tender, No Distention Back Exam: Normal Inspection Extremities: Normal Inspection Neurological: Alert, Oriented, CN II-XII Intact, Normal Cognition, No Motor/ Sensory Deficits Psychiatric: Normal Affect, Normal Mood Skin Exam: Warm, Dry, Intact, Normal Color, No Rash Course - Vital Signs Last Recorded V/S: Last Vital Signs Temp 35.7 C 08/11/19 19:02 Pulse 97 08/11/19 19:02 Resp 21 H 08/11/19 19:02 BP 123/79 08/11/19 19:02 Pulse Ox 95 08/11/19 19:02 - Orders/Labs/Meds Orders: Active Orders 24 hr Category Date Time Status RT Aerosol Therapy [RC] ASDIRECTED Care 08/11/19 19:13 Active Chest 2V [CR] Stat Exams 08/11/19 19:13 Ordered BASIC METABOLIC PANEL,BMP [CHEM] Stat Lab 08/11/19 19:24 Received CULTURE RESPIRATORY + SMEAR [RM] Stat Lab 08/11/19 19:45 Ordered TROPONIN I [CHEM] Stat Lab 08/11/19 19:24 Received Labs: Laboratory Tests 08/11/19 Range/Units 19:24 WBC 6.3 (4.5-11.0) K/uL RBC 4.59 (3.30-5.50) M/uL Hgb 10.7 L (12.0-15.0) g/dL Hct 37.5 (36.0-48.0) % MCV 82 (80-98) fL MCH 23 L (27-31) pg MCHC 29 L (32-36) % Plt Count 157 (150-400) K/uL Meds: Medications Discontinued Medications Generic Name Dose Route Start Last Admin Trade Name Freq PRN Reason Stop Dose Admin Albuterol 2.5 mg 08/11/19 19:13 Proventil Neb Soln NEB 08/11/19 19:14 ONETIME ONE - Radiology Interpretation Free Text/Narrative:: CXR- Departure - Departure Time of Disposition: 20:00 Disposition: Refer to Observation Condition: Fair Clinical Impression: COPD exacerbation - Discharge Information *PRESCRIPTION DRUG MONITORING PROGRAM REVIEWED*: No *COPY OF PRESCRIPTION DRUG MONITORING REPORT IN PATIENT ABELINO: No Referrals: Christian Fernandez MD [Primary Care Provider] - Forms: ED Department Discharge Sepsis Event Note - Evaluation Sepsis Screening Result: Possible Sepsis Risk - Focused Exam Vital Signs: Vital Signs Temp Pulse Resp BP Pulse Ox 08/11/19 19:02 35.7 C 97 21 H 123/79 95 08/11/19 18:58 35.7 C 97 21 H 123/79 95 Date Exam was Performed: 08/11/19 Time Exam was Performed: 19:47 - My Orders Last 24 Hours: My Active Orders 08/11/19 19:13 RT Aerosol Therapy [RC] ASDIRECTED Chest 2V [CR] Stat 08/11/19 19:24 BASIC METABOLIC PANEL,BMP [CHEM] Stat TROPONIN I [CHEM] Stat 08/11/19 19:45 CULTURE RESPIRATORY + SMEAR [RM] Stat - Assessment/Plan Last 24 Hours: My Active Orders 08/11/19 19:13 RT Aerosol Therapy [RC] ASDIRECTED Chest 2V [CR] Stat 08/11/19 19:24 BASIC METABOLIC PANEL,BMP [CHEM] Stat TROPONIN I [CHEM] Stat 08/11/19 19:45 CULTURE RESPIRATORY + SMEAR [RM] Stat
[2019-08-11] MEDS ORDERED: LORazepam 2 MG/ML SDV IVPUSH ONE (19:51)
[2019-08-11] MEDS ORDERED: methylPREDNISolone Sodium Succinate 40 MG/1 ML SDV IVPUSH ONE (19:52)
[2019-08-11] MEDS ORDERED: Levofloxacin/Dextrose 5%-Water 750 MG in Premix Bag 1 BAG IV ONE (19:53)
--- NOTE | 2019-08-11 20:18 | CRLCR ---
HISTORY: Shortness of breath and cough. COMPARISON: 08/09/2019 FINDINGS: A portable erect AP view of the chest was obtained at 20 07 hours. The lungs remain clear. No focal or diffuse infiltrates are present. The heart remains moderately enlarged. Again seen are sternal wires from median sternotomy. The mediastinum is otherwise normal in appearance. Again seen is mild scoliosis of the thoracolumbar spine convex towards the right. A left-sided Sun elissa is seen used in distraction, extending from the mid thoracic spine into the lumbar spine. IMPRESSION: No active disease seen in the chest. No change in moderate cardiomegaly without congestive failure. Dictated by Philip Giles MD @ Aug 11 2019 8:14PM Signed by Dr. Philip Giles @ Aug 11 2019 8:16PM
[2019-08-11] MEDS: Sodium Chloride 0.9% 1,000 ML IV SCH (20:24)
--- NOTE | 2019-08-11 20:38 | PCM.HP.2 ---
H&P History of Present Illness - General Date of Service: 08/11/19 Admit Problem/Dx: Admission Diagnosis/Problem Admission Diagnosis/Problem COPD, Severe chronic obstructive pulmonary disease Source of Information: Patient, EMS, Family (Sister), Provider, RN History Limitations: Reports: No Limitations, Respiratory Distress - History of Present Illness Initial Comments - Free Text/Narative: 59 yo female went home from the hospital this morning after a couple day admission for SOB. She was discharged on doxycycline. Is coughing up more colored sputum this evening than before. Is not running a fever. [facility] staff had to increase her oxygen from 2 to 3 liters/min/nc. Seems more wheezy than before. Had a Duoneb about 45 min before arrival. CXR- IMPRESSION:No active disease seen in the chest. No change in moderate cardiomegaly without congestive failure. Onset of Symptoms: Reports: Today, Gradual Duration of Symptoms: Reports: Hour(s): (wheezing increasing this afternoon.) Location: Reports: Chest Quality: Reports: Same as Previous Episode Improves with: Reports: Medication (nebulizer treatment) Worsens with: Reports: None Context: Reports: Other (recent hospitalization from to 08-11-19) Associated Symptoms: Reports: Cough, Headaches, Shortness of Breath headache Pain Score (Numeric/FACES): 2 - Related Data Allergies/Adverse Reactions: Allergies Allergy/AdvReac Type Severity Reaction Status Date / Time aspirin Allergy Cannot Verified 08/11/19 18:57 Remember cefaclor [From Ceclor] Allergy Cannot Verified 08/11/19 18:57 Remember Penicillins Allergy Rash Verified 08/11/19 18:57 Sulfa (Sulfonamide Allergy Rash Verified 08/11/19 18:57 Antibiotics) Home Medications: Home Meds ALPRAZolam [Alprazolam] 1 mg PO TID 03/19/14 [History] Albuterol [Proventil Neb Soln] 1 ampule IH Q4H PRN 03/19/14 [History] Budesonide [Pulmicort] 0.5 mg IH BID 03/19/14 [History] Citalopram Hydrobromide [Citalopram HBr] 40 mg PO DAILY 03/19/14 [History] Loratadine [Claritin] 10 mg PO DAILY 03/19/14 [History] Montelukast [Singulair] 10 mg PO DAILY 03/19/14 [History] Multivitamin [Multiple Vitamins] 1 tab PO DAILY 03/19/14 [History] Pseudoephedrine HCl [Nexafed] 30 mg PO TID 03/19/14 [History] Albuterol [Ventolin HFA] 2 puff INH Q4H PRN 05/26/17 [History] Nystatin 1 appful TOP BID 05/26/17 [History] guaiFENesin [Robafen] 10 ml PO Q4H PRN 05/26/17 [History] Acetaminophen [Acetaminophen ER] 500 mg PO QID 12/26/17 [History] Nystatin 1 each TOP ASDIRECTED PRN 12/26/17 [History] Sennosides/Docusate Sodium [Senna Plus Tablet] 2 tab PO Q12HR PRN 12/26/17 [ History] traMADol HCl [Tramadol HCl] 50 mg PO QID PRN 12/26/17 [History] Ipratropium/Albuterol Sulfate [Iprat-Albut 0.5-3(2.5) MG/3 ML] 3 ml IH QID 01/07 [History] Mirtazapine [Remeron] 7.5 mg PO BEDTIME 01/07/19 [History] busPIRone [Buspar] 15 mg PO BID 01/07/19 [History] Aspirin [Adult Low Dose Aspirin EC] 81 mg PO DAILY 08/09/19 [History] Fluticasone Propionate [Flovent] 50 mcg IH BID 08/09/19 [History] Furosemide [Lasix] 40 mg PO DAILY 08/09/19 [History] guaiFENesin/Codeine Phosphate [Guaifenesin AC Cough Syrup] 400 mg PO Q4H PRN 04/20 [History] Doxycycline [Vibramycin] 100 mg PO BID #6 cap 08/11/19 [Rx] Nystatin 15 gm TP QID #15 powder 08/11/19 [Rx] Past Medical History HEENT History: Reports: Cataract, Hard of Hearing Other HEENT History: Cataract on right. 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: Musculoskeletal History: Reports: Arthritis Neurological History: Reports: Headaches, Chronic Psychiatric History: Reports: Anxiety, Developmental Delay, Learning Disability , Other (See Below) Other Psychiatric History: personality disorder Endocrine/Metabolic History: Reports: Obesity/BMI 30+ Hematologic History: Reports: Anemia, Blood Transfusion(s) - Infectious Disease History Infectious Disease History: Reports: Chicken Pox - Past Surgical History HEENT Surgical History: Reports: Cataract Surgery, Oral Surgery Cardiovascular Surgical History: Reports: Other (See Below) Other Cardiovascular Surgeries/Procedures: open heart surg when [age]. mitral valve insuficiency, tricuspid valve desease cardiomegaly GI Surgical History: Reports: Cholecystectomy, EGD, Hernia, Inguinal Female Surgical History: Reports: Breast Biopsy Neurological Surgical History: Reports: Scoliosis Other Musculoskeletal Surgeries/Procedures:: right knee three screws Social & Family History - Family History Family Medical History: Noncontributory - Tobacco Use Smoking Status *Q: Never Smoker - Caffeine Use Caffeine Use: Reports: Coffee, Soda Other Caffeine Use: 1-4 coffee's per/day. - Recreational Drug Use Recreational Drug Use: No H&P Review of Systems - Review of Systems: Review Of Systems: See Below General: Reports: Other (shortness of breath with wheezing) HEENT: Reports: Glasses, Other (hearing aides) Pulmonary: Reports: Shortness of Breath, Wheezing, Cough, Sputum (thick green) Cardiovascular: Reports: Dyspnea on Exertion. Denies: Chest Pain Gastrointestinal: Reports: No Symptoms Genitourinary: Reports: No Symptoms Musculoskeletal: Reports: No Symptoms Skin: Reports: No Symptoms Psychiatric: Reports: No Symptoms Neurological: Reports: Pre-Existing Deficit Hematologic/Lymphatic: Reports: No Symptoms Immunologic: Reports: No Symptoms Exam - Exam Exam: See Below - Vital Signs Vital Signs: Last Vital Signs Temp 35.7 C 08/11/19 19:02 Pulse 88 08/11/19 19:52 Resp 23 H 08/11/19 19:52 BP 124/85 08/11/19 19:52 Pulse Ox 92 L 08/11/19 19:52 Weight: 90.718 kg - Exam Quality Assessment: Supplemental Oxygen, DVT Prophylaxis General: Mild Distress HEENT: PERRLA, Hearing Intact, Mucosa Moist & [place], Nares Patent, Normal Nasal Septum, Posterior Pharynx Clear, Conjunctiva Clear, EOMI, EACs Clear, TMs Clear Neck: Supple, Trachea Midline, 2 Lungs: Decreased Breath Sounds, Rhonchi, Wheezing Cardiovascular: Regular Rate, Regular Rhythm GI/Abdominal Exam: Normal Bowel Sounds, Soft, Non-Tender, No Organomegaly, No Distention, No Abnormal Bruit, No Mass (Female) Exam: Deferred Rectal (Female) Exam: Deferred Back Exam: Normal Inspection (does have a old large scar to upper spine from previous surgery.) Extremities: Normal Inspection, Normal Range of Motion, Non-Tender, No Pedal Edema, Normal Capillary Refill Skin: Warm, Dry, Intact Neurological: Reflexes Equal Bilateral, Strength Equal Bilateral Neuro Extensive - Mental Status: Alert, Oriented x3, Normal Mood/Affect, Normal Cognition Neuro Extensive - Motor, Sensory, Reflexes: Motor/Sensory Deficits Psychiatric: Alert, Normal Affect, Normal Mood, Anxious - Patient Data Lab Results Last 24 hrs: Laboratory Results - last 24 hr 08/11/19 08/11/19 Range/Units 19:24 19:24 WBC 6.3 (4.5-11.0) K/uL RBC 4.59 (3.30-5.50) M/uL Hgb 10.7 L (12.0-15.0) g/dL Hct 37.5 (36.0-48.0) % MCV 82 (80-98) fL MCH 23 L (27-31) pg MCHC 29 L (32-36) % Plt Count 157 (150-400) K/uL Sodium 140 (140-148) mmol/L Potassium 3.4 L (3.6-5.2) mmol/L Chloride 103 (100-108) mmol/L Carbon Dioxide 32 (21-32) mmol/L Anion Gap 8.4 (5.0-14.0) mmol/L BUN 8 (7-18) mg/dL Creatinine 0.6 (0.6-1.0) mg/dL Est Cr Clr Drug Dosing 71.62 mL/min Estimated GFR (MDRD) > 60 (>60) Glucose 92 (74-106) mg/dL Calcium 7.8 L (8.5-10.1) mg/dL Troponin I 0.025 (0.000-0.056) ng/mL Result Diagrams: 08/11/19 19:24 08/11/19 19:24 Micheal Results Last 24 hrs: Microbiology 08/11/19 19:45 Gram Stain - Final Sputum - Expectorated Sepsis Event Note - Evaluation Sepsis Screening Result: Possible Sepsis Risk - Focused Exam Vital Signs: Vital Signs Temp Pulse Resp BP Pulse Ox 08/11/19 19:52 88 23 H 124/85 92 L 08/11/19 19:23 86 25 H 127/89 96 08/11/19 19:02 35.7 C 97 21 H 123/79 95 08/11/19 18:58 35.7 C 97 21 H 123/79 95 Date Exam was Performed: 08/11/19 Time Exam was Performed: 20:55 - Problem List (1) COPD exacerbation SNOMED Code(s): 681426954 ICD Code: J44.1 - CHRONIC OBSTRUCTIVE PULMONARY DISEASE W (ACUTE) EXACERBATION Status: Acute Priority: High Current Visit: Yes (2) Tetralogy of Fallot s/p repair SNOMED Code(s): 83070243890026, 75685377002414 ICD Code: Z87.74 - PERSONAL HISTORY OF CONGENITAL MALFORM OF HEART AND CIRC SYS Status: Chronic Priority: Low Current Visit: No (3) Anxiety SNOMED Code(s): 55559900 ICD Code: F41.9 - ANXIETY DISORDER, UNSPECIFIED Status: Acute Priority: Medium Current Visit: Yes Problem List Initiated/Reviewed/Updated: Yes Orders Last 24hrs: Active Orders 24 hr Category Date Time Status Patient Status Manage Transfer [TRANSFER] Routine ADT 08/11/19 20:03 Active RT Aerosol Therapy [RC] ASDIRECTED Care 08/11/19 19:13 Active CULTURE RESPIRATORY + SMEAR [RM] Stat Lab 08/11/19 19:45 Results Levofloxacin/Dextrose 5%-Water [Levaquin in D5W 750 MG/ Med 08/11/19 19:53 Active 150 ML] 750 mg Premix Bag 1 bag IV ONETIME Sodium Chloride 0.9% [Normal Saline] 1,000 ml Med 08/11/19 20:00 Active IV ASDIRECTED Resuscitation Status Routine Resus Stat 08/11/19 20:05 Ordered Medication Orders Levofloxacin/Dextrose 750 mg/ (Premix) 150 mls @ 100 mls/hr IV ONETIME ONE Stop: 08/11/19 21:22 Last Admin: 08/11/19 20:23 Dose: 100 mls/hr Sodium Chloride (Normal Saline) 1,000 mls @ 75 mls/hr IV ASDIRECTED WAY[place] Assessment/Plan Comment:: ASSESSMENT / PLAN: 59 yo female went home from the hospital this morning after a couple day admission for SOB. She was discharged on doxycycline. Is coughing up more colored sputum this evening than before. Is not running a fever. [facility] staff had to increase her oxygen from 2 to 3 liters/min/nc. Seems more wheezy than before. Had a Duoneb about 45 min before arrival. CXR- IMPRESSION:No active disease seen in the chest. No change in moderate cardiomegaly without congestive failure. PLAN: will admit observation status for IV fluids, medication, am labs. COPD -Admit Observation 2 [place] for further monitoring -IV Fluids for rehydration NS at 75 mL per hour -IV Antibiotic Levaquin 750 mg IV every 24 hours -IV Solu-medrol 40mg every 6 hours -Robitussin AC 10ml every 4 hours wayne -Nebulized Albuterol and Duo-Nebs -supplemental oxygen as needed to keep oxygen sat >92% -Continuous pulse oximetery -Advise to notify nurses of any chest pain or other symptoms -sputum culture pending -And a.m. labs: CBC, BMP TETROLOGY OF FALLOT -continue outpatient medications. ANXIETY -IV Ativan 1 mg every 4 hours as needed for anxiety-panic symptoms. -continue home medications Maintenance issues -Orders home meds: ordered -Nutrition: consistent carb diet -Sharma catheter: not indicated at this time -DVT: Lovenox 40 mg subcut -PPI; IV Protonix 40mg daily -consult Spiritual CODE STATUS: FULL Admission status: Admit to Observation 2 [place] -I expect this patient to stay less than 24 hours, not to exceed 96 hours for evaluation and management of this problem. Disposition:[place], [place]. Primary care provider: Dr. Fernandez Hospitalist: Dr. Momin - Mortality Measure Prognosis:: Good
[2019-08-11] MEDS ORDERED: Ondansetron 4 MG/2 ML SDV IV PRN (20:46)
[2019-08-11] MEDS ORDERED: Non-Formulary Medication 1 Each (Nystatin [Nystatin] 1 EACH) TOP PRN (20:46)
[2019-08-11] MEDS ORDERED: Ondansetron 4 MG Tab.DIS PO PRN (20:46)
[2019-08-11] MEDS ORDERED: Acetaminophen/HYDROcodone 325-5 MG Tab PO PRN (20:46)
[2019-08-11] MEDS ORDERED: busPIRone 10 MG Tab PO SCH (21:00)
[2019-08-11] MEDS: Albuterol 0.083% 2.5 MG/3 ML Neb Soln NEB PRN (22:31)
[2019-08-11] MEDS: Codeine/guaiFENesin 100mg-10 MG/5 ML Syrup 10 ML Cup PO SCH (22:36)
[2019-08-11] MEDS: Mirtazapine 15 MG Tab PO SCH (22:40)
[2019-08-11] MEDS: ALPRAZolam 0.5 MG Tab PO SCH (22:40)
[2019-08-11] MEDS: Nystatin Topical Powder 15 GM Bottle TOP SCH (22:42)
[2019-08-12] MEDS: Albuterol/Ipratropium 3.0-0.5 MG/3 ML Neb Soln NEB SCH ×6 (01:57→20:09)
[2019-08-12] MEDS: methylPREDNISolone Sodium Succinate 40 MG/1 ML SDV IVPUSH SCH ×2 (01:57→08:53)
[2019-08-12] MEDS: Codeine/guaiFENesin 100mg-10 MG/5 ML Syrup 10 ML Cup PO SCH ×3 (01:57→09:02)
[2019-08-12] MEDS: LORazepam 2 MG/ML SDV IVPUSH PRN ×2 (02:11→18:22)
[2019-08-12] MEDS: Nystatin Topical Powder 15 GM Bottle TOP SCH ×4 (05:15→21:31)
[2019-08-12] MEDS: Albuterol 0.083% 2.5 MG/3 ML Neb Soln NEB PRN ×2 (05:15→22:13)
[2019-08-12] MEDS: Sodium Chloride 0.9% 1,000 ML IV SCH (08:56)
[2019-08-12] MEDS: Montelukast 10 MG Tab PO SCH (08:58)
[2019-08-12] MEDS: Citalopram 20 MG Tab PO SCH (08:59)
[2019-08-12] MEDS: Furosemide 40 MG Tab PO SCH (08:59)
[2019-08-12] MEDS: busPIRone 5 MG Tab PO SCH ×2 (08:59→20:10)
[2019-08-12] MEDS: Enoxaparin 40 MG/0.4 ML Syringe SUBCUT SCH (08:59)
[2019-08-12] MEDS: ALPRAZolam 0.5 MG Tab PO SCH ×3 (09:02→20:14)
--- NOTE | 2019-08-12 10:47 | PCM.PN ---
- General Info Date of Service: 08/12/19 Subjective Update: Ms. Marti is a 59-year-old woman who was admitted through the emergency department last night observation status because of shortness of breath with underlying COPD exacerbation and bronchitis. She had been discharged back to the halfway earlier in the day yesterday and at that time had been very stable with good oxygenation on room air. She reports feeling modestly improved since admission last night, still somewhat short of breath and requiring supplemental oxygen. She does have expiratory wheezing but most of this seems to originate in the neck. She does have a significant component of anxiety related to her breathing status. Functional Status: Reports: Tolerating Diet, Urinating - Review of Systems General: Reports: Weakness. Denies: Fever, Chills Pulmonary: Reports: Shortness of Breath, Cough, Sputum, Wheezing. Denies: Pleuritic Chest Pain, Hemoptysis Cardiovascular: Reports: Dyspnea on Exertion. Denies: Chest Pain, Palpitations , Orthopnea, PND, Edema, Lightheadedness Gastrointestinal: Reports: No Symptoms - Patient Data Vitals - Most Recent: Last Vital Signs Temp 99 F 08/12/19 07:45 Pulse 82 08/12/19 10:40 Resp 16 08/12/19 07:45 BP 109/69 08/12/19 07:45 Pulse Ox 88 L 08/12/19 10:40 Weight - Most Recent: 200 lb I&O - Last 24 Hours: Intake & Output 08/11/19 08/12/19 08/12/19 22:59 06:59 14:59 Intake Total 1264 240 Output Total 1500 Balance -236 240 Lab Results Last 24 Hours: Laboratory Results - last 24 hr 08/11/19 08/11/19 08/12/19 Range/Units 19:24 19:24 05:40 WBC 6.3 5.4 (4.5-11.0) K/uL RBC 4.59 4.66 (3.30-5.50) M/uL Hgb 10.7 L 11.0 L (12.0-15.0) g/dL Hct 37.5 38.3 (36.0-48.0) % MCV 82 82 (80-98) fL MCH 23 L 24 L (27-31) pg MCHC 29 L 29 L (32-36) % Plt Count 157 128 L (150-400) K/uL Add Manual Diff Yes Neutrophils % (Manual) 89 H (36-66) % Band Neutrophils % 5 (5-11) % Lymphocytes % (Manual) 2 L (24-44) % Monocytes % (Manual) 3 (2-6) % Basophils % (Manual) 1 (0-1) % Sodium 140 (140-148) mmol/L Potassium 3.4 L (3.6-5.2) mmol/L Chloride 103 (100-108) mmol/L Carbon Dioxide 32 (21-32) mmol/L Anion Gap 8.4 (5.0-14.0) mmol/L BUN 8 (7-18) mg/dL Creatinine 0.6 (0.6-1.0) mg/dL Est Cr Clr Drug Dosing 71.62 mL/min Estimated GFR (MDRD) > 60 (>60) Glucose 92 (74-106) mg/dL Calcium 7.8 L (8.5-10.1) mg/dL Troponin I 0.025 (0.000-0.056) ng/mL 08/12/19 Range/Units 05:40 WBC (4.5-11.0) K/uL RBC (3.30-5.50) M/uL Hgb (12.0-15.0) g/dL Hct (36.0-48.0) % MCV (80-98) fL MCH (27-31) pg MCHC (32-36) % Plt Count (150-400) K/uL Add Manual Diff Neutrophils % (Manual) (36-66) % Band Neutrophils % (5-11) % Lymphocytes % (Manual) (24-44) % Monocytes % (Manual) (2-6) % Basophils % (Manual) (0-1) % Sodium 140 (140-148) mmol/L Potassium 3.8 (3.6-5.2) mmol/L Chloride 103 (100-108) mmol/L Carbon Dioxide 31 (21-32) mmol/L Anion Gap 5.9 (5.0-14.0) mmol/L BUN 6 L (7-18) mg/dL Creatinine 0.6 (0.6-1.0) mg/dL Est Cr Clr Drug Dosing 71.62 mL/min Estimated GFR (MDRD) > 60 (>60) Glucose 134 H (74-106) mg/dL Calcium 7.5 L (8.5-10.1) mg/dL Troponin I (0.000-0.056) ng/mL Micheal Results Last 24 Hours: Microbiology 08/11/19 19:45 Gram Stain - Final Sputum - Expectorated Med Orders - Current: Current Medications Acetaminophen (Tylenol) 650 mg PO Q4H PRN PRN Reason: Pain (Mild 1-3)/fever Hydrocodone Bitart/Acetaminophen ([place] 325-5 Mg) 1 tab PO Q4H PRN PRN Reason: Pain (moderate 4-6) Albuterol (Proventil Neb Soln) 2.5 mg NEB Q4H PRN PRN Reason: Shortness Of Breath/wheezing Last Admin: 08/12/19 05:15 Dose: 2.5 mg Albuterol/Ipratropium (Duoneb 3.0-0.5 Mg/3 Ml) 3 ml NEB QIDRT [facility] Alprazolam (Xanax) 1 mg PO TID [facility] Last Admin: 08/12/19 09:02 Dose: 1 mg Budesonide (Pulmicort) 0.5 mg INH BID [facility] Buspirone HCl (Buspar) 15 mg PO BID [facility] Last Admin: 08/12/19 08:59 Dose: 15 mg Citalopram Hydrobromide (Celexa) 40 mg PO DAILY [facility] Last Admin: 08/12/19 08:59 Dose: 40 mg Enoxaparin Sodium (Lovenox) 40 mg SUBCUT DAILY [facility] Last Admin: 08/12/19 08:59 Dose: 40 mg Furosemide (Lasix) 40 mg PO DAILY [facility] Last Admin: 08/12/19 08:59 Dose: 40 mg Guaifenesin/Dextromethorphan (Robitussin Dm) 10 ml PO Q4H PRN PRN Reason: Cough Lactobacillus Rhamnosus (Culturelle) 1 cap PO BID [facility] Levofloxacin (Levaquin) 750 mg PO BEDTIME [place] Lorazepam (Ativan) 1 mg IVPUSH Q4H PRN PRN Reason: Anxiety Last Admin: 08/12/19 02:11 Dose: 1 mg Mirtazapine (Remeron) 7.5 mg PO BEDTIME [facility] Last Admin: 08/11/19 22:40 Dose: 7.5 mg Montelukast Sodium (Singulair) 10 mg PO DAILY [facility] Last Admin: 08/12/19 08:58 Dose: 10 mg Nystatin (Nystop) 0 gm TOP QID [facility] Last Admin: 08/12/19 10:15 Dose: 1 applic Ondansetron HCl (Zofran Odt) 4 mg PO Q6H PRN PRN Reason: Nausea able to take PO Ondansetron HCl (Zofran) 4 mg IV Q4H PRN PRN Reason: Nausea/Vomiting Prednisone (Prednisone) 40 mg PO WITHBREAKFAST [facility] Discontinued Medications Albuterol (Proventil Neb Soln) 2.5 mg NEB ONETIME ONE Stop: 08/11/19 19:14 Last Admin: 08/11/19 20:11 Dose: 2.5 mg Albuterol/Ipratropium (Duoneb 3.0-0.5 Mg/3 Ml) 3 ml NEB QIDRT [facility] Last Admin: 08/12/19 10:38 Dose: 3 ml Buspirone HCl (Buspar) 15 mg PO BID [facility] Last Admin: 08/11/19 22:39 Dose: 15 mg Guaifenesin/Codeine Phosphate (Robitussin Ac) 10 ml PO Q4H [facility] Last Admin: 08/12/19 09:02 Dose: 10 ml Levofloxacin/Dextrose 750 mg/ (Premix) 150 mls @ 100 mls/hr IV ONETIME ONE Stop: 08/11/19 21:22 Last Admin: 08/11/19 20:23 Dose: 100 mls/hr Sodium Chloride (Normal Saline) 1,000 mls @ 75 mls/hr IV ASDIRECTED [facility] Last Admin: 08/12/19 08:56 Dose: 75 mls/hr Levofloxacin/Dextrose 750 mg/ (Premix) 150 mls @ 100 mls/hr IV Q24H [facility] Lorazepam (Ativan) 1 mg IVPUSH ONETIME ONE Stop: 08/11/19 19:52 Last Admin: 08/11/19 20:33 Dose: 1 mg Methylprednisolone Sodium Succinate (Solu-Medrol) 40 mg IVPUSH ONETIME ONE Stop: 08/11/19 19:53 Last Admin: 08/11/19 20:24 Dose: 40 mg Methylprednisolone Sodium Succinate (Solu-Medrol) 40 mg IVPUSH Q6H [facility] Last Admin: 08/12/19 08:53 Dose: 40 mg Nystatin (Nystop) 0 gm TOP QID [facility] Last Admin: 08/12/19 05:15 Dose: 1 applic - Exam Quality Assessment: DVT Prophylaxis General: Alert, Oriented, Cooperative, Mild Distress Lungs: Decreased Breath Sounds, Wheezing. No: Rales, Rhonchi, Rub Cardiovascular: Regular Rate, Regular Rhythm, No Murmurs GI/Abdominal Exam: Soft, Non-Tender, No Organomegaly, No Distention Extremities: Non-Tender, No Pedal Edema Sepsis Event Note - Evaluation Sepsis Screening Result: No Definite Risk - Focused Exam Vital Signs: Vital Signs Temp Pulse Resp BP Pulse Ox Pulse Ox 08/12/19 10:40 82 88 L 08/12/19 07:45 99 F 95 16 109/69 92 L 08/12/19 07:43 92 L 08/12/19 07:19 92 87 L 08/12/19 01:59 99.1 F 97 20 122/75 87 L 08/12/19 01:09 94 L 08/12/19 01:00 88 18 94 L Date Exam was Performed: 08/12/19 Time Exam was Performed: 10:47 - Problem List Review Problem List Initiated/Reviewed/Updated: Yes - My Orders Last 24 Hours: My Active Orders 08/12/19 10:36 Convert IV to Saline Lock [OM.PC] Routine 08/12/19 10:39 Albuterol/Ipratropium [DuoNeb 3.0-0.5 MG/3 ML] 3 ml NEB QIDRT 08/12/19 10:40 Dextromethorphan/guaiFENesin [Robitussin DM] 10 ml PO Q4H PRN 08/12/19 10:41 Discontinue Telemetry Monitoring [Cardiac Monitoring Discontinue] [RC] Click to Edit 08/12/19 10:45 Aspirin [Halfprin] 81 mg PO DAILY Budesonide [Pulmicort] 0.5 mg INH BID Lactobacillus Rhamnosus GG [Culturelle] 1 cap PO BID levoFLOXacin [Levaquin] 750 mg PO Q24H 08/13/19 08:00 predniSONE 40 mg PO WITHBREAKFAST 08/13/19 09:00 Loratadine [Claritin] 10 mg PO DAILY - Plan Plan:: ASSESSMENT / PLAN COPD EXACERBATION-[place] to underlying bronchitis -Ending lock IV -Levaquin 750 mg po every 24 hours -Prednisone 40 mg p.o. daily -Robitussin 10ml every 4 hours -Nebulized Albuterol and Duo-Nebs -supplemental oxygen as needed TETROLOGY OF FALLOT -continue outpatient medications. ANXIETY -IV Ativan 1 mg every 4 hours as needed for anxiety-panic symptoms. -continue home medications Maintenance issues -Orders home meds: ordered -Nutrition: consistent carb diet -Sharma catheter: not indicated at this time -DVT: Lovenox 40 mg subcut -PPI; IV Protonix 40mg daily -consult Spiritual CODE STATUS: FULL Admission status: Admit to Observation [address] [place] [address] -I expect this patient to stay less than 24 hours, not to exceed 96 hours for evaluation and management of this problem. Disposition:[facility], [place], [place]. Primary care provider: Dr. Fernandez Hospitalist: Dr. Momin
[2019-08-12] MEDS: Lactobacillus Rhamnosus GG (Probiotic) Cap PO SCH ×2 (11:24→20:11)
[2019-08-12] MEDS: Aspirin 81 MG Tab.EC PO SCH (11:24)
[2019-08-12] MEDS: Budesonide 0.5 MG/2 ML Neb Susp INH SCH ×2 (11:35→20:09)
--- NOTE | 2019-08-12 12:41 | PCM.DCSUM1 ---
Discharge Summary - Hospital Course Brief History: Ms. Marti is a 59-year-old woman who was admitted to observation status through the emergency department with increased shortness of breath and cough secondary to COPD exacerbation, bronchitis, and increased anxiety. - Discharge Data Discharge Date: 08/13/19 Discharge Disposition: DC/Tfer to SNF 03 Condition: Stable - Referral to Home Health Primary Care Physician: Christian Fernandez MD - Discharge Diagnosis/Problem(s) (1) Bronchitis SNOMED Code(s): 78481953 ICD Code: J40 - BRONCHITIS, NOT SPECIFIED ACUTE OR CHRONIC Status: Acute Current Visit: No (2) Anxiety SNOMED Code(s): 24892359 ICD Code: F41.9 - ANXIETY DISORDER, UNSPECIFIED Status: Acute Priority: Medium Current Visit: Yes (3) Hypoxia SNOMED Code(s): 380117840 ICD Code: R09.02 - HYPOXEMIA Status: Acute Current Visit: No (4) COPD with acute exacerbation SNOMED Code(s): 576556071 ICD Code: J44.1 - CHRONIC OBSTRUCTIVE PULMONARY DISEASE W (ACUTE) EXACERBATION Status: Acute Current Visit: No (5) Tetralogy of Fallot s/p repair SNOMED Code(s): 77417491388133, 07095199303230 ICD Code: Z87.74 - PERSONAL HISTORY OF CONGENITAL MALFORM OF HEART AND CIRC SYS Status: Chronic Priority: Low Current Visit: No - Patient Summary/Data Consults: Consultations 08/11/19 20:46 Consult to Spiritual Care [CONS] Routine Hospital Course: Ms. Marti is a 59-year-old woman who was admitted through the emergency department to observation status because of shortness of breath with underlying COPD exacerbation and bronchitis. She had been [facility] earlier in the day and at that time had been very stable with good oxygenation on room air. She reports feeling modestly improved since admission last night, still somewhat short of breath and requiring supplemental oxygen. She does have expiratory wheezing but most of this seems to originate in the neck. She does have a significant component of anxiety related to her breathing status. Chest x-ray obtained on admission showed no obvious infiltrates and her white blood cell count was within normal range. She was started on IV antibiotic therapy with levofloxacin as well as IV Solu-Medrol. She was treated with nebulizer therapy including DuoNeb's and albuterol. She improved over the next 2 days of her observation stay and will be discharged back to the [facility] on 2 L of oxygen via nasal cannula. Activity will be as tolerated and she will resume her usual diet. She will be discharged on additional 3 days of prednisone and an additional 5 days of oral antibiotic therapy with levofloxacin. Follow-up appointment with primary care at the retirement will be as needed. - Patient Instructions Diet: Usual Diet as Tolerated Activity: As Tolerated - Discharge Plan *PRESCRIPTION DRUG MONITORING PROGRAM REVIEWED*: No *COPY OF PRESCRIPTION DRUG MONITORING REPORT IN PATIENT ABELINO: No Prescriptions/Med Rec: Lactobacillus Rhamnosus GG [Culturelle] 1 cap PO BID #60 cap levoFLOXacin [Levaquin] 750 mg PO DAILY #5 tab predniSONE 40 mg PO DAILY #6 tablet Home Medications: Home Meds ALPRAZolam [Alprazolam] 1 mg PO TID 03/19/14 [History] Albuterol [Proventil Neb Soln] 1 ampule IH Q4H PRN 03/19/14 [History] Budesonide [Pulmicort] 0.5 mg IH BID 03/19/14 [History] Citalopram Hydrobromide [Citalopram HBr] 40 mg PO DAILY 03/19/14 [History] Loratadine [Claritin] 10 mg PO DAILY 03/19/14 [History] Montelukast [Singulair] 10 mg PO DAILY 03/19/14 [History] Multivitamin [Multiple Vitamins] 1 tab PO DAILY 03/19/14 [History] Pseudoephedrine HCl [Nexafed] 30 mg PO TID 03/19/14 [History] Albuterol [Ventolin HFA] 2 puff INH Q4H PRN 05/26/17 [History] Nystatin 1 appful TOP BID 05/26/17 [History] guaiFENesin [Robafen] 10 ml PO Q4H PRN 05/26/17 [History] Acetaminophen [Acetaminophen ER] 500 mg PO QID 12/26/17 [History] Nystatin 1 each TOP ASDIRECTED PRN 12/26/17 [History] Sennosides/Docusate Sodium [Senna Plus Tablet] 2 tab PO Q12HR PRN 12/26/17 [ History] traMADol HCl [Tramadol HCl] 50 mg PO QID PRN 12/26/17 [History] Ipratropium/Albuterol Sulfate [Iprat-Albut 0.5-3(2.5) MG/3 ML] 3 ml IH QID 01/07 [History] Mirtazapine [Remeron] 7.5 mg PO BEDTIME 01/07/19 [History] busPIRone [Buspar] 15 mg PO BID 01/07/19 [History] Aspirin [Adult Low Dose Aspirin EC] 81 mg PO DAILY 08/09/19 [History] Fluticasone Propionate [Flovent] 50 mcg IH BID 08/09/19 [History] Furosemide [Lasix] 40 mg PO DAILY 08/09/19 [History] Nystatin 15 gm TP QID #15 powder 08/11/19 [Rx] Lactobacillus Rhamnosus GG [Culturelle] 1 cap PO BID #60 cap 08/12/19 [Rx] levoFLOXacin [Levaquin] 750 mg PO DAILY #5 tab 08/12/19 [Rx] predniSONE 40 mg PO DAILY #6 tablet 08/12/19 [Rx] Oxygen Therapy Mode: Nasal Cannula Oxygen Flow Rate (L/min): 2 Referrals: Christian Fernandez MD [Primary Care Provider] - - Discharge Summary/Plan Comment DC Time >30 min.: No - Patient Data Vitals - Most Recent: Last Vital Signs Temp 97.3 F 08/12/19 10:57 Pulse 91 08/12/19 11:38 Resp 16 08/12/19 10:57 BP 107/67 08/12/19 10:57 Pulse Ox 96 08/12/19 11:38 Weight - Most Recent: 200 lb I&O - Last 24 hours: Intake & Output 08/11/19 08/12/19 08/12/19 22:59 06:59 14:59 Intake Total 1264 615 Output Total 1500 Balance -236 615 Lab Results - Last 24 hrs: Laboratory Results - last 24 hr 08/11/19 08/11/19 08/12/19 Range/Units 19:24 19:24 05:40 WBC 6.3 5.4 (4.5-11.0) K/uL RBC 4.59 4.66 (3.30-5.50) M/uL Hgb 10.7 L 11.0 L (12.0-15.0) g/dL Hct 37.5 38.3 (36.0-48.0) % MCV 82 82 (80-98) fL MCH 23 L 24 L (27-31) pg MCHC 29 L 29 L (32-36) % Plt Count 157 128 L (150-400) K/uL Add Manual Diff Yes Neutrophils % (Manual) 89 H (36-66) % Band Neutrophils % 5 (5-11) % Lymphocytes % (Manual) 2 L (24-44) % Monocytes % (Manual) 3 (2-6) % Basophils % (Manual) 1 (0-1) % Sodium 140 (140-148) mmol/L Potassium 3.4 L (3.6-5.2) mmol/L Chloride 103 (100-108) mmol/L Carbon Dioxide 32 (21-32) mmol/L Anion Gap 8.4 (5.0-14.0) mmol/L BUN 8 (7-18) mg/dL Creatinine 0.6 (0.6-1.0) mg/dL Est Cr Clr Drug Dosing 71.62 mL/min Estimated GFR (MDRD) > 60 (>60) Glucose 92 (74-106) mg/dL Calcium 7.8 L (8.5-10.1) mg/dL Troponin I 0.025 (0.000-0.056) ng/mL 08/12/19 Range/Units 05:40 WBC (4.5-11.0) K/uL RBC (3.30-5.50) M/uL Hgb (12.0-15.0) g/dL Hct (36.0-48.0) % MCV (80-98) fL MCH (27-31) pg MCHC (32-36) % Plt Count (150-400) K/uL Add Manual Diff Neutrophils % (Manual) (36-66) % Band Neutrophils % (5-11) % Lymphocytes % (Manual) (24-44) % Monocytes % (Manual) (2-6) % Basophils % (Manual) (0-1) % Sodium 140 (140-148) mmol/L Potassium 3.8 (3.6-5.2) mmol/L Chloride 103 (100-108) mmol/L Carbon Dioxide 31 (21-32) mmol/L Anion Gap 5.9 (5.0-14.0) mmol/L BUN 6 L (7-18) mg/dL Creatinine 0.6 (0.6-1.0) mg/dL Est Cr Clr Drug Dosing 71.62 mL/min Estimated GFR (MDRD) > 60 (>60) Glucose 134 H (74-106) mg/dL Calcium 7.5 L (8.5-10.1) mg/dL Troponin I (0.000-0.056) ng/mL [facility]IA Results - Last 24 hrs: Microbiology 08/11/19 19:45 Gram Stain - Final Sputum - Expectorated Med Orders - Current: Current Medications Acetaminophen (Tylenol) 650 mg PO Q4H PRN PRN Reason: Pain (Mild 1-3)/fever Hydrocodone Bitart/Acetaminophen ([place] 325-5 Mg) 1 tab PO Q4H PRN PRN Reason: Pain (moderate 4-6) Albuterol (Proventil Neb Soln) 2.5 mg NEB Q4H PRN PRN Reason: Shortness Of Breath/wheezing Last Admin: 08/12/19 05:15 Dose: 2.5 mg Albuterol/Ipratropium (Duoneb 3.0-0.5 Mg/3 Ml) 3 ml NEB QIDRT [facility] Last Admin: 08/12/19 11:37 Dose: Not Given Alprazolam (Xanax) 1 mg PO TID [facility] Last Admin: 08/12/19 09:02 Dose: 1 mg Aspirin (Halfprin) 81 mg PO DAILY [facility] Last Admin: 08/12/19 11:24 Dose: 81 mg Budesonide (Pulmicort) 0.5 mg INH BIDRT [facility] Last Admin: 08/12/19 11:35 Dose: 0.5 mg Buspirone HCl (Buspar) 15 mg PO BID [facility] Last Admin: 08/12/19 08:59 Dose: 15 mg Citalopram Hydrobromide (Celexa) 40 mg PO DAILY [facility] Last Admin: 08/12/19 08:59 Dose: 40 mg Enoxaparin Sodium (Lovenox) 40 mg SUBCUT DAILY [facility] Last Admin: 08/12/19 08:59 Dose: 40 mg Furosemide (Lasix) 40 mg PO DAILY [facility] Last Admin: 08/12/19 08:59 Dose: 40 mg Guaifenesin/Dextromethorphan (Robitussin Dm) 10 ml PO Q4H PRN PRN Reason: Cough Lactobacillus Rhamnosus (Culturelle) 1 cap PO BID [facility] Last Admin: 08/12/19 11:24 Dose: 1 cap Levofloxacin (Levaquin) 750 mg PO BEDTIME [facility] Loratadine (Claritin) 10 mg PO DAILY [facility] Lorazepam (Ativan) 1 mg IVPUSH Q4H PRN PRN Reason: Anxiety Last Admin: 08/12/19 02:11 Dose: 1 mg Mirtazapine (Remeron) 7.5 mg PO BEDTIME [facility] Last Admin: 08/11/19 22:40 Dose: 7.5 mg Montelukast Sodium (Singulair) 10 mg PO DAILY [facility] Last Admin: 08/12/19 08:58 Dose: 10 mg Nystatin (Nystop) 0 gm TOP QID [facility] Last Admin: 08/12/19 10:15 Dose: 1 applic Ondansetron HCl (Zofran Odt) 4 mg PO Q6H PRN PRN Reason: Nausea able to take PO Ondansetron HCl (Zofran) 4 mg IV Q4H PRN PRN Reason: Nausea/Vomiting Prednisone (Prednisone) 40 mg PO WITHBREAKFAST [facility] Discontinued Medications Albuterol (Proventil Neb Soln) 2.5 mg NEB ONETIME ONE Stop: 08/11/19 19:14 Last Admin: 08/11/19 20:11 Dose: 2.5 mg Albuterol/Ipratropium (Duoneb 3.0-0.5 Mg/3 Ml) 3 ml NEB QIDRT [facility] Last Admin: 08/12/19 10:38 Dose: 3 ml Buspirone HCl (Buspar) 15 mg PO BID [facility] Last Admin: 08/11/19 22:39 Dose: 15 mg Guaifenesin/Codeine Phosphate (Robitussin Ac) 10 ml PO Q4H [facility] Last Admin: 08/12/19 09:02 Dose: 10 ml Levofloxacin/Dextrose 750 mg/ (Premix) 150 mls @ 100 mls/hr IV ONETIME ONE Stop: 08/11/19 21:22 Last Admin: 08/11/19 20:23 Dose: 100 mls/hr Sodium Chloride (Normal Saline) 1,000 mls @ 75 mls/hr IV ASDIRECTED [facility] Last Admin: 08/12/19 08:56 Dose: 75 mls/hr Levofloxacin/Dextrose 750 mg/ (Premix) 150 mls @ 100 mls/hr IV Q24H [facility] Lorazepam (Ativan) 1 mg IVPUSH ONETIME ONE Stop: 08/11/19 19:52 Last Admin: 08/11/19 20:33 Dose: 1 mg Methylprednisolone Sodium Succinate (Solu-Medrol) 40 mg IVPUSH ONETIME ONE Stop: 08/11/19 19:53 Last Admin: 08/11/19 20:24 Dose: 40 mg Methylprednisolone Sodium Succinate (Solu-Medrol) 40 mg IVPUSH Q6H [facility] Last Admin: 08/12/19 08:53 Dose: 40 mg Nystatin (Nystop) 0 gm TOP QID [facility] Last Admin: 08/12/19 05:15 Dose: 1 applic - Exam Quality Assessment: Reports: Supplemental Oxygen, DVT Prophylaxis General: Reports: Alert, Oriented, Cooperative, Mild Distress Lungs: Reports: Decreased Breath Sounds, Wheezing (Most of which originates in her neck and throat). Denies: Rales, Rhonchi, Rub Cardiovascular: Reports: Regular Rate, Regular Rhythm, No Murmurs GI/Abdominal Exam: Soft, Non-Tender, No Organomegaly, No Distention Extremities: Non-Tender, No Pedal Edema
[2019-08-12] MEDS: guaiFENesin/Dextromethorphan 100-10 MG/5 ML Soln 10 ML Cup PO PRN ×2 (13:09→17:04)
[2019-08-12] MEDS: Acetaminophen 325 MG Tab PO PRN (13:15)
[2019-08-12] MEDS ORDERED: Levofloxacin/Dextrose 5%-Water 750 MG in Premix Bag 1 BAG IV SCH (20:00)
[2019-08-12] MEDS: Mirtazapine 15 MG Tab PO SCH (20:12)
[2019-08-12] MEDS ORDERED: Levofloxacin 250 MG Tab PO SCH (21:00)
[2019-08-13] MEDS: Albuterol 0.083% 2.5 MG/3 ML Neb Soln NEB PRN ×2 (01:58→05:22)
[2019-08-13] MEDS: guaiFENesin/Dextromethorphan 100-10 MG/5 ML Soln 10 ML Cup PO PRN (02:26)
[2019-08-13] MEDS: Acetaminophen 325 MG Tab PO PRN ×2 (02:32→11:57)
[2019-08-13] MEDS: Nystatin Topical Powder 15 GM Bottle TOP SCH ×2 (05:19→09:53)
[2019-08-13] MEDS: Budesonide 0.5 MG/2 ML Neb Susp INH SCH (07:25)
[2019-08-13] MEDS: Albuterol/Ipratropium 3.0-0.5 MG/3 ML Neb Soln NEB SCH ×2 (07:25→10:53)
[2019-08-13] MEDS ORDERED: predniSONE 20 MG Tab PO SCH (08:00)
[2019-08-13] MEDS ORDERED: Loratadine 10 MG Tab PO SCH (09:00)
[2019-08-13] MEDS: Lactobacillus Rhamnosus GG (Probiotic) Cap PO SCH (09:50)
[2019-08-13] MEDS: Furosemide 40 MG Tab PO SCH (09:51)
[2019-08-13] MEDS: Citalopram 20 MG Tab PO SCH (09:51)
[2019-08-13] MEDS: busPIRone 5 MG Tab PO SCH (09:51)
[2019-08-13] MEDS: Aspirin 81 MG Tab.EC PO SCH (09:52)
[2019-08-13] MEDS: Montelukast 10 MG Tab PO SCH (09:52)
[2019-08-13] MEDS: Enoxaparin 40 MG/0.4 ML Syringe SUBCUT SCH (09:52)
[2019-08-13] MEDS: ALPRAZolam 0.5 MG Tab PO SCH ×2 (09:55→13:13)
[2019-08-13 11:09] VITALS: BP 104/74; PULSE 83
== END 2019-08-13 14:03 ==
LOC: JP.ED 18:51 → JP.MS 20:03 → UNDOADMOB 20:03 → UNDODISOB 08-13 14:03
PROVIDERS: ADMIT Hospitalist; ATTEND Hospitalist
DX: J44.1 Chronic obstructive pulmonary disease with (acute) exacerbation (principal); R09.02 Hypoxemia; F41.9 Anxiety disorder, unspecified; I10 Essential (primary) hypertension; K21.9 Gastro-esophageal reflux disease without esophagitis; M19.90 Unspecified osteoarthritis, unspecified site; E66.9 Obesity, unspecified; Z88.6 Allergy status to analgesic agent; Z88.1 Allergy status to other antibiotic agents; Z88.0 Allergy status to penicillin; Z88.2 Allergy status to sulfonamides; Z79.899 Other long term (current) drug therapy; Z87.74 Personal history of (corrected) congenital malformations of heart and circulatory system; Z68.41 Body mass index [BMI] 40.0-44.9, adult
CPT/HCPCS: 36415; 71045; 80048; 82962; 84484; 85025; 85027; 87070; 87077; 87205; 94640; 94667; 94762; 96361; 96365; 96366; 96372; 96375; 96376; 99284; 99285; A9270; J1650; J1956; J2060; J2920; J7030; G0378; J7620-GY